=== PATIENT | male | born 1950 | race Caucasian/White ===

== ENCOUNTER → 2017-07-12 | Outpatient (CLI) | payer MEDICARE, BC, OTHER ==
[~2017-07-12] MED LIST: LIDOCAINE 1% MDV 20ML VIAL As Ordered ONE
--- NOTE | 2017-07-12 13:18 | REP ---
Clinical: Palpable mass. Adenopathy. Technique: Real time rodríguez scale and color evaluation using linear high frequency transducer. Findings: Directed ultrasound examination of the palpable mass along the right upper neck demonstrates a prominent but otherwise normal appearing lymph node measuring 20 x 18 x 8 mm demonstrating appropriate vascularity and central hilum. No fluid collection or further mass lesion identified. Impression: Palpable mass corresponds to normal appearing lymph node. Signed by Darnell Jackson MD 07/12/2017 01:10 P
--- NOTE | 2017-07-12 16:47 | REP ---
ULTRASOUND GUIDED RIGHT SUBMANDIBULAR LYMPH NODE BIOPSY: The procedure was performed under the direct supervision of Dr. Velasquez. The patient has a history of a 2 x 1.8 x 0.8 cm lymph node in the right submandibular region seen on a previous ultrasound performed earlier today. The risks and benefits of the procedure were explained to the patient and informed consent was obtained. The right submandibular lymph node was localized using ultrasound guidance. The skin was prepped and draped in a sterile fashion. 1% Lidocaine was used as a local anesthetic. Using ultrasound 6 fine-needle aspirations were obtained using 25 gauge needles. The patient tolerated the procedure well and there were no immediate complications. After the appropriate amount of monitored convalescence the patient was discharged from the department. Reviewed by BARBARA Navarrete 07/13/2017 03:02 PEdited and Signed by Cheo Velasquez MD 07/13/2017 04:09 P
== END | disposition home or self-care (01) ==
LOC: M RADPRO 10:15
PROVIDERS: ATTEND Surgery
DX: R89.6 Abnormal cytological findings in specimens from other organs, systems and tissues (principal); Z88.2 Allergy status to sulfonamides; Z79.899 Other long term (current) drug therapy; Z79.84 Long term (current) use of oral hypoglycemic drugs

== ENCOUNTER 2019-01-29 05:29 | Emergency (ER) | payer MEDICARE, BC, OTHER ==
[~2019-01-29] VITALS: Ht 188 cm; Wt 109.1 kg
[2019-01-29] MEDS ORDERED: KETOROLAC 30 MG/ML VIAL (J1885) IV ONE (06:00)
[2019-01-29] MEDS ORDERED: TAMSULOSIN 0.4 MG CAP PO ONE (06:30)
[2019-01-29 06:31] VITALS: BP 155/81
--- NOTE | 2019-01-29 07:20 | REPVR ---
EXAM: CT Abdomen and Pelvis Without Contrast EXAM DATE/TIME: 01/29/19 (6:09am) CLINICAL HISTORY: 68 year old male with left flank pain. Left renal colic. TECHNIQUE: Imaging protocol: Axial computed tomography images of the abdomen and pelvis without contrast. Coronal and sagittal reformatted images were created and reviewed. Radiation optimization: All CT scans at this facility use at least one of these dose optimization techniques: automated exposure control; mA and/or kV adjustment per patient size (includes targeted exams where dose is matched to clinical indication); or iterative reconstruction. COMPARISON: CT ABDOMEN PELVIS of 11/05/15 FINDINGS: Lower thorax: No acute findings. No pleural effusions. ABDOMEN: Liver: Normal. No solid mass. Gallbladder and bile ducts: Normal. No calcified stones. No ductal dilatation. Pancreas: Normal. No ductal dilatation. Spleen: Normal. No splenomegaly. Adrenals: Normal. No mass. Kidneys and ureters: Moderate left hydronephrosis. Irregular obstructing stone (5 mm size) in the proximal left ureter (located 4 cm below the left UP junction). No distal ureteral stones. Stomach and bowel: Normal. No bowel obstruction. No mucosal thickening. Appendix: A normal appendix is likely visualized. No evidence of appendicitis. PELVIS: Bladder: Unremarkable as visualized. Reproductive: Moderately enlarged prostate gland (5 - 5.5 cm diameter). ABDOMEN and PELVIS: Intraperitoneal space: Normal. No free air. No significant fluid collection. Bones/joints: No acute fracture nor dislocation. Soft tissues: Unremarkable. Vasculature: Normal. No abdominal aortic aneurysm. Lymph nodes: Normal. No enlarged lymph nodes. IMPRESSION: Moderate left hydronephrosis. Irregular obstructing stone (5 mm size) in the proximal left ureter (located 4 cm below the left UP junction). No distal ureteral stones. Moderately enlarged prostate gland. Electronically signed by: Marian Barrow On 01/29/2019 07:20:38 AM
[2019-01-29 07:24] LABS: BASO % 0.6 % (0.0-1.0); EOS # 0.2 10^3/uL (0.0-0.50); EOS % 3.5 % (0.0-3.0); HEMATOCRIT 40.4 % (42.0-52.0); LYMPH # 0.8 10^3/uL (1.5-4.5); MEAN CORPUSCULAR HGB CONC 34.7 g/dl (32.0-36.5); MEAN CORPUSCULAR VOLUME 89.6 fl (80.0-96.0); MONO # 0.7 10^3/uL (0.0-0.8); MONO % 14.5 % (0.0-5.0); NEUTROPHILS # 3.2 10^3/uL (1.8-7.7); PLATELET COUNT, AUTOMATED 222 10^3/uL (150-450); RED BLOOD COUNT 4.51 10^6/uL (4.30-6.10); WHITE BLOOD COUNT 4.9 10^3/uL (4.0-10.0)
[2019-01-29 07:33] LABS: BLOOD UREA NITROGEN 24 MG/DL (7-18); CALCIUM LEVEL 8.5 MG/DL (8.8-10.2); CARBON DIOXIDE LEVEL 26 MEQ/L (21-32); CHLORIDE LEVEL 106 MEQ/L (98-107); CREATININE FOR GFR 1.15 MG/DL (0.70-1.30); GLOMERULAR FILTRATION RATE > 60.0 (>49); GLUCOSE, FASTING 171 MG/DL (70-100); POTASSIUM SERUM 4.2 MEQ/L (3.5-5.1); SODIUM LEVEL 139 MEQ/L (136-145)
[2019-01-29] MEDS ORDERED: NS 500 ML IV ONE (07:45)
[2019-01-29] MEDS ORDERED: HYDR-3715 PO (08:32)
[2019-01-29] MEDS ORDERED: FLOM0.4C39 PO (08:32)
[2019-01-29] MEDS ORDERED: IBUP-1022 PO (08:34)
[2019-01-30] MEDS ORDERED: RAMI1CAP24 (23:05)
[2019-01-30] MEDS ORDERED: JANU100T (23:05)
[2019-01-30] MEDS ORDERED: ATOR40TA75 (23:05)
[2019-01-30] MEDS ORDERED: METF500T13 (23:05)
== END 2019-01-29 08:45 | disposition home or self-care (01) ==
LOC: M ED 05:29
DX: N23 Unspecified renal colic (principal); N13.30 Unspecified hydronephrosis; E11.9 Type 2 diabetes mellitus without complications; E78.00 Pure hypercholesterolemia, unspecified; Z87.442 Personal history of urinary calculi; Z88.1 Allergy status to other antibiotic agents; Z88.2 Allergy status to sulfonamides

== ENCOUNTER 2019-01-30 22:57 | Inpatient (IN) | payer MEDICARE, BC, OTHER ==
[~2019-01-30] VITALS: Ht 188 cm; Wt 109.9 kg
[~2019-01-30 22:57] MED LIST changes: +FLOM0.4C39 PO; +HYDR-3715 PO; +IBUP-1022 PO; -LIDOCAINE 1% MDV 20ML VIAL As Ordered ONE
[2019-01-30] MEDS ORDERED: METF500T13 (23:05)
[2019-01-30] MEDS ORDERED: JANU100T (23:05)
[2019-01-30] MEDS ORDERED: ATOR40TA75 (23:05)
[2019-01-30] MEDS ORDERED: RAMI1CAP24 (23:05)
[2019-01-30] MEDS ORDERED: KETOROLAC 30 MG/ML VIAL (J1885) IV ONE (23:30)
[2019-01-31 00:10] LABS: CALCIUM LEVEL 8.4 MG/DL (8.8-10.2); CREATININE FOR GFR 2.06 MG/DL (0.70-1.30); GLOMERULAR FILTRATION RATE 34.5 (>49); POTASSIUM SERUM 3.9 MEQ/L (3.5-5.1)
[2019-01-31 00:12] LABS: BASO % 0.2 % (0.0-1.0); EOS # 0.1 10^3/uL (0.0-0.50); EOS % 0.4 % (0.0-3.0); HEMATOCRIT 38.3 % (42.0-52.0); HEMOGLOBIN 13.3 g/dl (13.5-17.5); LYMPH # 0.6 10^3/uL (1.5-4.5); LYMPH % 4.8 % (24.0-44.0); MEAN CORPUSCULAR HGB CONC 34.7 g/dl (32.0-36.5); MEAN CORPUSCULAR VOLUME 89.3 fl (80.0-96.0); MONO # 1.6 10^3/uL (0.0-0.8); MONO % 14.2 % (0.0-5.0); NEUTROPHILS # 9.2 10^3/uL (1.8-7.7); NEUTROPHILS % 79.9 % (36.0-66.0); PLATELET COUNT, AUTOMATED 222 10^3/uL (150-450); RED BLOOD COUNT 4.29 10^6/uL (4.30-6.10); WHITE BLOOD COUNT 11.5 10^3/uL (4.0-10.0)
[2019-01-31] MEDS ORDERED: MORPHINE 4 MG/ML 1ML VIAL/SYRINGE (J2270) IV PRN (00:15)
[2019-01-31] MEDS ORDERED: ONDANSETRON 4MG/2ML VIAL (J2405) IV ONE (00:15)
--- NOTE | 2019-01-31 01:52 | REPVR ---
EXAM: CT Abdomen and Pelvis Without Contrast EXAM DATE/TIME: 01/31/2019 12:12 AM CLINICAL HISTORY: 68 years old, male; Abdominal pain; Flank; Left; Additional info: Left renal colic TECHNIQUE: Imaging protocol: Axial computed tomography images of the abdomen and pelvis without contrast. Coronal and sagittal reformatted images were created and reviewed. Radiation optimization: All CT scans at this facility use at least one of these dose optimization techniques: automated exposure control; mA and/or kV adjustment per patient size (includes targeted exams where dose is matched to clinical indication); or iterative reconstruction. COMPARISON: CT ABD PELVIS W/O CONTRAST 01/29/2019 6:07 AM FINDINGS: Lower thorax: Unremarkable. ABDOMEN: Liver: Unremarkable. No liver lesion is seen. The contour of the liver is smooth. No hepatomegaly is noted. Gallbladder and bile ducts: No calcified gallstones are seen. No gallbladder wall thickening, pericholecystic fluid, or pericholecystic inflammatory changes are identified. No dilation of the intrahepatic or extrahepatic bile ducts is noted. Pancreas: The pancreas is atrophic and otherwise unremarkable. No dilation of the main pancreatic duct is noted. Spleen: Unremarkable. No splenomegaly. Adrenals: Normal. No mass. Kidneys and ureters: There is a 5 mm calculus in the left distal ureter just proximal to the left ureterovesical junction and [id number] left hydroureteronephrosis with left perinephric and periureteral stranding. This 5 mm left ureteral calculus has migrated distally from the left proximal ureter since the prior CT scan on 01/29/2019. There is also a 4 mm calculus in the right distal ureter just proximal to the right ureterovesical junction and mild right hydroureteronephrosis with right perinephric and right periureteral stranding. The 4 mm right ureteral calculus that has migrated distally from the right distal ureter since the prior CT scan on 01/29/2019. No stones are noted in the renal collecting systems. No renal lesion is identified. Stomach and bowel: There is no evidence for a bowel obstruction, diverticulosis, diverticulitis, colitis, pneumatosis intestinalis, intussusception, volvulus, or perforated viscus. The descending colon and sigmoid colon are decompressed, limiting their optimal evaluation. Appendix: Normal. There is no evidence for appendicitis. PELVIS: Bladder: No stones are noted in the urinary bladder. There is no bladder wall thickening. There is a small fat containing direct right inguinal hernia that also contains a portion of the right anterior aspect of the urinary bladder, which is similar in appearance compared to the prior CT scan on 01/29/2019. Reproductive: The prostate gland is enlarged and measures 5.7 cm x 5.7 cm x 5.3 cm, and the volume of the prostate gland is increased and measures 90.2 mL. The seminal vesicles are unremarkable. ABDOMEN and PELVIS: Intraperitoneal space: Normal. No free air. No fluid collection. Bones/joints: The imaged bony structures are intact. There is no suspicious osteolytic or osteoblastic lesion. There are degenerative changes in the lumbar spine. Soft tissues: Unremarkable. Vasculature: The abdominal aorta is normal in caliber. There are mild atherosclerotic calcifications. Lymph nodes: Normal. No enlarged lymph nodes. IMPRESSION: 1. 5 mm calculus in the left distal ureter just proximal to the left uterovesical junction that has migrated distally from the left proximal ureter since the prior CT scan on 01/29/2019 and is mild to moderate left hydroureteronephrosis. 2. 4 mm calculus in the right distal ureter just proximal to the right ureterovesical junction that has migrated distally from the right distal ureter since the prior CT scan on 01/29/2019 and there is mild right hydroureteronephrosis. 3. Small fat containing direct right inguinal hernia that also contains a portion of the right anterior aspect of the urinary bladder, which is similar in appearance compared to the prior CT scan on 01/29/2019. 4. Enlarged prostate gland. Electronically signed by: Toni Blakely On 01/31/2019 01:52:23 AM
[2019-01-31] MEDS ORDERED: FLOM0.4C39 PO (03:15)
[2019-01-31] MEDS ORDERED: IBUP1TAB6 PO (03:15)
[2019-01-31] MEDS ORDERED: METF500T13 PO (03:15)
[2019-01-31] MEDS ORDERED: RAMI1CAP24 PO (03:15)
[2019-01-31] MEDS ORDERED: NORC1TAB7 PO (03:15)
[2019-01-31] MEDS ORDERED: ASPI81TAEC PO (03:15)
[2019-01-31] MEDS ORDERED: ATOR40TA75 PO (03:15)
[2019-01-31] MEDS ORDERED: VITMTA PO (03:15)
[2019-01-31] MEDS ORDERED: JANU100T PO (03:15)
[2019-01-31] MEDS ORDERED: GLUCAGON FOR INJ 1 MG VIAL (J1610) SC PRN (04:00)
[2019-01-31] MEDS ORDERED: DEXTROSE 50% 50 ML SYRINGE IV PRN (04:00)
[2019-01-31] MEDS ORDERED: GLUCOSE 4 GM CHEW TABLET PO PRN (04:00)
[2019-01-31] MEDS: NS 1,000 ML IV SCH ×3 (05:17→20:44)
[2019-01-31 05:45] VITALS: BP 140/81
[2019-01-31] MEDS: PHENAZOPYRIDINE 100 MG TAB PO SCH ×2 (06:00→14:00)
[2019-01-31] MEDS: HumaLOG INSULIN (NovoLOG) PER UNIT SC SCH ×3 (06:22→18:00)
--- NOTE | 2019-01-31 06:55 | HPE ---
DATE OF ADMISSION: 01/31/2019 HISTORY OF PRESENT ILLNESS: The patient is a 68-year-old male with past medical history of hypertension and prediabetes who presented first to the [facility] emergency room on January 28, 2019 with abdominal pain and back pain for two days, and that was similar to the pain he felt when he previously had a kidney stone. He states that the pain at its worst was a 9 out of 10. When he was in the ER last, he was given hydrocodone and told to follow-up with his primary care physician. He was also found to have a kidney stone that was 4 mm in the right ureteropelvic junction. This morning, he states that he feels worse than he did on Wednesday, his pain is 9 out of 10, he is unable to be comfortable and he has a constant pain in his back and bloating in his stomach. The hydrocodone did not help his pain nor did the ibuprofen that he was given by the emergency room so he came back. In the emergency room, he underwent a CT scan and was found to have a 5 mm calculus in the left distal ureter that had moved distally from the left proximal ureter and a 4 mm calculus on the right distal ureter, so the hospitalist service was called for admission. PAST MEDICAL HISTORY: The patient has: 1. Hypertension. 2. Prediabetes. 3. Hyperlipidemia. PAST SURGICAL HISTORY: 1. Tonsillectomy. 2. Discectomy. ALLERGIES: No known drug allergies. SOCIAL HISTORY: He is a nonsmoker. Does not drink alcohol. 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 PHYSICAL EXAMINATION: VITALS: Temperature 98, pulse is 85, respiratory rate 16, blood pressure 148/68, pulse oximetry is 95% on room air. GENERAL: He is awake, lying in bed, very pleasant, does not appear in any acute distress. HEENT EXAM: Mucous membranes are moist. Extraocular movements are intact. He has good dentition. Thyroid is not enlarged. LUNGS: Clear to auscultation bilaterally without any adventitious breath sounds appreciated. CARDIOVASCULAR: Regular rate and rhythm. No murmurs, rubs or gallops. Normal S1 and normal S2. ABDOMEN: Soft and nontender. Positive bowel sounds. No organomegaly and no masses. EXTREMITIES: No clubbing, cyanosis, or edema. MUSCULOSKELETAL: He has 5/5 strength in his upper and lower extremities. NEURO: Cranial nerves II through XII are intact without any focal deficit. He is awake, alert and oriented times three with a normal mood and a normal affect. LABS: His white blood cell count is 11.5, hemoglobin is 13.3, hematocrit is 38.3, and his platelet count is 222. His sodium is 136, potassium 3.9, chloride is 101, carbon dioxide is 27. His BUN is 23. His creatinine is 2.06. Fasting glucose is 275 and his calcium is 8.4. His urine was significant for 3+ glucose, 3+ blood, 7 white blood cells, and 82 red blood cells. IMAGING: He underwent an abdomen and pelvis CT with the findings of: 1. 5 mm calculus in the left distal ureter just proximal to the left ureterovesical junction that had migrated distally from the left proximal ureter since the prior CT scan on January 29, 2019 and there is mild to moderate left hydroureteronephrosis. 2. 4 mm calculus on the right distal ureter just proximal to the ureterovesical junction that has migrated distally from the right distal ureter since the prior CT scan on January 29, 2019 and there is mild right hydroureteronephrosis. 3. Small fat containing direct right inguinal hernia that also contains a portion of the right anterior aspect of the urinary bladder which is similar in appearance compared the prior CT scan on 01/29/2019. 4. Enlarged prostate gland. ASSESSMENT/PLAN: This is a 68-year-old male with bilateral ureteral stones and bilateral hydroureteronephrosis. PLAN: 1. Ureteral stones. The patient will be aggressively hydrated with IV fluids and admitted to the medical/surgical floor. Urology has been consulted and will see the patient in the morning, likely for surgery to remove the stones. The patient will remain nothing by mouth for now and pain will be managed with morphine 2 mg IV every 4 hours. We will hold the patient's home ramipril, metformin, simvastatin and aspirin at this time for pending surgery. 2. Prediabetes. The patient will be placed on sliding scale insulin at this time and the patient will remain nothing by mouth until further instruction from the urologist. 3. Hypertension. The patient is on ramipril at home. At this time, his blood pressure is 148/68. Holding the ramipril for possible surgery in the morning. Will continue to monitor. My faculty preceptor for this patient encounter was physically present during the encounter and was fully available. All aspects of the patient interview, examination, medical decision making process, and medical care plan development were reviewed and approved by the faculty preceptor. The faculty preceptor is aware and concurs with the plan as stated in the body of this note and will attest to such by his/her co-signature. THOR
--- NOTE | 2019-01-31 07:32 | IPNPDOC ---
Date Seen The patient was seen on 01/31/19. Progress Note SUBJECTIVE: Pt had some relief with toradol, but due to increased creatinine, changed to morphine. no c/o chills, dysuria. plans for stent and dc today or in am per urology. no c/o sob despite iv fluids. PHYSICAL EXAMINATION: VITALS: PLS SEE BELOW GENERAL: He is awake, lying in bed, very pleasant, does not appear in any acute distress. HEENT EXAM: Mucous membranes are moist. Extraocular movements are intact. He has good dentition. Thyroid is not enlarged. LUNGS: Clear to auscultation bilaterally without any adventitious breath sounds appreciated. CARDIOVASCULAR: Regular rate and rhythm. No murmurs, rubs or gallops. Normal S1 and normal S2. ABDOMEN: no cva tenderness Soft and nontender. Positive bowel sounds. No organomegaly and no masses. EXTREMITIES: No clubbing, cyanosis, or edema. MUSCULOSKELETAL: He has 5/5 strength in his upper and lower extremities. NEURO: Cranial nerves II through XII are intact without any focal deficit. He is awake, alert and oriented times three with a normal mood and a normal affect. LABS: reviewed. pls see below His urine was significant for 3+ glucose, 3+ blood, 7 white blood cells, and 82 red blood cells. IMAGING: He underwent an abdomen and pelvis CT with the findings of: 1. 5 mm calculus in the left distal ureter just proximal to the left ureterovesical junction that had migrated distally from the left proximal ureter since the prior CT scan on January 29, 2019 and there is mild to moderate left hydroureteronephrosis. 2. 4 mm calculus on the right distal ureter just proximal to the ureterovesical junction that has migrated distally from the right distal ureter since the prior CT scan on January 29, 2019 and there is mild right hydroureteronephrosis. 3. Small fat containing direct right inguinal hernia that also contains a portion of the right anterior aspect of the urinary bladder which is similar in appearance compared the prior CT scan on 01/29/2019. 4. Enlarged prostate gland. ASSESSMENT/PLAN: The patient is a 68-year-old male with past medical history of hypertension and prediabetes who presented first to the [facility] emergency room on January 28, 2019 with abdominal pain and back pain for two days, and that was similar to the pain he felt when he previously had a kidney stone. He states that the pain at its worst was a 9 out of 10. When he was in the ER last, he was given hydrocodone and told to follow-up with his primary care physician. He was also found to have a kidney stone that was 4 mm in the right ureteropelvic junction. This morning, he states that he feels worse than he did on Wednesday, his pain is 9 out of 10, he is unable to be comfortable and he has a constant pain in his back and bloating in his stomach. The hydrocodone did not help his pain nor did the ibuprofen that he was given by the emergency room so he came back. In the emergency room, he underwent a CT scan and was found to have a 5 mm calculus in the left distal ureter that had moved distally from the left proximal ureter and a 4 mm calculus on the right distal ureter, so the hospitalist service was called for admission. He is a nonsmoker. Does not drink alcohol. 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 PLAN: OBSTRUCTIVE UROPATHY. with bilateral Ureteral stones. The patient will be aggressively hydrated with IV fluids and admitted to the medical/surgical floor. Urology has been consulted for cystoscopy, stone extraction, and stent placement. hypoglycemic protocol while npo. The patient will remain nothing by mouth for now and pain will be managed with morphine 2 mg IV every 4 hours. We will hold the patient's home ramipril, metformin, simvastatin and aspirin at this time for pending surgery. Acute Kidney injury due to obstructive uropathy from bilateral ureteral stones. The patient will be aggressively hydrated with IV fluids and admitted to the medical/surgical floor. Urology has been consulted for cystoscopy, stone extraction, and stent placement. hypoglycemic protocol while npo. The patient will remain nothing by mouth for now and pain will be managed with morphine 2 mg IV every 4 hours. We will hold the patient's home ramipril, metformin, simvastatin and aspirin at this time for pending surgery. Prediabetes. The patient will be placed on sliding scale insulin at this time and the patient will remain nothing by mouth until further instruction from the urologist. hyoglycemic protocol. Hypertension. The patient is on ramipril at home. At this time, his blood pressure is 148/68. Holding the ramipril for possible surgery in the morning. Will continue to monitor. DVT prophylaxis: hold ASA due to pending procedure. compression stockings. dispo: later today or in am. VS, I&O, 24H, Fishbone Vital Signs/I&O Vital Signs Date Time Temp Pulse Resp B/P (MAP) Pulse Ox O2 Delivery O2 Flow Rate FiO2 01/31/19 05:45 96.5 65 20 140/81 (100) 96 01/31/19 04:44 Room Air I&O- Last 24 Hours up to 6 AM 01/31/19 06:00 Intake Total 0 ml Balance 0 ml Laboratory Data 24H LABS Laboratory Tests 2 01/30/19 23:41: Immature Granulocyte % (Auto) 0.5, White Blood Count 11.5H, Red Blood Count 4.29L, Hemoglobin 13.3L, Hematocrit 38.3L, Mean Corpuscular Volume 89.3, Mean Corpuscular Hemoglobin 31.0, Mean Corpuscular Hemoglobin Concent 34.7, Red Cell Distribution Width 12.0, Platelet Count 222, Neutrophils (%) (Auto) 79.9H, Lymphocytes (%) (Auto) 4.8L, Monocytes (%) (Auto) 14.2H, Eosinophils (%) (Auto) 0.4, Basophils (%) (Auto) 0.2, Neutrophils # (Auto) 9.2H, Lymphocytes # (Auto) 0.6L, Monocytes # (Auto) 1.6H, Eosinophils # (Auto) 0.1, Basophils # (Auto) 0.0, Nucleated Red Blood Cells % (auto) 0.0, Anion Gap 8, Glomerular Filtration Rate 34.5L, Blood Urea Nitrogen 23H, Creatinine 2.06#H, Sodium Level 136, Potassium Level 3.9, Chloride Level 101, Carbon Dioxide Level 27, Calcium Level 8.4L 01/31/19 00:33: Urine Color YELLOW, Urine Appearance CLEAR, Urine pH 5.0, Urine Specific Thornton 1.008, Urine Protein NEGATIVE, Urine Glucose (UA) 3+H, Urine Ketones NEGATIVE, Urine Blood 3+H, Urine Nitrite NEGATIVE, Urine Bilirubin NEGATIVE, Urine Urobilinogen 0.2, Urine Leukocyte Esterase NEGATIVE, Urine WBC (Auto) 7H, Urine RBC (Auto) 82H, Urine Hyaline Casts (Auto) 0, Urine Bacteria (Auto) 1+H, Urine Squamous Epithelial Cells 0, Urine Sperm (Auto) 01/31/19 06:14: Bedside Glucose (Misc Panel) 128H CBC/BMP Laboratory Tests 01/30/19 23:41 Red Blood Count 4.29 L, Mean Corpuscular Volume 89.3, Mean Corpuscular Hemoglobin 31.0, Mean Corpuscular Hemoglobin Concent 34.7, Red Cell Distribution Width 12.0, Neutrophils (%) (Auto) 79.9 H, Lymphocytes (%) (Auto) 4.8 L, Monocytes (%) (Auto) 14.2 H, Eosinophils (%) (Auto) 0.4, Basophils (%) (Auto) 0.2, Neutrophils # (Auto) 9.2 H, Lymphocytes # (Auto) 0.6 L, Monocytes # (Auto) 1.6 H, Eosinophils # (Auto) 0.1, Basophils # (Auto) 0.0, Calcium Level 8.4 L BHUPINDER SAUNDERS MD Jan 31, 2019 07:31
[2019-01-31 08:25] LABS: HEMATOCRIT 35.8 % (42.0-52.0); HEMOGLOBIN 12.3 g/dl (13.5-17.5); MEAN CORPUSCULAR HGB CONC 34.4 g/dl (32.0-36.5); MEAN CORPUSCULAR VOLUME 90.2 fl (80.0-96.0); PLATELET COUNT, AUTOMATED 203 10^3/uL (150-450); RED BLOOD COUNT 3.97 10^6/uL (4.30-6.10); WHITE BLOOD COUNT 8.3 10^3/uL (4.0-10.0)
[2019-01-31] MEDS: CIPROFLOXACIN 400 MG in APPROPRIATE DILUENT 1 EA IV SCH ×2 (08:27→20:59)
[2019-01-31] MEDS: ONDANSETRON 4MG/2ML VIAL (J2405) IV PRN (08:27)
[2019-01-31] MEDS: ATORVASTATIN 20 MG TAB PO SCH (08:27)
[2019-01-31] MEDS: MORPHINE 4 MG/ML 1ML VIAL/SYRINGE (J2270) IV PRN ×2 (08:27→13:11)
--- NOTE | 2019-01-31 08:39 | REP ---
KUB: Single view. History: Left renal colic. Comparison CT study January 29, 2019. This showed a obstructing 5 mm proximal ureteral calculus on the left. Findings: On today's radiograph there is a elliptical shaped calcific density in the left pelvis just above the level of the iliac spines consistent with a left distal ureteral stone. This calcific density measures 5 mm in diameter. No other urinary tract calculus is seen. Impression: Findings consistent with left distal ureteral calculus noted. 5 mm. Electronically Signed by Cheo Velasquez MD 01/31/2019 09:13 A
[2019-01-31 08:42] LABS: CALCIUM LEVEL 8.4 MG/DL (8.8-10.2); CREATININE FOR GFR 1.51 MG/DL (0.70-1.30); GLOMERULAR FILTRATION RATE 49.3 (>49); POTASSIUM SERUM 3.9 MEQ/L (3.5-5.1)
[2019-01-31 08:44] LABS: INR 1.01; PARTIAL THROMBOPLASTIN TIME 31.9 SECONDS (25.4-37.6); PROTHROMBIN TIME 13.4 SECONDS (12.1-14.4)
[2019-01-31] MEDS ORDERED: TAMSULOSIN 0.4 MG CAP PO SCH (09:00)
[2019-01-31] MEDS ORDERED: **UNRESOLVED NON-FORMULARY MED ORDER XX SCH (09:00)
[2019-01-31] MEDS ORDERED: PERCOCET 5MG/325MG TAB PO PRN ×3 (09:00→18:30)
--- NOTE | 2019-01-31 12:42 | CR ---
DATE OF CONSULTATION: 01/31/2019 REASON FOR CONSULTATION: Left flank pain with distal left ureteral calculus. Darnell Deshpande is a 68-year-old male with a history of hypertension and diabetes, who presented to the emergency room yesterday for the second time in 3 days for management of excruciating left flank and left lower quadrant pain. He was seen initially on January [address] scan as having a distal left ureteral calculus, measuring 5 mm. The pain was associated with some nausea and vomiting. He was discharged home with both narcotic and non-narcotic pain medicine and has struggled for the last 48 hours. He returned on January 30 with similar complaints, though his complaints were more in the groin. There was no associated fever. He did have some intermittent sense of urgency with small void. CT scan was repeated, documenting that the stone had moved more distally. Once again, he was afebrile at home. He denied any gross hematuria. Denied any dysuria. Of note, on CT scan the patient was also found to have a 4 mm stone in the distal right ureter, which has been completely asymptomatic. The patient does give a history of stone disease with spontaneous passage a number of years ago, and his symptoms were quite similar. He was also noted on his return to the emergency room to have a rise in his creatinine up to 2.06 last evening. PAST MEDICAL HISTORY: Previously mentioned and is significant for: 1. Hypertension. 2. Diabetes. PAST SURGICAL HISTORY: Significant for: 1. Tonsillectomy. 2. Discectomy. PHYSICAL EXAMINATION: He is a very comfortable-appearing male. His abdomen is soft and nontender. There are no palpale masses. There is no evidence of any rebound or guarding. He has some mild left costovertebral angle (CVA) tenderness. LABORATORY STUDIES: Reveal a hematocrit of 38.3 with a hemoglobin of 13.3 and a white blood cell count of 11.5 thousand on presentation last evening. BUN and creatinine 23/2.06. They have not been repeated this morning. CT scan, as previously mentioned, revealed bilateral stones in the distal ureter, the left measuring 5 mm, the right 4 mm. ASSESSMENT: Bilateral distal ureteral calculi with severe symptomatology on the left. PLAN: Take the patient to the operating room today for cystoscopy with bilateral ureteroscopy and laser lithotripsy. Please note I have discussed with the patient in the presence of his a number of options available, including continued conservative management with fluids, pain medicine, and antibiotics versus surgical intervention. I have discussed with them the risks of the procedure, including, but not limited to, bleeding, infection, pain, inability to get a wire up to the stone, inability to fragment the stone adequate, proximal migration of the stone. I have also discussed with them the need for stents postoperatively and the need for outpatient followup for stent removal. I have gone as far as to tell him that I will not be in town for his stent removal, and that it will be performed by another one of the urologists in the office. I have also offered him unilateral ureteroscopy versus bilateral, and he is extremely eager to not have a repeat of the discomfort that he had yesterday and has elected to have bilateral ureteroscopy with laser lithotripsy.
[2019-01-31 14:00] VITALS: BP 155/80
[2019-01-31] MEDS ORDERED: traMADol 50 MG TAB PO ONE (14:15)
[2019-01-31] MEDS ORDERED: MORPHINE 1MG/ML IN 0.9% NACL 100ML IV BAG IV PRN (15:00)
[2019-01-31] MEDS ORDERED: NALOXONE INJ 0.4 MG/1 ML VIAL (J2310) IV PRN (15:00)
[2019-01-31] MEDS ORDERED: NALBUPHINE HCL 10 MG/ML AMP (J2300) IV PRN (15:00)
[2019-01-31] MEDS ORDERED: diphenhydrAMINE INJ 50MG/ML VIAL (J1200) IV PRN (15:00)
[2019-01-31] MEDS ORDERED: EPIDURAL/PCA KEYS XX PRN (15:00)
[2019-01-31] MEDS ORDERED: fentaNYL 100 MCG/2 ML INJECTION (J3010) As Ordered ONE ×3 (16:10→17:45)
[2019-01-31] MEDS ORDERED: MIDAZOLAM INJ 2 MG/2 ML VIAL (J2250) As Ordered ONE ×2 (16:10→18:13)
[2019-01-31] MEDS ORDERED: LIDOCAINE 2% INJ 100 MG/5 ML SDV (FOR ANES.) As Ordered ONE (16:10)
[2019-01-31] MEDS ORDERED: PROPOFOL 200 MG/20 ML VIAL As Ordered ONE (16:10)
[2019-01-31] MEDS ORDERED: CONRAY-60 60% 50ML VIAL (Q9961) As Ordered ONE (16:11)
[2019-01-31] MEDS ORDERED: LIDOCAINE 2% 5ML JELLY UROJET As Ordered ONE (16:37)
[2019-01-31] MEDS ORDERED: ONDANSETRON 4MG/2ML VIAL (J2405) As Ordered ONE (17:01)
[2019-01-31] MEDS ORDERED: dexameTHASONE 4 MG/ML 1ML VIAL (J1100) As Ordered ONE (17:01)
[2019-01-31] MEDS ORDERED: ePHEDrine SULFATE 25 MG/5 ML(5MG/ML) SYRINGE As Ordered ONE (17:15)
[2019-01-31] MEDS ORDERED: CIPROFLOXACIN 250 MG TAB PO SCH (18:00)
[2019-01-31] MEDS ORDERED: ONDANSETRON 4MG/2ML VIAL (J2405) IV PRN (18:30)
[2019-01-31] MEDS ORDERED: fentaNYL 100 MCG/2 ML INJECTION (J3010) IV PRN (18:30)
[2019-01-31] MEDS ORDERED: MORPHINE 10 MG/ML 1ML VIAL (J2270) IV PRN (18:30)
[2019-01-31] MEDS ORDERED: LR 1,000 ML IV SCH (18:30)
[2019-01-31] MEDS ORDERED: BELLADONNA ALKALOIDS/OPIUM SUPP As Ordered ONE (18:58)
[2019-01-31] MEDS ORDERED: MORPHINE 1MG/ML IN 0.9% NACL 100ML IV BAG As Ordered ONE (19:14)
[2019-01-31] MEDS ORDERED: BELLADONNA ALKALOIDS/OPIUM SUPP PR ONE (19:15)
[2019-01-31] MEDS ORDERED: PHENAZOPYRIDINE 100 MG TAB PO ONE (19:30)
[2019-01-31 20:42] VITALS: BP 178/90
[2019-01-31 21:10] VITALS: BP 165/88
[2019-01-31 22:05] VITALS: BP 172/93
[2019-01-31 23:05] VITALS: BP 166/85
[2019-02-01 00:05] VITALS: BP 166/82
[2019-02-01] MEDS: HumaLOG INSULIN (NovoLOG) PER UNIT SC SCH ×5 (00:42→20:30)
[2019-02-01 01:05] VITALS: BP 148/76
[2019-02-01] MEDS: NS 1,000 ML IV SCH ×3 (05:48→22:45)
[2019-02-01] MEDS: PHENAZOPYRIDINE 100 MG TAB PO SCH ×3 (05:48→20:30)
[2019-02-01 06:00] VITALS: BP 158/81
[2019-02-01 07:11] LABS: HEMATOCRIT 32.8 % (42.0-52.0); MEAN CORPUSCULAR HEMOGLOBIN 30.3 pg (27.0-33.0); MEAN CORPUSCULAR HGB CONC 33.5 g/dl (32.0-36.5); MEAN CORPUSCULAR VOLUME 90.4 fl (80.0-96.0); PLATELET COUNT, AUTOMATED 200 10^3/uL (150-450); RED BLOOD COUNT 3.63 10^6/uL (4.30-6.10); WHITE BLOOD COUNT 10.5 10^3/uL (4.0-10.0)
[2019-02-01 07:31] LABS: CALCIUM LEVEL 7.7 MG/DL (8.8-10.2); CREATININE FOR GFR 1.9 MG/DL (0.70-1.30); GLOMERULAR FILTRATION RATE 37.8 (>49); POTASSIUM SERUM 4.4 MEQ/L (3.5-5.1)
[2019-02-01] MEDS ORDERED: CIPR500S PO (07:32)
[2019-02-01] MEDS ORDERED: AMLO10TA5 PO (07:44)
[2019-02-01] MEDS ORDERED: NS 1,000 ML IV SCH (07:45)
[2019-02-01] MEDS: CIPROFLOXACIN 400 MG in APPROPRIATE DILUENT 1 EA IV SCH (08:01)
[2019-02-01] MEDS: ATORVASTATIN 20 MG TAB PO SCH (08:01)
--- NOTE | 2019-02-01 08:09 | IPNPDOC ---
Date Seen The patient was seen on 02/01/19. Progress Note SUBJECTIVE:Per urology, ok to dc home, but creatinine increased from 1.5 to 1.9 s/p toradol two days ago and recent lithotripsy. pt has no pain. requesting bowel regimen, and not keen on taking norco as he has no pain. PHYSICAL EXAMINATION: VITALS: PLS SEE BELOW GENERAL: He is awake, lying in bed, very pleasant, does not appear in any acute distress. HEENT EXAM: Mucous membranes are moist. Extraocular movements are intact. He has good dentition. Thyroid is not enlarged. LUNGS: Clear to auscultation bilaterally without any adventitious breath sounds appreciated. CARDIOVASCULAR: Regular rate and rhythm. No murmurs, rubs or gallops. Normal S1 and normal S2. ABDOMEN: no cva tenderness Soft and nontender. Positive bowel sounds. No organomegaly and no masses. EXTREMITIES: No clubbing, cyanosis, or edema. MUSCULOSKELETAL: He has 5/5 strength in his upper and lower extremities. NEURO: Cranial nerves II through XII are intact without any focal deficit. He is awake, alert and oriented times three with a normal mood and a normal affect. LABS: reviewed. pls see below His urine was significant for 3+ glucose, 3+ blood, 7 white blood cells, and 82 red blood cells. IMAGING: He underwent an abdomen and pelvis CT with the findings of: 1. 5 mm calculus in the left distal ureter just proximal to the left ureterovesical junction that had migrated distally from the left proximal ureter since the prior CT scan on January 29, 2019 and there is mild to moderate left hydroureteronephrosis. 2. 4 mm calculus on the right distal ureter just proximal to the ureterovesical junction that has migrated distally from the right distal ureter since the prior CT scan on January 29, 2019 and there is mild right hydroureteronephrosis. 3. Small fat containing direct right inguinal hernia that also contains a portion of the right anterior aspect of the urinary bladder which is similar in appearance compared the prior CT scan on 01/29/2019. 4. Enlarged prostate gland. ASSESSMENT/PLAN: The patient is a 68-year-old male with past medical history of hypertension and prediabetes who presented first to the [facility] emergency room on January 28, 2019 with abdominal pain and back pain for two days, and that was similar to the pain he felt when he previously had a kidney stone. He states that the pain at its worst was a 9 out of 10. When he was in the ER last, he was given hydrocodone and told to follow-up with his primary care physician. He was also found to have a kidney stone that was 4 mm in the right ureteropelvic junction. This morning, he states that he feels worse than he did on Wednesday, his pain is 9 out of 10, he is unable to be comfortable and he has a constant pain in his back and bloating in his stomach. The hydrocodone did not help his pain nor did the ibuprofen that he was given by the emergency room so he came back. In the emergency room, he underwent a CT scan and was found to have a 5 mm calculus in the left distal ureter that had moved distally from the left proximal ureter and a 4 mm calculus on the right distal ureter, so the hospitalist service was called for admission. He is a nonsmoker. Does not drink alcohol. 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 PLAN: OBSTRUCTIVE UROPATHY. with bilateral Ureteral stones. The patient will be aggressively hydrated with IV fluids and admitted to the medical/surgical floor. Urology has been consulted for cystoscopy, stone extraction, and stent placement. hypoglycemic protocol while npo. The patient will remain nothing by mouth for now and pain will be managed with morphine 2 mg IV every 4 hours. We will hold the patient's home ramipril, metformin, simvastatin and aspirin at this time for pending surgery. Acute Kidney injury due to obstructive uropathy from bilateral ureteral stones. The patient will be aggressively hydrated with IV fluids and admitted to the medical/surgical floor. Urology : s/p ureteroscopy 01/31/19 and laser lithotripsy.s/p hypoglycemic protocol while npo. Held the patient's home ramipril, metformin,and aspirin due to renal failure and recent urologic procedure with ongoing hematuria respectively. repeat us kidney after 2 liters ivfluid hydration. Hematuria s/p ureteroscopy with laser lithotripsy on cipro renally dosed for total of 7 days per urology dc rodarte trial of void outpt fu w urology in 7-[address] angeles acute blood loss anemia due to gross hematuria H&H stable asx. no acute indication for rbc transfusion Prediabetes. The patient will be placed on sliding scale insulin at this time. off metformin due to renal failure due to risk of lactic acidosis. hyoglycemic protocol. Hypertension. The patient is on ramipril at home. At this time, his blood pressure is 148/68. held ramipril due to renal failure. on norvasc DVT prophylaxis: hold ASA due to pending procedure. compression stockings. dispo: later today or in am pending improvement in creatinine and repeat us. VS, I&O, 24H, Fishbone Vital Signs/I&O Vital Signs Date Time Temp Pulse Resp B/P (MAP) Pulse Ox O2 Delivery O2 Flow Rate FiO2 02/01/19 06:00 98.8 70 18 158/81 (106) 97 2.0 01/31/19 04:44 Room Air I&O- Last 24 Hours up to 6 AM 02/01/19 06:00 Intake Total 1400 ml Output Total 2300 ml Balance -900 ml Laboratory Data 24H LABS Laboratory Tests 2 01/31/19 08:02: Nucleated Red Blood Cells % (auto) 0.0, Prothrombin Time 13.4, Prothromb Time International Ratio 1.01, Activated Partial Thromboplast Time 31.9, Anion Gap 5L, Glomerular Filtration Rate 49.3, Blood Urea Nitrogen 22H, Creatinine 1.51H, Sodium Level 139, Potassium Level 3.9, Chloride Level 107, Carbon Dioxide Level 27, Calcium Level 8.4L 01/31/19 11:56: Bedside Glucose (Misc Panel) 153H 01/31/19 18:15: 02/01/19 00:20: Bedside Glucose (Misc Panel) 189H 02/01/19 05:43: Bedside Glucose (Misc Panel) 141H 02/01/19 06:45: Nucleated Red Blood Cells % (auto) 0.0 CBC/BMP Laboratory Tests 01/31/19 08:02 Red Blood Count 3.97 L, Mean Corpuscular Volume 90.2, Mean Corpuscular Hemoglobin 31.0, Mean Corpuscular Hemoglobin Concent 34.4, Red Cell Distribution Width 12.0, Calcium Level 8.4 L 02/01/19 06:45 Red Blood Count 3.63 L, Mean Corpuscular Volume 90.4, Mean Corpuscular Hemoglobin 30.3, Mean Corpuscular Hemoglobin Concent 33.5, Red Cell Distribution Width 12.0 BHUPINDER SAUNDERS MD Feb 01, 2019 07:27
[2019-02-01] MEDS ORDERED: PERCOCET 5MG/325MG TAB PO PRN ×2 (08:45)
--- NOTE | 2019-02-01 08:46 | IPN ---
DATE: 02/01/2019 Mr. Deshpande is postoperative day one status post bilateral ureteroscopy with stone removal and stent placement. He is feeling much better though he does have a sensation of some urinary urgency and pressure. He has an indwelling Pedraza catheter and his urine is somewhat bloody though it is dark consistent with some old blood. His abdominal examination is benign. LABORATORY STUDIES: This morning: Hematocrit 32.8 with a hemoglobin of 11 and a white blood cell count of 10.5 thousand. BUN and creatinine 19/1.9. ASSESSMENT: Doing well status post bilateral ureteroscopy with bilateral stone removal and bilateral stent placement. PLAN: Remove his Pedraza catheter this morning and discharge him home once he has urinated. I have spoken with his primary care physician who is in agreement. We will make arrangements for the patient to come to the office in 7-10 days for stent removal. I have also asked her to leave a prescription for some antibiotics and pain medicine for him as needed.
[2019-02-01] MEDS: amLODIPine 10 MG TAB PO SCH (09:00)
[2019-02-01] MEDS ORDERED: RAMIPRIL 5 MG CAP PO SCH (09:00)
--- NOTE | 2019-02-01 09:27 | RO ---
DATE OF PROCEDURE: 01/31/2019 PREPROCEDURE DIAGNOSIS: Bilateral ureteral calculi. POSTPROCEDURE DIAGNOSIS: Bilateral ureteral calculi. PROCEDURE: Cystoscopy, bilateral ureteroscopy, lithotripsy with basketing of left ureteral calculi with JJ stent placement, basketing of right ureteral calculi. SURGEON: Dr. Jason Valenzuela. 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 DESCRIPTION OF PROCEDURE: Patient was brought to the operating room and placed on the operating room table in the supine position. After induction of adequate anesthesia, the patient was placed in the dorsal lithotomy position. His lower abdomen and genitalia were prepped and draped in the usual sterile manner. All appropriate pressure points were padded. Cystopanendoscopy was performed using the rigid 21-Azeri cystoscope sheath with 30 and 70 degree lenses. The patient's prostate was noted to be roughly 4 cm in length and completely occlusive with trilobar hypertrophy. There was a moderate amount of median lobe tissue that was rather congested at the bladder neck. The bladder itself was 1-2+ trabeculated. There was no evidence of any cellular or diverticular formation. No stones, clots or tumors were noted within the bladder. The ureteral orifices were normal in location and configuration with clear efflux of urine from both. There did appear to be some ooze from the prostate during the course of the cystoscopy making visualization a little more difficult. A .038 wire was passed up the left orifice to the level of the renal pelvis without any difficulty. The ureteral orifice appeared somewhat snug and therefore a balloon was passed over the wire and the intrarenal ureter dilated. The rigid ureteroscope was then passed along side the wire where a smooth left ureteral calculus was identified. It did appear to be larger than originally described on a CT scan. Laser fiber was deployed and the stone adequately fragmented. For the number of shocks administered, please consult the laser log. Once the stone was fragmented into a number of pieces, a few of the larger fragments started to migrate proximally and decision was made to deploy the basket to remove the larger fragments. This was carried out with ease. Once there were no significant remaining fragments in the ureter, the ureteroscope was removed under direct vision and a 6-Azeri Adams stent passed over the wire into the renal pelvis without any difficulty. Attention was then directed to the right side where a wire was passed up the right orifice to the level of the renal pelvis. After balloon dilatation of the intrarenal ureter, the rigid ureteroscope was then again passed along side the wire where a few smaller stones were encountered, none of which was large enough to require laser lithotripsy. Therefore the basket was again deployed and both of the stones engaged in the basket. On removing the basket, the stones fell out and were left loose in the bladder clearly small enough to pass. A 6-Azeri Adams stent was then passed over the wire into the renal pelvis again. The bladder was decompressed with the cystoscope sheath and the procedure terminated. The patient tolerated the procedure well and was transported in stable condition to recovery.
[2019-02-01 10:00] VITALS: BP 139/71
--- NOTE | 2019-02-01 11:02 | REP ---
RENAL AND BLADDER ULTRASOUND: Real-time sonographic evaluation of the kidneys performed. The kidneys are normal in size and echotexture, right kidney measuring 14.1 x 6.3 x 5.1 cm and left kidneys 14.0 x 6.7 x 7.2 cm. There is mild bilateral hydronephrosis. Renal stent is seen in each renal pelvis. Urinary bladder measures 7.7 x 6.4 x 5.4 cm. Bilateral ureteral stents are seen in. There is ill-defined soft tissue in the bladder probably representing clot, measuring 4.2 x 3.4 x 2.7 cm. Prostate is enlarged measuring 5.2 x 4.7 x 5.4 cm for a total volume of 69 mL. IMPRESSION: Mild bilateral hydronephrosis. Bilateral renal stents noted. Soft tissue structure in the bladder probably represent clot 4.2 x 3.4 x 2.7 cm. Electronically Signed by Alton Nogueira MD 02/01/2019 04:33 P
[2019-02-01 11:20] LABS: CALCIUM LEVEL 7.8 MG/DL (8.8-10.2); CREATININE FOR GFR 2.07 MG/DL (0.70-1.30); GLOMERULAR FILTRATION RATE 34.3 (>49)
[2019-02-01] MEDS: MORPHINE 30 MG TAB **MSIR PO PRN ×2 (12:27→16:08)
[2019-02-01] MEDS ORDERED: DEXTROSE 50% 50 ML SYRINGE IV PRN (12:30)
[2019-02-01] MEDS ORDERED: GLUCOSE 4 GM CHEW TABLET PO PRN (12:30)
[2019-02-01] MEDS ORDERED: PILL CRUSHER/CUTTER 1 EACH XX PRN (12:30)
[2019-02-01] MEDS ORDERED: GLUCAGON FOR INJ 1 MG VIAL (J1610) SC PRN (12:30)
[2019-02-01] MEDS: DOCUSATE SODIUM 100 MG CAP PO SCH ×2 (12:54→20:30)
[2019-02-01] MEDS: ACETAMINOPHEN 500 MG TAB PO PRN ×2 (14:43→22:45)
--- NOTE | 2019-02-01 18:18 | IPN ---
DATE OF SERVICE: 02/01/2019 The patient had his Pedraza catheter removed earlier in the day. His medical attending chose not to discharge him because his creatinine had bumped a little bit and did not respond to fluids. He had a CT scan performed as well which revealed some clot in his bladder. He has been having some difficulty urinating today. Urinating in small amounts frequently which in all likelihood is due to his recent manipulation. However a Pedraza catheter was placed at my request with the patient having roughly 200 mL of dark urine which the color of some old blood as well as Pyridium. He received some relief of his discomfort but he is still having some suprapubic discomfort once again. Confirming the likelihood that it is from the previous manipulation. However we will go ahead and leave the catheter in overnight and remove it in the morning and if he is unable to urinate we will consider taking him to the operating room tomorrow for a evacuation of clot. I will start him on an alpha micheline again tonight to give him the best chance of urinating without the need for procedure.
[2019-02-01 18:30] LABS: CREATININE FOR GFR 2.38 MG/DL (0.70-1.30); GLOMERULAR FILTRATION RATE 29.2 (>49)
[2019-02-01] MEDS ORDERED: BELLADONNA ALKALOIDS/OPIUM SUPP PR ONE (20:00)
[2019-02-01 20:18] LABS: CALCIUM LEVEL 7.8 MG/DL (8.8-10.2); POTASSIUM SERUM 4.1 MEQ/L (3.5-5.1)
[2019-02-01] MEDS: TAMSULOSIN 0.4 MG CAP PO SCH (20:30)
[2019-02-01] MEDS: CIPROFLOXACIN 200 MG in APPROPRIATE DILUENT 1 EA IV SCH (20:34)
[2019-02-01 22:00] VITALS: BP 133/67
[2019-02-02] VITALS (8 sets, daily range): BP systolic 137–174; BP diastolic 65–88
[2019-02-02] MEDS ORDERED: traMADol 50 MG TAB PO ONE (03:30)
[2019-02-02] MEDS ORDERED: SENNA 8.6 MG TAB (SENOKOT) PO PRN (03:30)
[2019-02-02] MEDS: PHENAZOPYRIDINE 100 MG TAB PO SCH ×3 (06:16→22:16)
[2019-02-02 06:58] LABS: HEMATOCRIT 33.6 % (42.0-52.0); HEMOGLOBIN 11.4 g/dl (13.5-17.5); MEAN CORPUSCULAR HEMOGLOBIN 30.6 pg (27.0-33.0); MEAN CORPUSCULAR HGB CONC 33.9 g/dl (32.0-36.5); MEAN CORPUSCULAR VOLUME 90.3 fl (80.0-96.0); PLATELET COUNT, AUTOMATED 214 10^3/uL (150-450); RED BLOOD COUNT 3.72 10^6/uL (4.30-6.10); WHITE BLOOD COUNT 11.4 10^3/uL (4.0-10.0)
--- NOTE | 2019-02-02 07:14 | IPNPDOC ---
Date Seen The patient was seen on 02/02/19. Progress Note SUBJECTIVE: Discharge postponed due to worsening creatinine to 2.38 despite 2liters ivfluid hydration. repeat us: bladder clots. urine output overnight 1.1 liters. mp still pending this am. npo for possible cystoscopy and clot retrieval. on ivfluids. no c/o sob. c/o right flank pain and persistent hematuria with small clots after irrigation this morning. PHYSICAL EXAMINATION: VITALS: PLS SEE BELOW GENERAL: sitting in bed no pallor no respiratory distress HEENT EXAM: Mucous membranes are moist. Extraocular movements are intact. He has good dentition. Thyroid is not enlarged. LUNGS: Clear to auscultation bilaterally without any adventitious breath sounds appreciated. CARDIOVASCULAR: Regular rate and rhythm. No murmurs, rubs or gallops. Normal S1 and normal S2. ABDOMEN: right cva tenderness Soft and nontender. Positive bowel sounds. No organomegaly and no masses. EXTREMITIES: No clubbing, cyanosis, or edema. MUSCULOSKELETAL: He has 5/5 strength in his upper and lower extremities. NEURO: Cranial nerves II through XII are intact without any focal deficit. He is awake, alert and oriented times three with a normal mood and a normal affect. LABS: reviewed. pls see below His urine was significant for 3+ glucose, 3+ blood, 7 white blood cells, and 82 red blood cells. IMAGING: He underwent an abdomen and pelvis CT with the findings of: 1. 5 mm calculus in the left distal ureter just proximal to the left ureterovesical junction that had migrated distally from the left proximal ureter since the prior CT scan on January 29, 2019 and there is mild to moderate left hydroureteronephrosis. 2. 4 mm calculus on the right distal ureter just proximal to the ureterovesical junction that has migrated distally from the right distal ureter since the prior CT scan on January 29, 2019 and there is mild right hydroureteronephrosis. 3. Small fat containing direct right inguinal hernia that also contains a portion of the right anterior aspect of the urinary bladder which is similar in appearance compared the prior CT scan on 01/29/2019. 4. Enlarged prostate gland. ASSESSMENT/PLAN: The patient is a 68-year-old male with past medical history of hypertension and prediabetes who presented first to the [facility] emergency room on January 28, 2019 with abdominal pain and back pain for two days, and that was similar to the pain he felt when he previously had a kidney stone. He states that the pain at its worst was a 9 out of 10. When he was in the ER last, he was given hydrocodone and told to follow-up with his primary care physician. He was also found to [place] ve a kidney stone that was 4 mm in the right ureteropelvic junction. This morning, he states that he feels worse than he did on Wednesday, his pain is 9 out of 10, he is unable to be comfortable and he has a constant pain in his back and bloating in his stomach. The hydrocodone did not help his pain nor did the ibuprofen that he was given by the emergency room so he came back. In the emergency room, he underwent a CT scan and was found to have a 5 mm calculus in the left distal ureter that had moved distally from the left proximal ureter and a 4 mm calculus on the right distal ureter, so the hospitalist service was called for admission. He is a nonsmoker. Does not drink alcohol. 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 PLAN: OBSTRUCTIVE UROPATHY. with bilateral Ureteral stones. on IV fluids in medical/surgical floor. s/p laser lithotripsy and stents, but with clots in the bladder post procedure with worsening creatinine 2.38 . npo for possible cystoscopy and clot retrieval. s/p bladder irrigation . on iv cipro renally dosed. cxr to rule out fluid overload s/p 4liters ivfluids in the past 24 hrs. acute blood loss anemia due to gross hematuria H&H stable asx. no acute indication for rbc transfusion Prediabetes. The patient will be placed on sliding scale insulin at this time. off metformin due to renal failure due to risk of lactic acidosis. hyoglycemic protocol. Hypertension. The patient is on ramipril at home. At this time, his blood pressure is 148/68. held ramipril due to renal failure. on norvasc DVT prophylaxis: hold ASA due to persistent hematuria. ompression stockings. dispo: pending further urological procedure and creatinine improvement. VS, I&O, 24H, Fishbone Vital Signs/I&O Vital Signs Date Time Temp Pulse Resp B/P (MAP) Pulse Ox O2 Delivery O2 Flow Rate FiO2 02/02/19 06:00 100.3 89 18 174/79 (110) 93 2.0 01/31/19 04:44 Room Air I&O- Last 24 Hours up to 6 AM 02/02/19 06:00 Intake Total 2140 ml Output Total 2548 ml Balance -408 ml Laboratory Data 24H LABS Laboratory Tests 2 02/01/19 10:42: Anion Gap 4L, Glomerular Filtration Rate 34.3L, Blood Urea Nitrogen 20H, Crea tinine 2.07H, Sodium Level 138, Potassium Level 4.0, Chloride Level 107, Carbon Dioxide Level 27, Calcium Level 7.8L 02/01/19 12:09: Bedside Glucose (Misc Panel) 173H 02/01/19 16:56: Bedside Glucose (Misc Panel) 167H 02/01/19 17:57: Anion Gap 8, Glomerular Filtration Rate 29.2L, Blood Urea Nitrogen 23H, Creatinine 2.38H, Sodium Level 138, Potassium Level 4.1, Chloride Level 106, Carbon Dioxide Level 24, Calcium Level 7.8L 02/01/19 20:26: Bedside Glucose (Misc Panel) 196H 02/02/19 06:46: Nucleated Red Blood Cells % (auto) 0.0 CBC/BMP Laboratory Tests 02/01/19 10:42 Calcium Level 7.8 L 02/01/19 17:57 Calcium Level 7.8 L 02/02/19 06:46 Red Blood Count 3.72 L, Mean Corpuscular Volume 90.3, Mean Corpuscular Hemoglobin 30.6, Mean Corpuscular Hemoglobin Concent 33.9, Red Cell Distribution Width 12.1 BHUPINDER SAUNDERS MD Feb 02, 2019 07:14
[2019-02-02] MEDS ORDERED: MORPHINE 4 MG/ML 1ML VIAL/SYRINGE (J2270) IV ONE ×2 (07:15→15:15)
[2019-02-02] MEDS ORDERED: NS 1,000 ML IV ONE (07:15)
[2019-02-02 07:24] LABS: CALCIUM LEVEL 8.1 MG/DL (8.8-10.2); CREATININE FOR GFR 2.68 MG/DL (0.70-1.30); GLOMERULAR FILTRATION RATE 25.4 (>49); POTASSIUM SERUM 4.1 MEQ/L (3.5-5.1)
[2019-02-02] MEDS ORDERED: BISACODYL 10 MG SUPP PR ONE ×2 (08:00→15:30)
[2019-02-02] MEDS: CIPROFLOXACIN 200 MG in APPROPRIATE DILUENT 1 EA IV SCH ×2 (08:10→22:16)
[2019-02-02] MEDS: ATORVASTATIN 20 MG TAB PO SCH (08:10)
[2019-02-02] MEDS: DOCUSATE SODIUM 100 MG CAP PO SCH (08:10)
[2019-02-02] MEDS: amLODIPine 10 MG TAB PO SCH (08:11)
[2019-02-02] MEDS: HumaLOG INSULIN (NovoLOG) PER UNIT SC SCH ×4 (08:13→21:00)
--- NOTE | 2019-02-02 08:48 | REP ---
Portable chest x-ray: Single view. History: Status post IV fluids, rule out CHF. Shortness of breath. No comparison study. Findings: The lungs are symmetrically aerated and free of infiltrate. There is no evidence of pleural effusion. Heart is not felt to be enlarged. There are a few Magalie B lines in the bases bilaterally. Pulmonary vasculature is not felt to be increased. The aorta is slightly tortuous. No infiltrate is seen. Impression: Slightly prominent interstitial markings in the bases versus Magalie B lines. No evidence of pleural effusion or focal infiltrate. Electronically Signed by Ceho Velasquez MD 02/02/2019 08:39 A
[2019-02-02] MEDS ORDERED: NS 1,000 ML IV SCH (12:30)
[2019-02-02] MEDS: FLEET ENEMA PR PRN (12:52)
[2019-02-02] MEDS ORDERED: MOM 30ML SUSPENSION UDC PO PRN (13:45)
[2019-02-02] MEDS ORDERED: MOM 30ML SUSPENSION UDC PO ONE (13:45)
[2019-02-02] MEDS: SENOKOT S TAB PO SCH ×2 (14:09→20:35)
--- NOTE | 2019-02-02 14:24 | REP ---
Clinical: Abdominal distension. Technique: Two supine views of the abdomen and pelvis. Findings: Moderately dilated loops of small and large bowel are appreciated along with moderate fecal stasis through the cecum to the hepatic flexure. Findings are nonspecific and differential diagnosis may include enterocolitis as well as early partial obstruction. Bilateral ureteral stents are identified. The right ureteral stent appears to be in satisfactory position. The left ureteral stent terminates in the distal ureter and does not extend into the bladder. Impression: 1. Moderate distension of small large bowel is nonspecific. Mild/moderate fecal stasis of the ascending colon is suggested. 2. The left ureteral stent is retracted and its distal tip terminates in the distal ureter and not within the bladder. A right ureteral stent in satisfactory position. Electronically Signed by Darnell Jackson MD 02/02/2019 02:16 P
[2019-02-02 15:11] LABS: CALCIUM LEVEL 8.2 MG/DL (8.8-10.2); CREATININE FOR GFR 3.33 MG/DL (0.70-1.30); GLOMERULAR FILTRATION RATE 19.8 (>49)
[2019-02-02] MEDS: MORPHINE 30 MG TAB **MSIR PO PRN (15:11)
[2019-02-02] MEDS: ONDANSETRON 4MG/2ML VIAL (J2405) IV PRN (15:11)
[2019-02-02] MEDS: metroNIDAZOLE 500 MG in APPROPRIATE DILUENT 1 EA IV SCH ×2 (15:13→23:24)
[2019-02-02] MEDS ORDERED: MORPHINE 4 MG/ML 1ML VIAL/SYRINGE (J2270) IV PRN (15:15)
[2019-02-02] MEDS ORDERED: MIDAZOLAM INJ 2 MG/2 ML VIAL (J2250) As Ordered ONE (16:17)
[2019-02-02] MEDS ORDERED: LIDOCAINE 2% INJ 100 MG/5 ML SDV (FOR ANES.) As Ordered ONE (16:17)
[2019-02-02] MEDS ORDERED: ONDANSETRON 4MG/2ML VIAL (J2405) As Ordered ONE (16:17)
[2019-02-02] MEDS ORDERED: PROPOFOL 200 MG/20 ML VIAL As Ordered ONE (16:17)
[2019-02-02] MEDS ORDERED: fentaNYL 100 MCG/2 ML INJECTION (J3010) As Ordered ONE (16:17)
[2019-02-02] MEDS ORDERED: dexameTHASONE 4 MG/ML 1ML VIAL (J1100) As Ordered ONE (16:17)
[2019-02-02] MEDS ORDERED: NEOSTIGMINE 10 MG/10 ML VIAL (J2710) As Ordered ONE (16:48)
[2019-02-02] MEDS ORDERED: GLYCOPYRROLATE INJ 0.2 MG/ML 2 ML VIAL As Ordered ONE (16:48)
[2019-02-02] MEDS ORDERED: SUCCINYLCHOLINE 100 MG/5 ML SYRINGE (J0330) As Ordered ONE (16:48)
[2019-02-02] MEDS ORDERED: ROCURONIUM BROMIDE 50 MG/5 ML VIAL As Ordered ONE (16:48)
[2019-02-02] MEDS ORDERED: ePHEDrine SULFATE 25 MG/5 ML(5MG/ML) SYRINGE As Ordered ONE (17:31)
[2019-02-02] MEDS ORDERED: METOCLOPRAMIDE INJ 10MG/2ML VIAL (J2765) IV PRN (18:45)
[2019-02-02] MEDS ORDERED: ONDANSETRON 4MG/2ML VIAL (J2405) IV PRN (18:45)
[2019-02-02] MEDS ORDERED: fentaNYL 100 MCG/2 ML INJECTION (J3010) IV PRN (18:45)
[2019-02-02] MEDS ORDERED: PERCOCET 5MG/325MG TAB PO PRN (18:45)
[2019-02-02] MEDS ORDERED: LR 1,000 ML IV SCH (18:45)
[2019-02-02 20:21] LABS: CREATININE FOR GFR 3.24 MG/DL (0.70-1.30); GLOMERULAR FILTRATION RATE 20.4 (>49); POTASSIUM SERUM 4.3 MEQ/L (3.5-5.1)
[2019-02-02] MEDS: NS 1,000 ML IV SCH (20:35)
[2019-02-02] MEDS: TAMSULOSIN 0.4 MG CAP PO SCH (20:35)
[2019-02-02] MEDS: BISACODYL 10 MG SUPP PR SCH (20:35)
[2019-02-03 00:36] LABS: CALCIUM LEVEL 7.9 MG/DL (8.8-10.2); GLOMERULAR FILTRATION RATE 22.3 (>49); POTASSIUM SERUM 4.7 MEQ/L (3.5-5.1)
[2019-02-03 02:00] VITALS: BP 139/69
[2019-02-03] MEDS: NS 1,000 ML IV SCH ×2 (05:14→15:10)
[2019-02-03] MEDS: PHENAZOPYRIDINE 100 MG TAB PO SCH ×3 (05:19→20:59)
[2019-02-03] MEDS: metroNIDAZOLE 500 MG in APPROPRIATE DILUENT 1 EA IV SCH ×3 (06:36→22:13)
[2019-02-03 06:43] LABS: HEMOGLOBIN 10.4 g/dl (13.5-17.5); MEAN CORPUSCULAR HEMOGLOBIN 30.4 pg (27.0-33.0); MEAN CORPUSCULAR HGB CONC 33.5 g/dl (32.0-36.5); MEAN CORPUSCULAR VOLUME 90.6 fl (80.0-96.0); PLATELET COUNT, AUTOMATED 204 10^3/uL (150-450); RED BLOOD COUNT 3.42 10^6/uL (4.30-6.10); WHITE BLOOD COUNT 8.5 10^3/uL (4.0-10.0)
[2019-02-03 07:01] LABS: CALCIUM LEVEL 8.1 MG/DL (8.8-10.2); CREATININE FOR GFR 2.81 MG/DL (0.70-1.30); GLOMERULAR FILTRATION RATE 24.1 (>49); POTASSIUM SERUM 4.5 MEQ/L (3.5-5.1)
[2019-02-03] MEDS ORDERED: FLEET OIL RETENTION ENEMA PR ONE (07:30)
[2019-02-03] MEDS ORDERED: LACTULOSE 20 GM/30 ML SYRUP UD PO ONE (07:30)
--- NOTE | 2019-02-03 08:04 | CR ---
DATE OF CONSULTATION: 02/03/2019 Mr. Deshpande is postoperative from cystoscopy with evacuation of clot last night. He is doing quite well this morning. He is very comfortable. His abdomen is soft although somewhat protuberant as he still has not had a bowel movement. His Pedraza catheter is draining clear Pyridium stained urine and he is quite comfortable with it in. Most importantly his creatinine has finally started to come down. It was 3.0 at midnight and 2.8 this morning at 6:20 from a high of 3.3 yesterday. His hemoglobin and hematocrit have been stable and his white count has normalized to 8.5 thousand. ASSESSMENT: Renal function slowly improving in a 68-year-old man status post bilateral ureteroscopy with subsequent return to the operating room for stent manipulation and Pedraza catheter placement. PLAN: Continue to monitor his creatinine although I do not know if it necessarily needs to be done every 6 hours at this point. Will leave the catheter in one more day until we know that his renal function is continuing to head in the right direction.
[2019-02-03] MEDS: SENOKOT S TAB PO SCH ×2 (08:09→20:59)
[2019-02-03] MEDS: BISACODYL 10 MG SUPP PR SCH ×2 (08:09→22:02)
[2019-02-03] MEDS: ATORVASTATIN 20 MG TAB PO SCH (08:09)
[2019-02-03] MEDS: CIPROFLOXACIN 200 MG in APPROPRIATE DILUENT 1 EA IV SCH ×2 (08:10→20:59)
[2019-02-03] MEDS: HumaLOG INSULIN (NovoLOG) PER UNIT SC SCH ×4 (08:11→21:00)
--- NOTE | 2019-02-03 08:20 | RO ---
DATE OF PROCEDURE: 02/02/2019 PREOPERATIVE DIAGNOSES: 1. Persistent gross hematuria with reported clot in the bladder. 2. Worsening renal failure. POSTOPERATIVE DIAGNOSES: 1. Persistent gross hematuria with reported clot in the bladder. 2. Worsening renal failure. 3. No evidence of any bleeding. PROCEDURE PERFORMED: Cystoscopy, removal with replacement of right ureteral stent, and evacuation of clot. SURGEON: Jason Valenzuela MD DEPUTY REGISTER OF DEEDS: ANESTHESIA: General via laryngeal mask airway (LMA). PROCEDURE: The patient was brought to the operating room, placed on the operating room table in the supine position. After induction of adequate anesthesia, the patient was placed in the dorsal lithotomy position. His lower abdomen and genitalia were prepped and draped in the usual sterile manner. Cystopanendoscopy was performed using the rigid 21 Turkmen cystoscope sheath with 30-70 degree lenses. There was a small amount of clot on the floor of the bladder, which was of great concern to the patient's medical doctor as a possible source of his worsening renal function. Therefore, the [employer] evacuator was used to remove what clot did remain in the bladder. There was no evidence of any active bleeding. The left orifice appeared somewhat edematous and the previously placed left ureteral stent apparently had migrated proximally and could not be seen at the orifice. There did appear to be a tiny amount of string from the ureteral stent, but this could not be grasped successfully to pull the stent down into the bladder. The right ureteral stent seemed to be coming out of the orifice a little more than I was comfortable with, with the string that had been left on, actually having been reported to be almost at the urethral meatus. A decision was made therefore to remove the stent and replace it. The stent was removed, a 0.03 wire passed back up the right orifice and a 6 Turkmen universal stent placed without any difficulty. Attention was redirected to the left orifice where multiple attempts at passing a wire up the orifice to gain access to the left ureter were unsuccessful. An attempt at ureteroscoping the orifice directly without the safety wire was also unsuccessful due to the edema and little bit of ooze that had been generated. Given that this was clearly not the source of the patient's renal failure, a decision was made instead to simply abort the procedure. An [address] Turkmen [address] Pedraza catheter was passed into the bladder to facilitate irrigation should the need arise, though there was no active bleeding at the time. The catheter was hand irrigated without any difficulty with return of clear effluent. Continuous bladder irrigation was attached in the operating room and the catheter then attached to sterile drainage. The patient tolerated the procedure well and was transported in stable condition to recovery.
--- NOTE | 2019-02-03 08:43 | CR ---
DATE OF CONSULTATION: 02/02/2019 CONSULTATION FOR: Tanya Wu MD REASON FOR CONSULTATION: Acute renal failure and this gentleman with bilateral ureteral stones. HISTORY OF PRESENT ILLNESS: Mr. Deshpande is a 68-year-old gentleman with known history of prediabetes, hypertension and a prior history of kidney stones a couple of years ago. The patient presented to the emergency room at [facility] on January 28 with abdominal and flank pain. At that time he was found to have a 4 mm stone in his right ureter with mild hydronephrosis. He was sent to home with pain medication anticipating that he will pass the stone. He presented back on January 31 with worsening bilateral pain and now he was found to have a 5 mm stone in his left ureter which had moved further distal and right ureter stone was still in the distal ureter. The patient was admitted due to bilateral hydroureteronephrosis and acute renal failure. On February 01 he underwent ureteroscopy with stone removal and bilateral stent placement. The patient had acute renal failure with creatinine above 3.0. His kidney function did not improve despite IV fluid hydration and bilateral ureteral stents due to which a renal consult was requested. The patient did go back to operating room (OR) on the day of this consultation for evacuation of a bladder clot. I have seen him in the evening of February 02. He is feeling much better now and his pain has improved significantly. He still feels bloated but denies any nausea or vomiting. PAST MEDICAL AND SURGICAL HISTORY: Significant for: 1. History of hypertension. 2. History of kidney stones. 3. History of prediabetes. 4. Hyperlipidemia. PAST SURGICAL HISTORY: SIGNIFICANT FOR: Tonsillectomy, diskectomy. ALLERGIES: He has no known drug allergies. MEDICATIONS: His home medications included: [place] 5/325 mg every 6 hours as needed pain, amlodipine 10 mg daily, atorvastatin 40 mg daily, Januvia 100 mg daily and Flomax 0.4 mg daily. PERSONAL AND SOCIAL HISTORY: The patient does not smoke or drink. 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 FAMILY HISTORY: Is negative for kidney disease or stones. REVIEW OF SYSTEMS: The patient denies any fever or chills. He came back from the operating room this evening and his pain is much better now. Ears, nose and throat are unremarkable. Cardiovascular system is significant for hypertension. There is no history of coronary artery disease. There is no dyspnea or chest pain. Respiratory system negative for cough or hemoptysis. GI system is significant for abdominal bloating and poor appetite. He is also constipated. Denies any vomiting. REVIEW OF SYSTEMS: Is significant for bilateral kidney stones with bilateral ureterohydronephrosis. He underwent bilateral ureteroscopy with removal of stones and stent placement on the . Today he had repositioning of stent and removal of a blood clot from his bladder. Endocrine system is significant for type 2 diabetes. There is no history of thyroid problems. Hematological system is negative for anticoagulation. There is no history of easy bruising or excessive bleeding. Psychosocial system negative for depression or anxiety. Musculoskeletal system is negative for any arthritis or leg edema. Skin is negative for rash or ulcers. PHYSICAL EXAMINATION: Patient is lying in the bed without any acute distress. He is using oxygen via nasal cannula. Temperature is 97.8 degrees Fahrenheit, heart rate about 100 per minute and respiratory rate 20 per minute. Blood pressure 153/86 mmHg and oxygen saturation 94% on 2 liters oxygen. His head is atraumatic. Ears, nose and throat are unremarkable. Neck is supple and without jugular venous distention (JVD) or thyroid enlargement. Heart sounds are tachycardiac but regular. Lungs have no rales or wheezing. Abdomen is somewhat protuberant and nontender. Bowel sounds are present. Extremities have no cyanosis or clubbing. Skin has no rash or ulcers. Neurologically he is awake, alert and oriented times three. LABORATORY DATA: His admission labs showed a BUN of 23 and creatinine 2.06. On January 31 BUN was 22 and creatinine down to 1.5. In the afternoon of February 02, BUN 25 and creatinine 3.33. A repeat one is BUN 27 and creatinine 3.24. Sodium is 139 and potassium 4.3. CO2 is 18 and calcium 8.0. Lactic acid level 1.0. WBC count 11.4, hemoglobin 11.4 and hematocrit 33.6. He had a CAT scan of abdomen and pelvis done on day of admission January 31, 4 mm stone in distal right ureter and a 5 mm stone distal left ureter. There are bilateral ureterohydronephrosis and a small right inguinal hernia was also noted on CAT scan. PROBLEMS: 1. Acute renal failure related to bilateral ureteral obstruction caused by bilateral ureteral stones. The patient already had ureteral stents placed after removal of stones on February 01, however kidney function has not improved as yet. He is already receiving IV fluid. I would recommend to continue with the IV fluid. His stents have been replaced and repositioned today and hematoma was evacuated from his bladder. He is still getting bladder irrigation and we anticipate improvement in his kidney function. He probably had either partial or complete obstruction of one or both stents. Renal profile will be checked again tomorrow morning. His electrolytes are stable at this time and there is no evidence of metabolic acidosis. There is no emergent indication for dialysis. 2. Recurrent kidney stones. The patient has prior history of kidney stone about 2 years ago and now he has bilateral kidney stones. He should have metabolic workup done as an outpatient in a few weeks. 3. Hypertension. Blood pressure is reasonably well-controlled and his chronic antihypertensive meds are appropriate. 4. Diabetes. He was on Januvia at home and is currently getting insulin per sliding scale as he is not eating and many times he is nothing by mouth for procedures. He can resume his Januvia once he is ready for discharge. Thank you for involving me in the care of Mr. Deshpande. I will follow him along with you.
[2019-02-03] MEDS ORDERED: SENOKOT S TAB PO SCH (09:00)
[2019-02-03] MEDS: amLODIPine 10 MG TAB PO SCH (09:00)
[2019-02-03 10:00] VITALS: BP 175/83
[2019-02-03] MEDS ORDERED: CIPR-250 PO (11:37)
[2019-02-03] MEDS ORDERED: BACITAB PO (11:37)
[2019-02-03] MEDS ORDERED: SENO8.6T10 PO (11:38)
[2019-02-03] MEDS ORDERED: MIRA3350 PO (11:39)
[2019-02-03] MEDS ORDERED: amLODIPine 10 MG TAB PO ONE (11:45)
--- NOTE | 2019-02-03 13:05 | IPNPDOC ---
Date Seen The patient was seen on 02/03/19. Progress Note SUBJECTIVE: Creatinine improved after stent repositioned and bladder clot evacuation. still c/o abd distention with abd xray: early obstruction vs inflammatory. on cipro and flagyl no nausea or vomiting. right flank pain resolved no abd pain. tolerating his diet. adequate urine output. c/o constipation despite bowel regiemnt. PHYSICAL EXAMINATION: VITALS: PLS SEE BELOW GENERAL: sitting in bed no pallor no respiratory distress HEENT EXAM: Mucous membranes are moist. Extraocular movements are intact. He has good dentition. Thyroid is not enlarged. LUNGS: Clear to auscultation bilaterally without any adventitious breath sounds appreciated. CARDIOVASCULAR: Regular rate and rhythm. No murmurs, rubs or gallops. Normal S1 and normal S2. ABDOMEN: right cva tenderness Soft and nontender. Positive bowel sounds. No organomegaly and no masses. EXTREMITIES: No clubbing, cyanosis, or edema. MUSCULOSKELETAL: He has 5/5 strength in his upper and lower extremities. NEURO: Cranial nerves II through XII are intact without any focal deficit. He is awake, alert and oriented times three with a normal mood and a normal affect. LABS: reviewed. pls see below His urine was significant for 3+ glucose, 3+ blood, 7 white blood cells, and 82 red blood cells. IMAGING: He underwent an abdomen and pelvis CT with the findings of: 1. 5 mm calculus in the left distal ureter just proximal to the left ureterovesical junction that had migrated distally from the left proximal ureter since the prior CT scan on January 29, 2019 and there is mild to moderate left hydroureteronephrosis. 2. 4 mm calculus on the right distal ureter just proximal to the ureterovesical junction that has migrated distally from the right distal ureter since the prior CT scan on January 29, 2019 and there is mild right hydroureteronephrosis. 3. Small fat containing direct right inguinal hernia that also contains a portion of the right anterior aspect of the urinary bladder which is similar in appearance compared the prior CT scan on 01/29/2019. 4. Enlarged prostate gland. ASSESSMENT/PLAN: The patient is a 68-year-old male with past medical history of hypertension and prediabetes who presented first to the [facility] emergency room on January 28, 2019 with abdominal pain and back pain for two days, and that was similar to the pain he felt when he previously had a kidney stone. He states that the pain at its worst was a 9 out of 10. When he was in the ER last, he was given hydrocodone and told to follow-up with his primary care physician. He was also found to have a kidney stone that was 4 mm in the right ureteropelvic junction. This morning, he states that he feels worse than he did on Wednesday, his pain is 9 out of 10, he is unable to be comfortable and he has a constant pain in his back and bloating in his stomach. The hydrocodone did not help his pain nor did the ibuprofen that he was given by the emergency room so he came back. In the emergency room, he underwent a CT scan and was found to have a 5 mm calculus in the left distal ureter that had moved distally from the left proximal ureter and a 4 mm calculus on the right distal ureter, so the hospitalist service was called for admission. He is a nonsmoker. Does not drink alcohol. 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 PLAN: OBSTRUCTIVE UROPATHY. with bilateral Ureteral stones. on IV fluids in medical/surgical floor. s/p laser lithotripsy and stents, but with clots in the bladder post procedure with worsening creatinine which peaked to 3.3,improved today after stents were re-positioned 02/02/19. on iv cipro. urology and nephrology mgt appreciated. trial of void . dc rodarte. dc in am if stable creatinine. outpt fu w urology and nephrology Constipation opioid induced on bowel regimen acute blood loss anemia due to gross hematuria H&H stable asx. no acute indication for rbc transfusion Acute Kidney Injury due to OBSTRUCTIVE UROPATHY. with bilateral Ureteral stones. on IV fluids in medical/surgical floor. s/p laser lithotripsy and stents, but with clots in the bladder post procedure with worsening creatinine which peaked to 3.3,improved today after stents were re-positioned 02/02/19. on iv cipro. urology and nephrology mgt appreciated. trial of void . dc rodarte. dc in am if stable creatinine. outpt fu w urology and nephrology Prediabetes. The patient will be placed on sliding scale insulin at this time. off metformin due to renal failure due to risk of lactic acidosis. hyoglycemic protocol. Hypertension. The patient is on ramipril at home. At this time, his blood pressure is 148/68. held ramipril due to renal failure. on norvasc DVT prophylaxis: hold ASA due to persistent hematuria. compression stockings. disposition: sd home wednesday. VS, I&O, 24H, Fishbone Vital Signs/I&O Vital Signs Date Time Temp Pulse Resp B/P (MAP) Pulse Ox O2 Delivery O2 Flow Rate FiO2 02/03/19 11:45 90 175/83 02/03/19 10:00 98.1 16 92 02/02/19 19:50 2.0 93 01/31/19 04:44 Room Air I&O- Last 24 Hours up to 6 AM 02/03/19 06:00 Intake Total 4530 ml Output Total 300 ml Balance 4230 ml Laboratory Data 24H LABS Laboratory Tests 2 02/02/19 13:06: IA-Wlw-A-Type Natriuretic Peptide 832H 02/02/19 14:41: Anion Gap 7L, Glomerular Filtration Rate 19.8L, Blood Urea Nitrogen 25H, Creatinine 3.33H, Sodium Level 139, Potassium Level 4.0, Chloride Level 109H, Carbon Dioxide Level 23, Calcium Level 8.2L 02/02/19 14:44: Lactic Acid Level 1.0 02/02/19 19:55: Anion Gap 12, Glomerular Filtration Rate 20.4L, Blood Urea Nitrogen 27H, Creatinine 3.24H, Sodium Level 139, Potassium Level 4.3, Chloride Level 109H, Carbon Dioxide Level 18L, Calcium Level 8.0L 02/02/19 20:00: Bedside Glucose (Misc Panel) 175H 02/03/19 00:01: Anion Gap 7L, Glomerular Filtration Rate 22.3L, Blood Urea Nitrogen 28H, Creatinine 3.00H, Sodium Level 139, Potassium Level 4.7, Chloride Level 110H, Carbon Dioxide Level 22, Calcium Level 7.9L 02/03/19 06:19: Anion Gap 8, Glomerular Filtration Rate 24.1L, Blood Urea Nitrogen 28H, Crea tinine 2.81H, Sodium Level 140, Potassium Level 4.5, Chloride Level 109H, Carbon Dioxide Level 23, Calcium Level 8.1L, Nucleated Red Blood Cells % (auto) 0.0 02/03/19 11:16: Bedside Glucose (Misc Panel) 175H CBC/BMP Laboratory Tests 02/02/19 14:41 Calcium Level 8.2 L 02/02/19 19:55 Calcium Level 8.0 L 02/03/19 00:01 Calcium Level 7.9 L 02/03/19 06:19 Calcium Level 8.1 L, Red Blood Count 3.42 L, Mean Corpuscular Volume 90.6, Mean Corpuscular Hemoglobin 30.4, Mean Corpuscular Hemoglobin Concent 33.5, Red Cell Distribution Width 12.0 BHUPINDER SAUNDERS MD Feb 03, 2019 13:05
[2019-02-03 14:00] VITALS: BP 164/76
--- NOTE | 2019-02-03 17:14 | IPN ---
DATE: 02/03/2019 Mr. Deshpande is seen this morning on his bedside. He is feeling better and is sitting at the edge of the bed. He still has a Pedraza catheter which is draining dark yellow orange-colored urine. The patient denies any nausea or vomiting and reports that his abdominal bloating has improved. PHYSICAL EXAMINATION: Temperature 98.1 degrees Fahrenheit, heart rate 82 per minute and respiratory rate 16 per minute. Blood pressure 139/69 mmHg and oxygen saturation 92%. Head is atraumatic. Neck is supple and without jugular venous distention (JVD) or thyroid enlargement. Heart sounds regular. Lungs are clear to auscultation. Abdomen is soft and nontender and bowel sounds are normal. Extremities without any cyanosis or clubbing. Neurologically, he is awake, alert and oriented times three. LABORATORY DATA: Today's laboratories show WBC count 8.5, hemoglobin 10.4, hematocrit 31.0. Sodium 140, potassium 4.5, CO2 23, BUN 28 and creatinine 2.81. Glucose 201 and calcium 8.1. PROBLEMS: 1. Acute renal failure, most likely related to bilateral hydronephrosis caused by bilateral ureteral stones. The patient already had stones removed and has ureteral stents in place. Kidney function has started to improve and is likely to improve further in the next 24 hours. 2. Bilateral ureteral stones. The patient already had his stones removed and ureteral stents placed. He will be followed up as an outpatient for stone workup. 3. Anemia. His anemia is mild and stable and will not need any intervention at this point. DISPOSITION: From a renal standpoint, his Pedraza catheter can be removed today and monitor for 24 hours. He can be discharged to home tomorrow if his kidney function continues to improve. He will followup in my office in one month for metabolic workup for his recurrent kidney stones.
[2019-02-03] MEDS: MORPHINE 30 MG TAB **MSIR PO PRN (17:53)
[2019-02-03] MEDS ORDERED: MAGNESIUM CITRATE 300 ML BTL PO ONE (20:30)
[2019-02-03] MEDS: TAMSULOSIN 0.4 MG CAP PO SCH (20:59)
[2019-02-03 22:00] VITALS: BP 164/68
[2019-02-03] MEDS: ONDANSETRON 4MG/2ML VIAL (J2405) IV PRN (22:13)
[2019-02-04] MEDS ORDERED: oxyBUTYnin 5 MG TAB PO ONE (00:30)
[2019-02-04] MEDS ORDERED: hydrOXYzine 25 MG TAB PO ONE (01:45)
[2019-02-04] MEDS: FLEET ENEMA PR PRN (01:46)
[2019-02-04] MEDS: NS 1,000 ML IV SCH (01:48)
[2019-02-04] MEDS: PHENAZOPYRIDINE 100 MG TAB PO SCH ×3 (05:47→22:58)
[2019-02-04 06:52] LABS: HEMATOCRIT 30.6 % (42.0-52.0); HEMOGLOBIN 10.2 g/dl (13.5-17.5); MEAN CORPUSCULAR HEMOGLOBIN 30.3 pg (27.0-33.0); MEAN CORPUSCULAR HGB CONC 33.3 g/dl (32.0-36.5); MEAN CORPUSCULAR VOLUME 90.8 fl (80.0-96.0); PLATELET COUNT, AUTOMATED 255 10^3/uL (150-450); RED BLOOD COUNT 3.37 10^6/uL (4.30-6.10); WHITE BLOOD COUNT 9.7 10^3/uL (4.0-10.0)
[2019-02-04] MEDS: metroNIDAZOLE 500 MG in APPROPRIATE DILUENT 1 EA IV SCH ×3 (07:02→22:58)
[2019-02-04 07:15] LABS: CALCIUM LEVEL 8.6 MG/DL (8.8-10.2); CREATININE FOR GFR 3.11 MG/DL (0.70-1.30); GLOMERULAR FILTRATION RATE 21.4 (>49); POTASSIUM SERUM 4.2 MEQ/L (3.5-5.1)
[2019-02-04] MEDS ORDERED: FLEET OIL RETENTION ENEMA PR PRN (07:30)
[2019-02-04] MEDS ORDERED: NS 1,000 ML IV SCH (07:37)
[2019-02-04] MEDS ORDERED: diphenhydrAMINE INJ 50MG/ML VIAL (J1200) IV PRN (07:45)
[2019-02-04] MEDS ORDERED: NALBUPHINE HCL 10 MG/ML AMP (J2300) IV PRN (07:45)
[2019-02-04] MEDS ORDERED: NALOXONE INJ 0.4 MG/1 ML VIAL (J2310) IV PRN (07:45)
[2019-02-04] MEDS ORDERED: MORPHINE 1MG/ML IN 0.9% NACL 100ML IV BAG IV PRN (07:45)
[2019-02-04] MEDS ORDERED: ONDANSETRON 4MG/2ML VIAL (J2405) IV PRN (07:45)
[2019-02-04] MEDS ORDERED: EPIDURAL/PCA KEYS XX PRN (07:45)
[2019-02-04] MEDS ORDERED: FLEET OIL RETENTION ENEMA PR ONE (08:00)
[2019-02-04] MEDS ORDERED: GOLYTELY SOLN 4000 ML BTL PO ONE (08:00)
[2019-02-04 08:25] VITALS: BP 160/80
--- NOTE | 2019-02-04 08:51 | REP ---
Clinical: Abdominal pain and distension. Technique: Axial noncontrast images from the lung bases to the pubic symphysis with coronal and sagittal re-formations. Comparison: 01/31/2019. Findings: Mild bibasilar atelectasis (right greater than left). Liver, spleen, pancreas, distended gallbladder, and bilateral adrenal glands are relatively normal for noncontrast evaluation. The evaluation of the urinary tract system demonstrates a right ureteral stent in satisfactory position with mild perinephric stranding and improving hydronephrosis with the previously noted distal right ureteral calculus removed. The left kidney demonstrates a ureteral stent extending from the left renal pelvis with the distal coil terminating in the distal ureter approximately 5.5 cm above the ureterovesicle junction. Residual moderate left hydroureteronephrosis is appreciated but the previously noted left ureteral calculus has been removed. The enteric system demonstrates a nonspecific pattern without obstruction which may reflect an early ileus. Normal terminal ileum and appendix are identified in the right lower quadrant. Scattered colonic diverticula noted without acute diverticulitis. Pelvis demonstrates Pedraza catheter and right ureteral stent in satisfactory position along with small amount of gas. Fat containing right inguinal hernia noted. The prostate gland is enlarged and measures approximately 5.3 cm diameter. No ascites. No free air. No obvious adenopathy. Abdominal aorta without aneurysm. Musculoskeletal structures demonstrate degenerative changes. Impression: 1. Mild bibasilar atelectasis. 2. Urinary tract system and specifically the left kidney/ureter as described above with the left ureteral stent terminating in the distal ureter above the level of the bladder and continued but improved left hydroureteronephrosis. 3. The bowel gas pattern is relatively nonspecific although a mild early ileus cannot be excluded. 4. Further chronic changes as described above. Electronically Signed by Darnell Jackson MD 02/04/2019 08:42 A
[2019-02-04] MEDS: SENOKOT S TAB PO SCH ×2 (09:01→20:35)
[2019-02-04] MEDS: amLODIPine 10 MG TAB PO SCH (09:01)
[2019-02-04] MEDS: ATORVASTATIN 20 MG TAB PO SCH (09:02)
[2019-02-04] MEDS: BISACODYL 10 MG SUPP PR SCH ×2 (09:02→20:35)
[2019-02-04 09:17] VITALS: BP 162/84
[2019-02-04] MEDS: CIPROFLOXACIN 200 MG in APPROPRIATE DILUENT 1 EA IV SCH ×2 (09:28→20:35)
[2019-02-04] MEDS: HumaLOG INSULIN (NovoLOG) PER UNIT SC SCH ×4 (09:28→20:49)
[2019-02-04 09:30] VITALS: BP 162/84
[2019-02-04 10:55] LABS: CALCIUM LEVEL 7.9 MG/DL (8.8-10.2); CREATININE FOR GFR 2.86 MG/DL (0.70-1.30); GLOMERULAR FILTRATION RATE 23.6 (>49); MAGNESIUM LEVEL 2.3 MG/DL (1.8-2.4); PHOSPHORUS LEVEL 3.1 MG/DL (2.5-4.9); POTASSIUM SERUM 4.4 MEQ/L (3.5-5.1)
[2019-02-04] MEDS ORDERED: NS 0.45% 1,000 ML IV SCH (12:30)
--- NOTE | 2019-02-04 12:58 | IPNPDOC ---
Date Seen The patient was seen on 02/04/19. Progress Note SUBJECTIVE: Pt c/o b/l flank pain and abdominal distension. pvr after rodarte discontinued were 800 ml, 700 ml, requiring rodarte catheter placement at 6:30am. Pt has had no bowel movement and c/o increasing pain. previous abd xray: fecal stasis. Review of CT abd pelvis this am with surgeon oncall: Ileus with recommendation of liquid diet and increased ambulation. despite ivfluids, pt denies sob. 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 PHYSICAL EXAMINATION: VITALS: PLS SEE BELOW GENERAL: sitting in bed no pallor no respiratory distress HEENT EXAM: Mucous membranes are moist. Extraocular movements are intact. He has good dentition. Thyroid is not enlarged. LUNGS: diminished at bases with fine crackles. CARDIOVASCULAR: Regular rate and rhythm. No murmurs, rubs or gallops. Normal S1 and normal S2. ABDOMEN: right cva tenderness, distended. rodarte with gross hematuria Soft and nontender. Positive bowel sounds. No organomegaly and no masses. EXTREMITIES: No clubbing, cyanosis, or edema. MUSCULOSKELETAL: He has 5/5 strength in his upper and lower extremities. NEURO: Cranial nerves II through XII are intact without any focal deficit. He is awake, alert and oriented times three with a normal mood and a normal affect. LABS: reviewed. pls see below His urine was significant for 3+ glucose, 3+ blood, 7 white blood cells, and 82 red blood cells. IMAGING: He underwent an abdomen and pelvis CT with the findings of: 1. 5 mm calculus in the left distal ureter just proximal to the left ureterovesical junction that had migrated distally from the left proximal ureter since the prior CT scan on January 29, 2019 and there is mild to moderate left hydroureteronephrosis. 2. 4 mm calculus on the right distal ureter just proximal to the ureterovesical junction that has migrated distally from the right distal ureter since the prior CT scan on January 29, 2019 and there is mild right hydroureteronephrosis. 3. Small fat containing direct right inguinal hernia that also contains a portion of the right anterior aspect of the urinary bladder which is similar in appearance compared the prior CT scan on 01/29/2019. 4. Enlarged prostate gland. ASSESSMENT/PLAN: The patient is a 68-year-old male with past medical history of hypertension and prediabetes who presented first to the [facility] emergency room on January 28 with abdominal pain and back pain for two days, and that was similar to the pain he felt when he previously had a kidney stone. He states that the pain at its worst was a 9 out of 10. When he was in the ER last, he was given hydrocodone and told to follow-up with his primary care physician. He was also found to have a kidney stone that was 4 mm in the right ureteropelvic junction. This morning, he states that he feels worse than he did on Wednesday, his pain is 9 out of 10, he is unable to be comfortable and he has a constant pain in his back and bloating in his stomach. The hydrocodone did not help his pain nor did the ibuprofen that he was given by the emergency room so he came back. In the emergency room, he underwent a CT scan and was found to have a 5 mm calculus in the left distal ureter that had moved distally from the left proximal ureter and a 4 mm calculus on the right distal ureter, so the hospitalist service was called for admission. He is a nonsmoker. Does not drink alcohol. 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 ILEUS Per Surgeon operator specialist communications, Dr. Lay,after reviewing CT abd/pelvis 02/04/19, recommends liquid diet and increase ambulation. On iv cipro and flagyl. OBSTRUCTIVE UROPATHY. with bilateral Ureteral stones. on IV fluids in medical/surgical floor. s/p laser lithotripsy and stents, but with clots in the bladder post procedure with worsening creatinine which peaked to 3.3,improved today after stents were re-positioned 02/02/19. on iv cipro. urology and nephrology mgt appreciated. after trial of void and rodarte discontinuation on 02/03/19, pt developed pvr 700-800ml, with worsening bladder discomfort, flank pain bilaterally, and increasing abdominal distension, necessitating rodarte. per urology, Dr. Valenzuela, pt will need to go home with rodarte. CT abd pelvis 02/04/19: enlarged prostate, stents in place , and improved hydronephrosis. Ileus. Constipation with Ileus opioid induced on bowel regimen acute blood loss anemia due to gross hematuria H&H stable asx. no acute indication for rbc transfusion Acute Kidney Injury due to OBSTRUCTIVE UROPATHY, improving. with bilateral Ureteral stones. on IV fluids in medical/surgical floor. s/p laser lithotripsy and stents, but with clots in the bladder post procedure with worsening creatinine which peaked to 3.3,improved today after stents were re-positioned 02/02/19. on iv cipro. urology and nephrology mgt appreciated.after trial of void and rodarte discontinuation on 02/03/19, pt developed pvr 700-800ml, with worsening bladder discomfort, flank pain bilaterally, and increasing abdominal distension, necessitating rodarte. per urology, Dr. Valenzuela, pt will need to go home with rodarte. CT abd pelvis 02/04/19: enlarged prostate, stents in place , and improved hydronephrosis. Ileus. s/p ivfluids. now with mild fluid overload. Prediabetes. The patient will be placed on sliding scale insulin at this time. off metformin due to renal failure due to risk of lactic acidosis. hyoglycemic protocol. Hypertension, due to pain The patient is on ramipril at home. At this time, his blood pressure is 148/68. held ramipril due to renal failure. on norvasc DVT prophylaxis: hold ASA due to persistent hematuria. compression stockings. disposition: discharge postponed due to abd pain from Ileus. VS[facility]I&O Vital Signs Date Time Temp Pulse Resp B/P (MAP) Pulse Ox O2 Delivery O2 Flow Rate FiO2 02/04/19 09:30 98.9 82 16 162/84 (110) 93 02/02/19 19:50 2.0 93 01/31/19 04:44 Room Air I&O- Last 24 Hours up to 6 AM 02/04/19 06:00 Intake Total 4860 ml Output Total 3430 ml Balance 1430 ml Laboratory Data 24H LABS Laboratory Tests 2 02/03/19 16:31: Bedside Glucose (Misc Panel) 176H 02/03/19 20:08: Bedside Glucose (Misc Panel) 146H 02/04/19 06:36: Nucleated Red Blood Cells % (auto) 0.0, Anion Gap 8, Glomerular Filtration Rate 21.4L, Blood Urea Nitrogen 35H, Creatinine 3.11H, Sodium Level 139, Potassium Level 4.2, Chloride Level 108H, Carbon Dioxide Level 23, Calcium Level 8.6L 02/04/19 10:13: Anion Gap 8, Glomerular Filtration Rate 23.6L, Blood Urea Nitrogen 34H, Creatinine 2.86H, Sodium Level 140, Potassium Level 4.4, Chloride Level 108H, Carbon Dioxide Level 24, Calcium Level 7.9L, Phosphorus Level 3.1, Magnesium Level 2.3 02/04/19 11:21: Bedside Glucose (Misc Panel) 163H CBC/BMP Laboratory Tests 02/04/19 06:36 Red Blood Count 3.37 L, Mean Corpuscular Volume 90.8, Mean Corpuscular Hem oglobin 30.3, Mean Corpuscular Hemoglobin Concent 33.3, Red Cell Distribution Width 12.1, Calcium Level 8.6 L 02/04/19 10:13 Calcium Level 7.9 L BHUPINDER SAUNDERS MD Feb 04, 2019 12:58
[2019-02-04 14:00] VITALS: BP 158/81
[2019-02-04] MEDS: TAMSULOSIN 0.4 MG CAP PO SCH (20:35)
[2019-02-04 22:00] VITALS: BP 138/71
[2019-02-05 06:00] VITALS: BP 155/93
[2019-02-05 06:01] LABS: HEMATOCRIT 29.6 % (42.0-52.0); HEMOGLOBIN 9.9 g/dl (13.5-17.5); MEAN CORPUSCULAR HEMOGLOBIN 30.9 pg (27.0-33.0); MEAN CORPUSCULAR HGB CONC 33.4 g/dl (32.0-36.5); MEAN CORPUSCULAR VOLUME 92.5 fl (80.0-96.0); PLATELET COUNT, AUTOMATED 234 10^3/uL (150-450); WHITE BLOOD COUNT 7.5 10^3/uL (4.0-10.0)
[2019-02-05 06:22] LABS: CALCIUM LEVEL 7.9 MG/DL (8.8-10.2); CREATININE FOR GFR 1.85 MG/DL (0.70-1.30); POTASSIUM SERUM 4.2 MEQ/L (3.5-5.1)
[2019-02-05] MEDS: PHENAZOPYRIDINE 100 MG TAB PO SCH ×3 (06:39→21:51)
[2019-02-05] MEDS: metroNIDAZOLE 500 MG in APPROPRIATE DILUENT 1 EA IV SCH ×3 (06:39→23:01)
[2019-02-05] MEDS ORDERED: NALOXONE INJ 0.4 MG/1 ML VIAL (J2310) IV PRN (07:15)
--- NOTE | 2019-02-05 07:22 | IPNPDOC ---
Date Seen The patient was seen on 02/05/19. Progress Note SUBJECTIVE: creatinine 1.8 today. urinating well. pt worried about discontinuing morphine dean of instruction pump c/o left flank pain again this am, but better with morphine. liquids for diet due to ileus. liquid stools due to golytely yesterday. repeat ct abd: no fecal impaction. ileus, improved hydronephrosis. stents in good position. pt ambulated well yesterday around the nurses station and passed HSE, but does not want to go home today due to left flank pain. morphine dean of instruction pump discontinued. prn iv morphine. PHYSICAL EXAMINATION: VITALS: PLS SEE BELOW GENERAL: sitting in bed no pallor no respiratory distress HEENT EXAM: Mucous membranes are moist. Extraocular movements are intact. He has good dentition. Thyroid is not enlarged. LUNGS: diminished at bases with fine crackles. CARDIOVASCULAR: Regular rate and rhythm. No murmurs, rubs or gallops. Normal S1 and normal S2. ABDOMEN: right cva tenderness, distended. rodarte with gross hematuria Soft and nontender. Positive bowel sounds. No organomegaly and no masses. EXTREMITIES: No clubbing, cyanosis, or edema. MUSCULOSKELETAL: He has 5/5 strength in his upper and lower extremities. NEURO: Cranial nerves II through XII are intact without any focal deficit. He is awake, alert and oriented times three with a normal mood and a normal affect. LABS: reviewed. pls see below His urine was significant for 3+ glucose, 3+ blood, 7 white blood cells, and 82 red blood cells. IMAGING: He underwent an abdomen and pelvis CT with the findings of: 1. 5 mm calculus in the left distal ureter just proximal to the left ureterovesical junction that had migrated distally from the left proximal ureter since the prior CT scan on January 29, 2019 and there is mild to moderate left hydroureteronephrosis. 2. 4 mm calculus on the right distal ureter just proximal to the ureterovesical junction that has migrated distally from the right distal ureter since the prior CT scan on January 29, 2019 and there is mild right hydroureteronephrosis. 3. Small fat containing direct right inguinal hernia that also contains a portion of the right anterior aspect of the urinary bladder which is similar in appearance compared the prior CT scan on 01/29/2019. 4. Enlarged prostate gland. ASSESSMENT/PLAN: The patient is a 68-year-old male with past medical history of hypertension and prediabetes who presented first to the [facility] emergency room on January 28, 2019 with abdominal pain and back pain for two days, and that was similar to the pain he felt when he previously had a kidney stone. He states that the pain at its worst was a 9 out of 10. When he was in the ER last, he was given hydrocodone and told to follow-up with his primary care physician. He was also found to have a kidney stone that was 4 mm in the right ureteropelvic junction. This morning, he states that he feels worse than he did on Wednesday, his pain is 9 out of 10, he is unable to be comfortable and he has a constant pain in his back and bloating in his stomach. The hydrocodone did not help his pain nor did the ibuprofen that he was given by the emergency room so he came back. In the emergency room, he underwent a CT scan and was found to have a 5 mm calculus in the left distal ureter that had moved distally from the left proximal ureter and a 4 mm calculus on the right distal ureter, so the hospitalist service was called for admission. He is a nonsmoker. Does not drink alcohol. 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 Lay,after reviewing CT abd/pelvis 02/04/19, recommends liquid diet and increase ambulation. On iv cipro and flagyl. OBSTRUCTIVE UROPATHY. with bilateral Ureteral stones. on IV fluids in medical/surgical floor. s/p laser lithotripsy and stents, but with clots in the bladder post procedure with worsening creatinine which peaked to 3.3,improved today after stents were re-positioned 02/02/19. on iv cipro. urology and nephrology mgt appreciated. after trial of void and rodarte discontinuation on 02/03/19, pt developed pvr 700-800ml, with worsening bladder discomfort, flank pain bilaterally, and increasing abdominal distension, necessitating rodarte. per urology, Dr. Valenzuela, pt will need to go home with rodarte. CT abd pelvis 02/04/19: enlarged prostate, stents in place , and improved hydronephrosis. Ileus. s/p morphine dean of instruction pump 02/04-02/05 on prn iv morphine Constipation with Ileus opioid induced on bowel regimen on full liquid diet encouraged ambulation. acute blood loss anemia due to gross hematuria H&H stable asx. no acute indication for rbc transfusion Acute Kidney Injury due to OBSTRUCTIVE UROPATHY, improving. with bilateral Ureteral stones. on IV fluids in medical/surgical floor. s/p laser lithotripsy and stents, but with clots in the bladder post procedure with worsening creatinine which peaked to 3.3,improved today after stents were re-positioned 02/02/19. on iv cipro. urology and nephrology mgt appreciated.after trial of void and rodarte discontinuation on 02/03/19, pt developed pvr 700-800ml, with worsening bladder discomfort, flank pain bilaterally, and increasing abdominal distension, necessitating rodarte. per urology, Dr. Valenzuela, pt will need to go home with rodarte. CT abd pelvis 02/04/19: enlarged prostate, stents in place , and improved hydronephrosis. Ileus. s/p ivfluids. now with mild fluid overload. Prediabetes. The patient will be placed on sliding scale insulin at this time. off metformin due to renal failure due to risk of lactic acidosis. hyogly [facility] protocol. Hypertension, due to pain The patient is on ramipril at home. At this time, his blood pressure is 148/68. held ramipril due to renal failure. on norvasc DVT prophylaxis: hold ASA due to persistent hematuria. compression stockings. disposition: discharge postponed due to abd pain from Ileus. VS, I&O, 24H, [facility] Vital Signs/I&O Vital Signs Date Time Temp Pulse Resp B/P (MAP) Pulse Ox O2 Delivery O2 Flow Rate FiO2 02/04/19 22:00 99.4 85 18 138/71 (93) 93 02/02/19 19:50 2.0 93 01/31/19 04:44 Room Air I&O- Last 24 Hours up to 6 AM 02/05/19 06:00 Intake Total 2120 ml Output Total 3600 ml Balance -1480 ml Laboratory Data 24H LABS Laboratory Tests 2 02/04/19 06:36: Nucleated Red Blood Cells % (auto) 0.0, Anion Gap 8, Glomerular Filtration Rate 21.4L, Blood Urea Nitrogen 35H, Creatinine 3.11H, Sodium Level 139, Potassium Level 4.2, Chloride Level 108H, Carbon Dioxide Level 23, Calcium Level 8.6L 02/04/19 10:13: Anion Gap 8, Glomerular Filtration Rate 23.6L, Blood Urea Nitrogen 34H, Creatinine 2.86H, Sodium Level 140, Potassium Level 4.4, Chloride Level 108H, Carbon Dioxide Level 24, Calcium Level 7.9L, Phosphorus Level 3.1, Magnesium Level 2.3 02/04/19 11:21: Bedside Glucose (Misc Panel) 163H 02/04/19 16:38: Bedside Glucose (Misc Panel) 185H 02/04/19 20:01: Bedside Glucose (Misc Panel) 136H CBC/BMP Laboratory Tests 02/04/19 06:36 Red Blood Count 3.37 L, Mean Corpuscular Volume 90.8, Mean Corpuscular Hemoglobin 30.3, Mean Corpuscular Hemoglobin Concent 33.3, Red Cell Distribution Width 12.1, Calcium Level 8.6 L 02/04/19 10:13 Calcium Level 7.9 L BHUPINDER SAUNDERS MD Feb 05, 2019 05:50
[2019-02-05] MEDS ORDERED: MORPHINE 4 MG/ML 1ML VIAL/SYRINGE (J2270) IV ONE (07:30)
[2019-02-05] MEDS: MORPHINE 15 MG SA TAB PO SCH ×2 (07:51→21:52)
--- NOTE | 2019-02-05 08:03 | IPN ---
DATE: 02/04/2019 SUBJECTIVE: Patient was seen and examined at the bedside today morning. His was also present at the bedside. The last 24 hours events were noted. Patient was in urinary retention. He needed Pedraza catheter placement. His urine output is improving. However, his creatinine levels are still high. He continues to be on IV fluid hydration. He is also getting the bowel regimen for opioid induced constipation. He reports decreased appetite and abdominal pain, more on the left side. OBJECTIVE: VITAL SIGNS: Temperature is 98.9 degrees Fahrenheit, blood pressure 162/84, pulse is 82, respiratory rate of 16, saturating 93% on room air. Intake and output: Urine output recorded as 2.5 liters yesterday and 1.5 liters so far today since overnight. Weight on the bed scale is not available. PHYSICAL EXAMINATION: GENERAL: The patient is awake, alert and oriented times three. Laying in bed. In mild painful distress. HEAD/NECK: Extraocular muscles intact. Pupils equally round and reactive to light. Neck is supple. There is mildly elevated jugular venous distention (JVD). CARDIOVASCULAR: S1, S2, irregular rate. No edema of the bilateral lower extremities. RESPIRATORY: Mildly decreased breath sounds at the bases with mild amount of crepitations at the bases on deep inspiration. ABDOMEN: Soft. Hyperactive bowel sounds in the right lower quadrant. Very mild amount of tenderness to deep palpation. GENITOURINARY: He has an indwelling Pedraza catheter. Urine in the bag is orange colored. MUSCULOSKELETAL: No clubbing or cyanosis. Pulses are 2+. CENTRAL NERVOUS SYSTEM: No focal deficit. Power is 5/5 in all extremities. LAB REVIEW: CBC showed a WBC of 9.7, hemoglobin 10.2, platelets are 255. BMP done at 10:00 today morning shows sodium 140, potassium 4.4, chloride 108, bicarbonate 24, BUN 34, creatinine is 2.8. Calcium 7.9, phosphorous is 3.1, magnesium is 2.3. IMAGING: CT scan of the abdomen and pelvis was done today morning which showed mild bibasilar atelectasis. Left kidney and ureter with improving left hydroureter nephrosis. Nonspecific bowel gas pattern. Mild early ileus cannot be excluded. CURRENT INPATIENT MEDICATIONS: Patient's medications are all reviewed by me. He continues to be on IV ciprofloxacin and IV Flagyl. I have decreased his IV fluid rate to half normal saline at 50 mL an hour. He is on morphine PC analgesia. I have stopped his Fleet enema. No other change in the medications today as compared with yesterday. ASSESSMENT AND PLAN: 1. Acute renal failure. Patient had bilateral hydroureteronephrosis, renal failure secondary to obstructive uropathy. He is status post bilateral ureteral stone removal and stent placement. Left-sided stent was repositioned. Patient is nonoliguric at this point. Continue to follow for improvement of renal function. 2. Urinary retention. Patient got the Pedraza catheter placed. Continue current dose of Flomax 0.4 mg by mouth daily. 3. Hypertension. Patient was getting continuous IV fluid hydration. I have decreased the IV fluid rehydration rate and I would finish it after one liter. Continue current dose of amlodipine 10 mg by mouth daily. Avoid use of angiotensin-converting enzyme (CHRIS) inhibitors or angiotensin receptor micheline. 4. Constipation. It is secondary to use of opioid pain medications. Avoid use of Fleet enema in acute renal failure. Okay to use Golytely as per primary team. 5. DISPOSITION: Patient could not void overnight and needed replacement of Pedraza catheter. He is unstable to be discharged today. MTDD
[2019-02-05] MEDS ORDERED: MORPHINE 4 MG/ML 1ML VIAL/SYRINGE (J2270) IV PRN (09:00)
[2019-02-05] MEDS: SENOKOT S TAB PO SCH ×2 (09:05→21:51)
[2019-02-05] MEDS: ATORVASTATIN 20 MG TAB PO SCH (09:05)
[2019-02-05] MEDS: amLODIPine 10 MG TAB PO SCH (09:06)
[2019-02-05] MEDS: CIPROFLOXACIN 200 MG in APPROPRIATE DILUENT 1 EA IV SCH ×2 (09:06→21:51)
[2019-02-05] MEDS: BISACODYL 10 MG SUPP PR SCH ×2 (09:06→21:52)
[2019-02-05] MEDS: HumaLOG INSULIN (NovoLOG) PER UNIT SC SCH ×4 (09:08→21:00)
[2019-02-05] MEDS: MORPHINE 30 MG TAB **MSIR PO PRN ×2 (11:46→17:37)
[2019-02-05 14:00] VITALS: BP_SYST 153; BP_DIAS 88; BP_DIAS 92
--- NOTE | 2019-02-05 19:00 | IPN ---
DATE: 02/05/2019 SUBJECTIVE: Patient was seen and examined at the bedside today morning. His renal function is significantly better today as compared with yesterday. Creatinine has come down to 1.8. He continues to have Pedraza catheter. He is making a good amount of urine. He continues to be on gentle IV fluid hydration. He is able to tolerate liquids orally. He is still complaining of pain in the left side. His patient controlled analgesia (EXCHANGE ENGINEER) was stopped, but he is still getting morphine as needed. Electrolytes are within the acceptable range. OBJECTIVE: VITAL SIGNS: Temperature is 99 degrees Fahrenheit, blood pressure 155/93, pulse 76, respiratory rate of 18, saturating 94% on room air. Intake and output: Urine output recorded is 4.4 liters yesterday, 1.7 liters so far today since overnight. Weight in the bed scale is not available. PHYSICAL EXAMINATION: GENERAL: Patient is awake, alert, oriented times three, laying in bed, no apparent distress. HEAD and NECK EXAM: Extraocular muscles intact. Pupils equally round and reactive to light. Mucous membranes are moist. Neck is supple. There is mild elevation of jugular venous distention (JVD). CARDIOVASCULAR: S1, S2, regular rate. Trace edema of the bilateral lower extremities. RESPIRATORY: Mildly decreased breath sounds at the bases. Mild amount of crepitations at the bases on deep inspiration. ABDOMEN: Soft, diminished tinkling bowel sounds bilaterally, nontender. GENITOURINARY: He has an indwelling Pedraza catheter. Urine in the bag is colored because of Pyridium that he is receiving. MUSCULOSKELETAL: No clubbing or cyanosis, pulses are 2+. CENTRAL NERVOUS SYSTEM (LIFE INSURANCE AGENT): No focal deficit. Power is 5/5 in all extremities. LABORATORY REVIEW: CBC showed WBC 7.5, hemoglobin 9.9, platelets are 234. BMP showed sodium 139, potassium 4.2, chloride 107, bicarbonate 26, BUN 23, creatinine 1.8, calcium is 7.9. IMAGING: An abdominal x-ray was done which was read by myself, official report is pending. He has a distended small bowel but no air fluid levels. CURRENT INPATIENT MEDICATIONS: Patient's medications were all reviewed by me. His IV fluid is going to finish today after he gets 1 liter. He continues to be on IV antibiotics. EXCHANGE ENGINEER has been stopped. No other change in medications today as compared with yesterday. ASSESSMENT AND PLAN: 1. Acute renal failure. It was secondary to bilateral obstructive uropathy. Renal function is improving after bilateral ureteral stent placement. Continue to encourage oral hydration. IV fluids are being stopped today. 2. Urinary retention. He continues to have Pedraza catheter. He will probably have to go home with the Pedraza catheter and get the voiding trial as outpatient. Continue the Flomax. 3. Hypertension. Blood pressure is improving. Continue current dose of amlodipine 10 mg by mouth daily.
[2019-02-05] MEDS: TAMSULOSIN 0.4 MG CAP PO SCH (21:52)
[2019-02-05 22:00] VITALS: BP 150/90
[2019-02-06 00:30] LABS: CALCIUM LEVEL 7.8 MG/DL (8.8-10.2); CREATININE FOR GFR 1.47 MG/DL (0.70-1.30); GLOMERULAR FILTRATION RATE 50.9 (>49); POTASSIUM SERUM 3.8 MEQ/L (3.5-5.1)
[2019-02-06 06:00] VITALS: BP 157/80
[2019-02-06 06:18] LABS: HEMATOCRIT 30.3 % (42.0-52.0); HEMOGLOBIN 10.1 g/dl (13.5-17.5); MEAN CORPUSCULAR HEMOGLOBIN 29.9 pg (27.0-33.0); MEAN CORPUSCULAR HGB CONC 33.3 g/dl (32.0-36.5); MEAN CORPUSCULAR VOLUME 89.6 fl (80.0-96.0); PLATELET COUNT, AUTOMATED 245 10^3/uL (150-450); RED BLOOD COUNT 3.38 10^6/uL (4.30-6.10); WHITE BLOOD COUNT 6.2 10^3/uL (4.0-10.0)
[2019-02-06] MEDS: PHENAZOPYRIDINE 100 MG TAB PO SCH (06:37)
[2019-02-06] MEDS: metroNIDAZOLE 500 MG in APPROPRIATE DILUENT 1 EA IV SCH (06:37)
[2019-02-06] MEDS: MORPHINE 30 MG TAB **MSIR PO PRN (06:38)
[2019-02-06 06:42] LABS: CALCIUM LEVEL 8.1 MG/DL (8.8-10.2); CREATININE FOR GFR 1.36 MG/DL (0.70-1.30); GLOMERULAR FILTRATION RATE 55.6 (>49); POTASSIUM SERUM 4.2 MEQ/L (3.5-5.1)
[2019-02-06] MEDS: HumaLOG INSULIN (NovoLOG) PER UNIT SC SCH (07:30)
--- NOTE | 2019-02-06 07:58 | DS.PDOC ---
Discharge Summary General Date of Admission Jan 31, 2019 at 03:50 Date of Discharge February 06, 2019 Discharge Summary PRIMARY CARE PHYSICIAN: DR. ARIADNE ELENA INPATIENT CONSULTANTS: UROLOGIST, SECOND BALLER, DR.KHALID ISBELL, DR. KEBEDE DISCHARGE DIAGNOSES: OBSTRUCTIVE UROPATHY KIDNEY STONES S/P LASER LITHOTRIPSY AND STENT PLACEMENT ACUTE KIDNEY INJURY OPIOID-INDUCED ILEUS BLADDER CLOTS GROSS HEMATURIA ACUTE BLOOD LOSS ANEMIA ANXIETY HYPERTENSION PRE-DIABETIC DISCHARGE MEDS:PLS SEE BELOW DISCHARGE INSTRUCTIONS: GALILEA Chaparro PCP DR. ELIZALDE, NEPHROLOGY, UROLOGY WITHIN 5-7DAYS. MATIAS CARE AVOID NSAIDS, IBUPROFEN, ASA, ALEVE, NAPROXEN HISTORY OF PRESENTING ILLNESS: The patient is a 68-year-old male with past medical history of hypertension and prediabetes who presented first to the [facility] emergency room on January 28, 2019 with abdominal pain and back pain for two days, and that was similar to the pain he felt when he previously had a kidney stone. He states that the pain at its worst was a 9 out of 10. When he was in the ER last, he was given hydrocodone and told to follow-up with his primary care physician. He was also found to have a kidney stone that was 4 mm in the right ureteropelvic junction. This morning, he states that he feels worse than he did on Wednesday, his pain is 9 out of 10, he is unable to be comfortable and he has a constant pain in his back and bloating in his stomach. The hydrocodone did not help his pain nor did the ibuprofen that he was given by the emergency room so he came back. In the emergency room, he underwent a CT scan and was found to have a 5 mm calculus in the left distal ureter that had moved distally from the left proximal ureter and a 4 mm calculus on the right distal ureter, so the hospitalist service was called for admission. He is a nonsmoker. Does not drink alcohol. 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 HOSPITAL COURSE. ILEUS Per Surgeon microphone boom operator, Dr. Lay,after reviewing CT abd/pelvis 02/04/19, recommends liquid diet and increase ambulation. Avoid excessive opioid use. OBSTRUCTIVE UROPATHY. with bilateral Ureteral stones. s/p IV fluids in medical/surgical floor. s/p laser lithotripsy and stents, but with clots in the bladder post procedure with worsening creatinine which peaked to 3.3,improved after stents were re-positioned 02/02/19. on iv cipro. urology and nephrology mgt appreciated. after trial of void and matias discontinuation on 02/03/19, pt developed pvr 700-800ml, with worsening bladder discomfort, flank pain bilaterally, and increasing abdominal distension, necessitating matias to be placed again. per urology, Dr. Valenzuela, pt will need to go home with matias. CT abd pelvis 02/04/19: enlarged prostate, stents in place , and improved hydronephrosis. Ileus. s/p morphine anesthesiology medical doctor pump 02/04-02/05 s/p prn iv morphine which caused ileus. now on prn po morphine Constipation with Ileus opioid induced-ielus on bowel regimen on full liquid diet to be advanced as tolerated. encouraged ambulation. passing flatus Bloating prn simethicone Anxiety pt requesting prn meds. xanax q8hrs prn . acute blood loss anemia due to gross hematuria H&H stable asx. no acute indication for rbc transfusion Acute Kidney Injury due to OBSTRUCTIVE UROPATHY, improving. with bilateral Ureteral stones. on IV fluids in medical/surgical floor. s/p laser lithotripsy and stents, but with clots in the bladder post procedure with worsening creatinine which peaked to 3.3,improved today after stents were re-positioned 02/02/19. on iv cipro. urology and nephrology mgt appreciated.after trial of void and matias discontinuation on 02/03/19, pt developed pvr 700-800ml, with worsening bladder discomfort, flank pain cata aterally, and increasing abdominal distension, necessitating matias. per urology, Dr. Valenzuela, pt will need to go home with matias. CT abd pelvis 02/04/19: enlarged prostate, stents in place , and improved hydronephrosis. Ileus. s/p ivfluids. now with mild fluid overload. Prediabetes. The patient will be placed on sliding scale insulin at this time. off metformin due to renal failure due to risk of lactic acidosis. hyoglycemic protocol. Hypertension, due to pain The patient is on ramipril at home. At this time, his blood pressure is 148/68. held ramipril due to renal failure. on norvasc DVT prophylaxis: hold ASA due to persistent hematuria. compression stockings. DISCHARGE PHYSICAL EXAMINATION: VITALS: PLS SEE BELOW GENERAL: sitting in bed no pallor no respiratory distress HEENT EXAM: Mucous membranes are moist. Extraocular movements are intact. He has good dentition. Thyroid is not enlarged. LUNGS: diminished at bases with fine crackles. CARDIOVASCULAR: Regular rate and rhythm. No murmurs, rubs or gallops. Normal S1 and normal S2. ABDOMEN: right cva tenderness, decreased distension. matias with gross hematuria Soft and nontender. Positive hypoactive bowel sounds. No organomegaly and no masses. EXTREMITIES: No clubbing, cyanosis, or edema. MUSCULOSKELETAL: He has 5/5 strength in his upper and lower extremities. NEURO: Cranial nerves II through XII are intact without any focal deficit. He is awake, alert and oriented times three with a normal mood and a normal affect. DISCHARGE LABS, MICROBIOLOGY, IMAGING STUDIES: PLS SEE BELOW IMAGING: He underwent an abdomen and pelvis CT with the findings of: 1. 5 mm calculus in the left distal ureter just proximal to the left ureterovesical junction that had migrated distally from the left proximal ureter since the prior CT scan on January 29, 2019 and there is mild to moderate left hydroureteronephrosis. 2. 4 mm calculus on the right distal ureter just proximal to the ureterovesical junction that has migrated distally from the right distal ureter since the prior CT scan on January 29, 2019 and there is mild right hydroureteronephrosis. 3. Small fat containing direct right inguinal hernia that also contains a portion of the right anterior aspect of the urinary bladder which is similar in appearance compared the prior CT scan on 01/29/2019. 4. Enlarged prostate gland. TIME SPENT ON DISCHARGE: 30 MIN Vital Signs/I&Os Vital Signs Date Time Temp Pulse Resp B/P (MAP) Pulse Ox O2 Delivery O2 Flow Rate FiO2 02/06/19 07:08 16 02/06/19 06:00 97.2 87 157/80 (105) 90 02/02/19 19:50 2.0 93 01/31/19 04:44 Room Air I&O- Last 24 Hours up to 6 AM 02/06/19 06:00 Intake Total 2680 ml Output Total 5550 ml Balance -2870 ml Laboratory Data Labs 24H Laboratory Tests 2 02/05/19 11:56: Bedside Glucose (Misc Panel) 134H 02/05/19 17:04: Bedside Glucose (Misc Panel) 130H 02/05/19 20:33: Bedside Glucose (Misc Panel) 174H 02/05/19 23:57: Anion Gap 7L, Glomerular Filtration Rate 50.9, Blood Urea Nitrogen 18, Creatinine 1.47H, Sodium Level 138, Potassium Level 3.8, Chloride Level 104, Carbon Dioxide Level 27, Calcium Level 7.8L 02/06/19 05:47: Nucleated Red Blood Cells % (auto) 0.0, Anion Gap 5L, Glomerular Filtration Rate 55.6, Blood Urea Nitrogen 16, Creatinine 1.36H, Sodium Level 140, Potassium Level 4.2, Chloride Level 106, Carbon Dioxide Level 29, Calcium Level 8.1L CBC/BMP Laboratory Tests 02/05/19 23:57 Calcium Level 7.8 L 02/06/19 05:47 Calcium Level 8.1 L, Red Blood Count 3.38 L, Mean Corpuscular Volume 89.6, Mean Corpuscular Hemoglobin 29.9, Mean Corpuscular Hemoglobin Concent 33.3, Red Cell Distribution Width 11.9 FSBS Laboratory Tests Test 02/05/19 11:56 02/05/19 17:04 02/05/19 20:33 Range/Units Bedside Glucose (Misc Panel) 134 130 174 80-115 MG/DL Discharge Medications Scheduled Amlodipine Besylate (Amlodipine Besylate) 10 Mg Tab, 10 MG PO DAILY Atorvastatin Calcium (Atorvastatin Calcium) 40 Mg Tab, 40 MG PO DAILY, (Reported) Ciprofloxacin HCl (Cipro) 250 Mg Tab, 250 MG PO BID Docusate Sod/Senna (Senokot S 8.6-50 mg) 1 Tab Tab, 2 TAB PO BID Lactobacillus Acidophilus (Bacid) 1 Tab Tab, 1 TAB PO AC Polyethylene Glycol (Miralax) 1 Pow Pow, 17 GRAM PO BID for constipation dissolve in water Sitagliptin Phosphate (Januvia) 100 Mg Tab, 100 MG PO DAILY, (Reported) Tamsulosin Hydrochloride (Flomax) 0.4 Mg Cap, 0.4 MG PO DAILY, (Reported) Scheduled PRN Acetaminophen/Hydrocodone ([place] 5-325 mg) 1 Tab Tab, 1 TAB PO Q6H PRN for PAIN, (Reported) Allergies Coded Allergies: Sulfa (Sulfonamide Antibiotics) (Unverified Allergy, Unknown, FAMILY HISTORY, WOULD LIKE TO AVOID, 01/31/19) BHUPINDER SAUNDERS MD Feb 06, 2019 07:57
[2019-02-06] MEDS ORDERED: MORPHINE 30 MG TAB **MSIR PO ONE (08:00)
[2019-02-06] MEDS ORDERED: SIMETHICONE 80 MG CHEW TAB PO ONE (08:00)
[2019-02-06] MEDS ORDERED: ALPRAZolam 0.25 MG TAB PO PRN ×2 (08:00)
[2019-02-06] MEDS ORDERED: SIMETHICONE 80 MG CHEW TAB PO PRN (08:00)
[2019-02-06] MEDS ORDERED: ALPRAZolam 0.25 MG TAB PO ONE (08:00)
[2019-02-06] MEDS ORDERED: MSIR30TA PO (08:01)
[2019-02-06] MEDS ORDERED: ALPR0.25 PO (08:01)
[2019-02-06] MEDS ORDERED: DULC10SU2 PR (08:04)
[2019-02-06] MEDS ORDERED: MILK120011 PO (08:04)
[2019-02-06] MEDS ORDERED: SIME80TA PO (08:06)
[2019-02-06] MEDS: CIPROFLOXACIN 200 MG in APPROPRIATE DILUENT 1 EA IV SCH (09:00)
[2019-02-06] MEDS: BISACODYL 10 MG SUPP PR SCH (09:00)
[2019-02-06 09:13] VITALS: BP 157/80
[2019-02-06] MEDS: SENOKOT S TAB PO SCH (09:13)
[2019-02-06] MEDS: ATORVASTATIN 20 MG TAB PO SCH (09:13)
[2019-02-06] MEDS: amLODIPine 10 MG TAB PO SCH (09:13)
--- NOTE | 2019-02-06 12:13 | IPN ---
DATE OF SERVICE: 02/06/2019 SUBJECTIVE: Patient was seen and examined at the bedside today morning. He is afebrile and hemodynamically stable. He reports that he is feeling much better today as compared with yesterday. Abdominal pain is improving. Renal function is also improving. Creatinine is down to 1.3 today. He continues to have Pedraza catheter. OBJECTIVE: VITAL SIGNS: Temperature is 97.2 degrees Fahrenheit, blood pressure 157/80, pulse 87, respiratory rate of 60, saturating 90% on room air. Intake and output: Urine output recorded is 4.8 liters yesterday, 2.4 liters so far today since overnight. Weight in the bed scale is not available. PHYSICAL EXAMINATION: GENERAL: Patient is awake, alert, oriented times three, sitting up on the sofa today. HEAD and NECK EXAM: Extraocular muscles intact. Pupils equally round and reactive to light. Mucous membranes are moist. Neck is supple. There is no jugular venous distention (JVD). CARDIOVASCULAR: S1, S2, regular rate. Trace edema of the bilateral lower extremities. RESPIRATORY: Chest is clear to auscultation bilaterally. Bilateral equal air entry. No rales or rhonchi. ABDOMEN: Soft, obese, positive bowel sounds, nontender. GENITOURINARY: He has an indwelling Pedraza catheter. Urine in the bag is orange colored because of Pyridium. MUSCULOSKELETAL: No clubbing or cyanosis, pulses are 2+. CENTRAL NERVOUS SYSTEM (DAMPENER OPERATOR): No focal deficit. Power is 5/5 in all extremities. LABORATORY REVIEW: CBC showed a WBC 6.2, hemoglobin 10.1, platelets are 245. BMP showed sodium 140, potassium 4.2, chloride 106, bicarbonate 29, BUN 16, creatinine 1.3. CURRENT INPATIENT MEDICATIONS: Patient's medications were all reviewed by me. There is no change in the medications today as compared with yesterday. ASSESSMENT AND PLAN: 1. Acute renal failure. It was secondary to bilateral obstructive uropathy. Patient is postobstructive diuresis phase. He is making a lot of urine. He is able to hydrate himself. Renal function continues to improve. Electrolytes are within the accetable range. 2. Urinary retention. Patient continues to have Pedraza catheter. He will be discharged with the Pedraza catheter and followup with urology as outpatient. 3. Hypertension. Blood pressure is controlled. Continue current dose of amlodipine 10 mg daily. Further adjustment of antihypertensive medications will be done as outpatient. DISPOSITION: Patient is okay to be discharged from nephrology standpoint.
[2019-02-06] MEDS ORDERED: MORP15TA2 PO (12:56)
[2019-02-07 00:06] LABS: Ca Ox Monohydrate 90 % (.)
--- NOTE | 2019-02-07 07:55 | REP ---
Clinical: Abdominal distension. Technique: Two supine views of the abdomen and pelvis. Findings: Right ureteral stent appears to be in satisfactory position. The left ureteral stent is again noted to be terminating in the distal ureter and not within the bladder. The bowel gas pattern demonstrates distended air-filled colon as well as moderately distended small bowel suggesting ileus without evidence for small bowel obstruction pattern. Skeletal structures are intact. Impression: 1. Left ureteral stent terminates in the distal ureter. 2. Bowel gas pattern suggests ileus. Electronically Signed by Darnell Jackson MD 02/05/2019 08:04 A
== END 2019-02-06 11:20 | disposition home or self-care (01) | DRG 660 ==
LOC: M ED 22:57 → M ED INP 01-31 03:50 → M MS5PR 01-31 05:48
PROVIDERS: ADMIT Internal Medicine; ATTEND General Practice
PROC: 0TC78ZZ Extirpation of Matter from Left Ureter, Via Natural or Artificial Opening Endoscopic (ICD-10-PCS; 2019-01-31)
PROC: 0TC68ZZ Extirpation of Matter from Right Ureter, Via Natural or Artificial Opening Endoscopic (ICD-10-PCS; 2019-01-31)
PROC: 0T788DZ Dilation of Bilateral Ureters with Intraluminal Device, Via Natural or Artificial Opening Endoscopic (ICD-10-PCS; principal; 2019-01-31 07:30)
PROC: 0T778DZ Dilation of Left Ureter with Intraluminal Device, Via Natural or Artificial Opening Endoscopic (ICD-10-PCS; 2019-02-02)
PROC: 0TP98DZ Removal of Intraluminal Device from Ureter, Via Natural or Artificial Opening Endoscopic (ICD-10-PCS; 2019-02-02)
DX: N13.2 Hydronephrosis with renal and ureteral calculous obstruction (principal); D62 Acute posthemorrhagic anemia; K56.7 Ileus, unspecified; I10 Essential (primary) hypertension; N17.9 Acute kidney failure, unspecified; T40.2X5A Adverse effect of other opioids, initial encounter; K59.03 Drug induced constipation; R73.03 Prediabetes; F41.9 Anxiety disorder, unspecified; R33.9 Retention of urine, unspecified; E78.5 Hyperlipidemia, unspecified; N40.1 Benign prostatic hyperplasia with lower urinary tract symptoms; Z79.899 Other long term (current) drug therapy; Z79.84 Long term (current) use of oral hypoglycemic drugs

== ENCOUNTER 2019-02-19 11:51 | Inpatient (IN) | payer MEDICARE, BC, OTHER ==
[~2019-02-19] VITALS: Ht 188 cm; Wt 110.2 kg
[~2019-02-19 11:51] MED LIST changes: +ALPR0.25 PO; +AMLO10TA5 PO; +ASPI81TAEC PO; +ATOR40TA75; +ATOR40TA75 PO; +BACITAB PO; +CIPR-250 PO; +CIPR500S PO; +DULC10SU2 PR; +IBUP1TAB6 PO; +JANU100T; +JANU100T PO; +METF500T13; +METF500T13 PO; +MILK120011 PO; +MIRA3350 PO; +MORP15TA2 PO; +MSIR30TA PO; +NORC1TAB7 PO; +RAMI1CAP24; +RAMI1CAP24 PO; +SENO8.6T10 PO; +SIME80TA PO; +VITMTA PO
[2019-02-19] MEDS ORDERED: FINA5TAB2 PO (12:19)
[2019-02-19] MEDS ORDERED: METF500T13 PO (12:19)
[2019-02-19] MEDS ORDERED: ACETAMINOPHEN 325 MG TAB PO ONE (13:00)
[2019-02-19] MEDS ORDERED: NS 1,000 ML IV ONE (13:00)
[2019-02-19 13:36] LABS: APPEARANCE, URINE CLOUDY (CLEAR); BACTERIA, URINE AUTO 1+ (NEGATIVE); BILIRUBIN, URINE AUTO NEGATIVE (NEGATIVE); BLOOD, URINE BLOOD 3+ (NEGATIVE); COLOR, URINE YELLOW (YELLOW); GLUCOSE, URINE (UA) AUTO 3+ mg/dL (NEGATIVE); KETONE, URINE AUTO NEGATIVE (NEGATIVE); LEUKOCYTE ESTERASE, URINE AUTO 1+ (NEGATIVE); MUCUS, URINE SMALL (NEGATIVE); NITRITE, URINE AUTO NEGATIVE (NEGATIVE); PROTEIN, URINE AUTO 2+ mg/dL (NEGATIVE); RBC, URINE AUTO TNTC /HPF (0-3); SPECIFIC GRAVITY URINE AUTO 1.009 (1.002-1.035); SQUAMOUS EPITHELIAL CELL UR AU 0 /HPF (0-6); UROBILINOGEN, URINE AUTO 0.2 mg/dL (0.0-2.0); WBC, URINE AUTO 29 /HPF (0-3)
[2019-02-19 13:39] LABS: BASO % 0.2 % (0.0-1.0); HEMATOCRIT 30.9 % (42.0-52.0); HEMOGLOBIN 10.6 g/dl (13.5-17.5); LYMPH # 0.4 10^3/uL (1.5-4.5); LYMPH % 2.1 % (24.0-44.0); MEAN CORPUSCULAR HEMOGLOBIN 30.4 pg (27.0-33.0); MEAN CORPUSCULAR HGB CONC 34.3 g/dl (32.0-36.5); MEAN CORPUSCULAR VOLUME 88.5 fl (80.0-96.0); NEUTROPHILS # 15.6 10^3/uL (1.8-7.7); NEUTROPHILS % 85.3 % (36.0-66.0); PLATELET COUNT, AUTOMATED 289 10^3/uL (150-450); RED BLOOD COUNT 3.49 10^6/uL (4.30-6.10); WHITE BLOOD COUNT 18.3 10^3/uL (4.0-10.0)
[2019-02-19 13:51] LABS: INR 1.19; PROTHROMBIN TIME 15.3 SECONDS (12.1-14.4)
[2019-02-19 13:52] LABS: PARTIAL THROMBOPLASTIN TIME 34.5 SECONDS (25.4-37.6)
[2019-02-19 13:57] LABS: INFLUENZA A AMPLIFICATION NEGATIVE (NEGATIVE); INFLUENZA B AMPLIFICATION NEGATIVE (NEGATIVE)
[2019-02-19 13:58] LABS: ALBUMIN 3.1 GM/DL (3.2-5.2); ALT/SGPT 27 U/L (12-78); AMYLASE 16 U/L (25-115); BILIRUBIN,DIRECT 0.3 MG/DL (0.0-0.2); BILIRUBIN,TOTAL 0.9 MG/DL (0.2-1.0); BLOOD UREA NITROGEN 12 MG/DL (7-18); CALCIUM LEVEL 7.9 MG/DL (8.8-10.2); CARBON DIOXIDE LEVEL 26 MEQ/L (21-32); CHLORIDE LEVEL 95 MEQ/L (98-107); CK-MB VALUE MASS < 1.0 NG/ML (<3.6); CPK CREATINE PHOSPHOKINASE 48 U/L (39-308); CREATININE FOR GFR 1.35 MG/DL (0.70-1.30); GLOMERULAR FILTRATION RATE 56.1 (>49); GLUCOSE, FASTING 253 MG/DL (70-100); MB/CK RELATIVE INDEX 2.08 (< OR =4); POTASSIUM SERUM 3.7 MEQ/L (3.5-5.1); SODIUM LEVEL 129 MEQ/L (136-145); TOTAL PROTEIN 6.4 GM/DL (6.4-8.2); TROPONIN I < 0.02 NG/ML (< 0.10)
[2019-02-19] MEDS ORDERED: CIPROFLOXACIN 400 MG in APPROPRIATE DILUENT 1 EA IV ONE (14:00)
[2019-02-19] MEDS ORDERED: DILUENT IV ONE (14:00)
[2019-02-19] MEDS ORDERED: NS IV ONE (14:00)
[2019-02-19] MEDS ORDERED: OXYB5TAB10 PO (15:14)
--- NOTE | 2019-02-19 15:58 | HPEPDOC ---
[facility] Medical History & Physical Date of Admission Feb 19, 2019 Attending Physician: MEREDITH MCGARRY MD History and Physical CHIEF COMPLAINT: Fevers HISTORY OF PRESENT ILLNESS: Patient is a 23-year-old male with past medical history of nephrolithiasis with recent lithotripsy and stent placement this month and discharged on February 06, hypertension, hyperlipidemia, diabetes mellitus presented to ER with complaints of several days of feeling ill with fevers and chills. Patient reported he has been wrapped up in blanket due to chills and found to have a fever of over 104 Fahrenheit home. Since discharge from the hospital recently he also has had some looser stool but not diarrhea as well as urinary frequency, urgency, and mild back pain on the right side. Denies any dysuria or any other complaints. In ER, patient was found to be febrile up to 102 with leukocytosis and tachycardia. Of note, he was recently admitted and discharged for cystoscopy/lithotripsy/placement and replacement of R. ureteral stent and evacuation of clot by urology. PAST MEDICAL HISTORY: Refer to [facility] PAST SURGICAL HISTORY: 01/31: Cystoscopy, bilateral ureteroscopy, lithotripsy with basketing of left ureteral calculi with JJ stent placement, basketing of right ureteral calculi. 02/02: Cystoscopy, removal with replacement of right ureteral stent, and evacuation of clot. Tonsillectomy Vasectomy SOCIAL HISTORY: Denies tobacco, alcohol or illicit drug use. FAMILY HISTORY: No known family medical problems ALLERGIES: Please see below. REVIEW OF SYSTEMS: 10 point review of system negative except as stated in [facility] HOME MEDICATIONS: Please see below. PHYSICAL EXAMINATION: General: Alert, mild weakness, no significant distress. Eyes: Normal sclera, EOMI, KATE HENT: Atraumatic, neck supple, moist mucous membranes Cardiovascular: Normal rate, normal rhythm. No murmurs appreciated. Pulmonary: Clear to auscultation b/l, no wheezing GI: Soft, nontender, nondistended. Mild R. sided CVA tenderness. Skin: Warm and dry Neuro: CN grossly intact. No focal deficits. Strengths equal b/l. Psych: oriented x 3 LABORATORY DATA: See below. IMAGING: Pending CXR and Abdominal CT. MICROBIOLOGY: Please see below. ASSESSMENT AND PLAN: 1. Sepsis - Likely 2/2 UTI in setting of recent urologic procedures and stent placements. - Lactic acid WNL. - s/p 30cc/kg IVF and cipro in ER with some improvement in symptoms. - UA suspicious for UTI, f/u urine and blood cultures. - Will start on broad spectrum Abx until source can be narrowed and blood culture negative. - CXR ordered. Obtain CT abdomen and pelvis. - Consult Urology. Discussed with urology, recommended placed rodarte. 2. DM - Hold oral meds. - Accuchecks and start on ISS ACHS. 3. HTN - Resume home meds. 4. HLD - Resume home meds. DVT ppx: HSQ and HEATHER Full code Patient is high risk due to Sepsis and might require urological intervention. Estimated length of stay 3-4 days with expected disposition to home. Vital Signs Vital Signs Date Time Temp Pulse Resp B/P (MAP) Pulse Ox O2 Delivery O2 Flow Rate FiO2 02/19/19 14:55 101.2 87 20 127/64 (85) 94 Room Air Laboratory Data Labs 24H Laboratory Tests 2 02/19/19 13:05: Immature Granulocyte % (Auto) 1.4, White Blood Count 18.3H, Red Blood Count 3.49L, Hemoglobin 10.6L, Hematocrit 30.9L, Mean Corpuscular Volume 88.5, Mean Corpuscular Hemoglobin 30.4, Mean Corpuscular Hemoglobin Concent 34.3, Red Cell Distribution Width 11.9, Platelet Count 289, Neutrophils (%) (Auto) 85.3H, Lymphocytes (%) (Auto) 2.1L, Monocytes (%) (Auto) 11.0H, Eosinophils (%) (Auto) 0.0, Basophils (%) (Auto) 0.2, Neutrophils # (Auto) 15.6H, Lymphocytes # (Auto) 0.4L, Monocytes # (Auto) 2.0H, Eosinophils # (Auto) 0.0, Basophils # (Auto) 0.0, Nucleated Red Blood Cells % (auto) 0.0, Prothrombin Time 15.3H, Prothromb Time International Ratio 1.19, Activated Partial Thromboplast Time 34.5, Urine Appearance CLOUDYH, Urine Color YELLOW, Urine pH 5.0, Urine Specific [place] 1.009, Urine Protein 2+H, Urine Glucose (UA) 3+H, Urine Ketones NEGATIVE, Urine Urobilinogen 0.2, Urine Bilirubin NEGATIVE, Urine Leukocyte Esterase 1+H, Urine Blood 3+H, Urine Nitrite NEGATIVE, Urine WBC (Auto) 29H, Urine RBC (Auto) TNTCH, Urine Hyaline Casts (Auto) 0, Urine Bacteria (Auto) 1+H, Urine Squamous Epithelial Cells 0, Urine Mucus (Auto) SMALL, Urine Sperm (Auto) , Anion Gap 8, Glomerular Filtration Rate 56.1, Lactic Acid Level 1.3, Calcium Level 7.9L, Aspartate Amino Transf (AST/SGOT) 18, Alanine Aminotransferase (ALT/SGPT) 27, Alkaline Phosphatase 51, Total Bilirubin 0.9, Direct Bilirubin 0.3H, Total Creatine Kinase 48, Creatine Kinase MB < 1.0, Creatine Kinase MB Relative Index 2.08, Troponin I < 0.02, C-Reactive Protein, Quantitative 12.10H, Total Protein 6.4, Albumin 3.1L, Albumin/Globulin Ratio 0.94L, Amylase Level 16L, Influenza Type A (RT-PCR) NEGATIVE, Influenza Type B (RT-PCR) NEGATIVE CBC/BMP Laboratory Tests 02/19/19 13:05 Red Blood Count 3.49 L, Mean Corpuscular Volume 88.5, Mean Corpuscular Hemoglobin 30.4, Mean Corpuscular Hemoglobin Concent 34.3, Red Cell Distribution Width 11.9, Neutrophils (%) (Auto) 85.3 H, Lymphocytes (%) (Auto) 2.1 L, Monocytes (%) (Auto) 11.0 H, Eosinophils (%) (Auto) 0.0, Basophils (%) (Auto) 0.2, Neutrophils # (Auto) 15.6 H, Lymphocytes # (Auto) 0.4 L, Monocytes # (Auto) 2.0 H, Eosinophils # (Auto) 0.0, Basophils # (Auto) 0.0 Microbiology Microbiology 02/19/19 Blood Culture, Received Pending 02/19/19 Blood Culture, Received Pending 02/19/19 Gastrointestinal Tract Panel (PCR) - Final, Complete 02/19/19 Urine Culture, Received Pending Home Medications Scheduled Amlodipine Besylate (Amlodipine Besylate) 10 Mg Tab, 10 MG PO DAILY Atorvastatin Calcium (Atorvastatin Calcium) 40 Mg Tab, 40 MG PO DAILY Finasteride (Finasteride) 5 Mg Tablet, 5 MG PO DAILY Metformin HCl (Metformin HCl) 500 Mg Tablet, 500 MG PO BID Sitagliptin Phosphate (Januvia) 100 Mg Tab, 100 MG PO DAILY Tamsulosin HCl (Flomax) 0.4 Mg Cap, 0.4 MG PO DAILY Scheduled PRN Oxybutynin Chloride (Oxybutynin Chloride) 5 Mg Tablet, 5 MG PO Q8H PRN for BLADDER SPASM Allergies Coded Allergies: Sulfa (Sulfonamide Antibiotics) (Unverified Allergy, Unknown, FAMILY HISTORY, WOULD LIKE TO AVOID, 01/31/19) MEREDITH MCGARRY MD Feb 19, 2019 15:58
[2019-02-19] MEDS ORDERED: GLUCOSE 4 GM CHEW TABLET PO PRN (16:00)
[2019-02-19] MEDS ORDERED: DEXTROSE 50% 50 ML SYRINGE IV PRN (16:00)
[2019-02-19] MEDS ORDERED: GLUCAGON FOR INJ 1 MG VIAL (J1610) SC PRN (16:00)
[2019-02-19] MEDS ORDERED: PIPERACILLIN/TAZOBACTAM SOD 3.375 GM in D5W MINI-BAG PLUS 50 ML IV SCH (16:00)
[2019-02-19] MEDS ORDERED: PIPERACILLIN/TAZOBACTAM SOD 4.5 GM in D5W MINI-BAG PLUS 50 ML IV SCH (17:00)
[2019-02-19] MEDS ORDERED: VANCOMYCIN HCL 1,000 MG, VIAL MATE ADAPTER 1 EACH in D5W 250 ML IV ONE (18:00)
[2019-02-19] MEDS ORDERED: PIPERACILLIN/TAZOBACTAM SOD 4.5 GM in D5W MINI-BAG PLUS 50 ML IV ONE (18:00)
[2019-02-19] MEDS ORDERED: ACETAMINOPHEN TAB 650MG DOSE (2X325MG) As Ordered ONE (19:23)
[2019-02-19] MEDS: HumaLOG INSULIN (NovoLOG) PER UNIT SC SCH ×2 (19:25→21:00)
[2019-02-19] MEDS: ACETAMINOPHEN TAB 650MG DOSE (2X325MG) PO PRN (19:27)
[2019-02-19] MEDS ORDERED: IBUPROFEN 400 MG TAB PO ONE (20:00)
[2019-02-19] MEDS: ONDANSETRON 4MG/2ML VIAL (J2405) IV SCH ×2 (20:11→23:35)
--- NOTE | 2019-02-19 21:02 | ECGEPIP ---
Stationary ECG Study [facility] - ED Test Date: 2019-02-19 Pat Name: OLIVER CLARK Department: Room: - Gender: M School Resource Officer: : 1950 Requested By: Mallorie Ramirez PA-C Order Number: [id number] Reading MD: Davina Vieira Measurements Intervals [place] Rate: 86 P: 47 IN: 180 QRS: -6 QRSD: 83 T: 31 QT: 329 QTc: 394 Interpretive Statements SINUS RHYTHM NO PRIOR FOR COMPARISON Electronically Signed On 02-19-2019 21:02:34 EDT by Davina Vieira
[2019-02-19 21:10] VITALS: BP 136/65
--- NOTE | 2019-02-19 22:02 | PHACANCOPD ---
PHARMACY VANCOMYCIN DOSING Pt Demographics Demographics Patient Age:68 , Weight:109.090 , Gender: male Adjusted Body Weight Date: 02/19/19, Adjusted Body Weight: [93] Kg Vancomycin Vancomycin indication: SEPSIS Vancomycin Target Ranges: 15-20 mcg/ml Vancomycin Load Y/N: Yes Load Dose Date Time Vancomycin Load Dose: 2GM Date: 02/19 Time: 2200 Vancomycin Dose Date: 02/19/19. Current Vancomycin Dose: [1 GM Q12H] Intermittent Dosing?: No Labs Labs Laboratory Tests 02/19/19 13:05 Red Blood Count 3.49 L, Mean Corpuscular Volume 88.5, Mean Corpuscular Hemoglobin 30.4, Mean Corpuscular Hemoglobin Concent 34.3, Red Cell Distribution Width 11.9, Neutrophils (%) (Auto) 85.3 H, Lymphocytes (%) (Auto) 2.1 L, Monocytes (%) (Auto) 11.0 H, Eosinophils (%) (Auto) 0.0, Basophils (%) (Auto) 0.2, Neutrophils # (Auto) 15.6 H, Lymphocytes # (Auto) 0.4 L, Monocytes # (Auto) 2.0 H, Eosinophils # (Auto) 0.0, Basophils # (Auto) 0.0 Micro Microbiology 02/19/19 Blood Culture, Received Pending 02/19/19 Blood Culture, Received Pending 02/19/19 Gastrointestinal Tract Panel (PCR) - Final, Complete 02/19/19 Urine Culture, Received Pending Creatinine Clearance Date:02/19/19. Creatinine Clearance: [69.8].CALCULATED USING ABW OF 92.95 KG Assessment and Plan Maintaining Current Dose?: Yes Reason for dose change: No Dose Change Pharmacist Note Pharmacist Note Date: 02/19/19. Pharmacist note:[id number] W/sepsis ;Receiving Pip/Tazo 4.5gm q6h and Vancomycin per pharmacy dosing(trough goal 15-20).Vancomycin 1 gram administered in ED@1900.Will order another 1 gram dose for 2200(total of 2 gram load, then will begin regimen of 1 gram IV [id number]. Trough is scheduled for 02/20@2100- prior to the 4th dose-will continue to follow [facility] Feb 19, 2019 22:02
[2019-02-19] MEDS: HEPARIN SOD (PORCINE) 5000 UNITS/ML VIAL SC SCH (23:35)
[2019-02-19] MEDS: VANCOMYCIN HCL 1,000 MG, VIAL MATE ADAPTER 1 EACH in D5W 250 ML IV SCH (23:36)
[2019-02-20] VITALS (9 sets, daily range): BP systolic 117–154; BP diastolic 62–82
[2019-02-20] MEDS ORDERED: PIPERACILLIN/TAZOBACTAM SOD 4.5 GM in D5W MINI-BAG PLUS 50 ML IV SCH ×2
[2019-02-20] MEDS: PIPERACILLIN/TAZOBACTAM SOD 4.5 GM in D5W MINI-BAG PLUS 50 ML IV SCH ×4 (01:41→18:00)
[2019-02-20] MEDS: ONDANSETRON 4MG/2ML VIAL (J2405) IV SCH ×7 (05:22→23:52)
[2019-02-20] MEDS: ACETAMINOPHEN TAB 650MG DOSE (2X325MG) PO PRN ×2 (05:22→23:40)
[2019-02-20 07:09] LABS: HEMATOCRIT 29.2 % (42.0-52.0); HEMOGLOBIN 9.9 g/dl (13.5-17.5); MEAN CORPUSCULAR HEMOGLOBIN 29.8 pg (27.0-33.0); MEAN CORPUSCULAR HGB CONC 33.9 g/dl (32.0-36.5); PLATELET COUNT, AUTOMATED 247 10^3/uL (150-450); RED BLOOD COUNT 3.32 10^6/uL (4.30-6.10); WHITE BLOOD COUNT 14.8 10^3/uL (4.0-10.0)
[2019-02-20 07:23] LABS: BLOOD UREA NITROGEN 12 MG/DL (7-18); CALCIUM LEVEL 7.7 MG/DL (8.8-10.2); CARBON DIOXIDE LEVEL 25 MEQ/L (21-32); CHLORIDE LEVEL 101 MEQ/L (98-107); CREATININE FOR GFR 1.25 MG/DL (0.70-1.30); GLOMERULAR FILTRATION RATE > 60.0 (>49); GLUCOSE, FASTING 181 MG/DL (70-100); POTASSIUM SERUM 3.5 MEQ/L (3.5-5.1); SODIUM LEVEL 133 MEQ/L (136-145)
--- NOTE | 2019-02-20 08:37 | REP ---
REASON FOR EXAM: Leukocytosis. COMPARISON: 02/02/2019 FINDINGS: The technique utilized in obtaining the radiograph has magnified the cardiac silhouette and accentuated the interstitial markings. The superior mediastinal structures are midline. The cardiac silhouette is unremarkable in size, shape, and position. The diaphragmatic surfaces of the lungs are regular, and the costophrenic angles are clear. The pulmonary butler are clear. The imaged osseous structures are intact. IMPRESSION: There is no acute cardiopulmonary disease. No change from the prior exam. Electronically Signed by Hugh Vides DO 02/20/2019 02:03 P
[2019-02-20] MEDS: HumaLOG INSULIN (NovoLOG) PER UNIT SC SCH ×4 (08:53→21:00)
[2019-02-20] MEDS: amLODIPine 10 MG TAB PO SCH (08:54)
[2019-02-20] MEDS: HEPARIN SOD (PORCINE) 5000 UNITS/ML VIAL SC SCH ×2 (08:54→23:50)
[2019-02-20] MEDS: FINASTERIDE 5 MG TAB PO SCH (08:54)
[2019-02-20] MEDS: TAMSULOSIN 0.4 MG CAP PO SCH (08:54)
[2019-02-20] MEDS: ATORVASTATIN 20 MG TAB PO SCH (08:54)
--- NOTE | 2019-02-20 09:12 | REP ---
REASON: Attention renal calculi, flank pain. COMPARISON: 02/04/2019 which showed bilateral renal stents. There is no change in the lung bases. Once again, the left-sided stent terminates proximal to the left ureterovesical junction, status quo. The right-sided stent is seen from renal pelvis to urinary bladder unchanged. Once again there is evidence of mild bilateral hydronephrosis. There is no evidence of a new intrarenal or intrarenal or intraureteral calculus. There are no urinary bladder calcifications. There are pelvic phleboliths unchanged. There is prostatomegaly unchanged. There is bilateral perinephric stranding unchanged. There is no change in the appearance of the solid intra-abdominal organs of the gallbladder. There is no change in the appearance of the pancreas or adrenal glands. No free fluid or free air within the abdomen or pelvis. There is no change in the appearance of the bowel loops or their mesenteries. There is no change in the appearance of the abdominal aorta or para-aortic regions. Chronic osseous changes are again noted status quo. IMPRESSION: There are no acute changes from 02/04/2019 with findings as described above. Electronically Signed by Hugh Vides DO 02/20/2019 02:05 P
[2019-02-20] MEDS: VANCOMYCIN HCL 1,000 MG, VIAL MATE ADAPTER 1 EACH in D5W 250 ML IV SCH ×2 (10:20→23:18)
--- NOTE | 2019-02-20 12:29 | IPNPDOC ---
Date Seen The patient was seen on 02/20/19. Progress Note SUBJECTIVE: Patient was seen and examined at the bedside this morning. npo for or this afternoon due to left stent which migrated superiorly. pt denies any pain. urine cx : pending sensitiivities. still on broad spectrum abx. s/p 4lites ivfluids with 2liters urine output and normal creatinine today. no c/o sob. OBJECTIVE: PHYSICAL EXAMINATION: VITALS PLS SEE BELOW GENERAL: Patient is awake, alert, oriented times three, laying in bed, no apparent distress. HEAD and NECK EXAM: Extraocular muscles intact. Pupils equally round and reactive to light. Mucous membranes are moist. Neck is supple. There is mild elevation of jugular venous distention (JVD). CARDIOVASCULAR: S1, S2, regular rate. Trace edema of the bilateral lower extremities. RESPIRATORY: Mildly decreased breath sounds at the bases. Mild amount of crepitations at the bases on deep inspiration. ABDOMEN: Soft, diminished tinkling bowel sounds bilaterally, nontender. GENITOURINARY: He has an indwelling Pedraza catheter. Urine in the bag is colored because of Pyridium that he is receiving. MUSCULOSKELETAL: No clubbing or cyanosis, pulses are 2+. CENTRAL NERVOUS SYSTEM (HEAD CONTROL CLERK): No focal deficit. Power is 5/5 in all extremities. LABORATORY REVIEW, IMAGING STUDIES, MICROBIOLOGY: PLS SEE BELOW 02/19/19 CT abd/pelvis:no change from previous. stent and mild b/l hydronephrosis. ASSESSMENT AND PLAN: Patient is a 68-year-old male with past medical history of nephrolithiasis with recent lithotripsy and stent placement this month and discharged on February 06, hypertension, hyperlipidemia, diabetes mellitus presented to ER with complaints of several days of feeling ill with fevers and chills. Patient reported he has been wrapped up in blanket due to chills and found to have a fever of over 104 Fahrenheit home. Since discharge from the hospital recently he also has had some looser stool but not diarrhea as well as urinary frequency, urgency, and mild back pain on the right side. Denies any dysuria or any other complaints. In ER, patient was found to be febrile up to 102 with leukocytosis and tachycardia. Of note, he was recently admitted and discharged for cystoscopy/lithotripsy/placement and replacement of R. ureteral stent and evacuation of clot by urology. Sepsis due to UTI on broad spectrum abx until urine cx returns ivfluids. UTI on broad spectrum abx until urine cx finalized on ivfluids with normal creatinine today Acute renal failure, resolved due to sepsis and bilateral obstructive uropathy. Renal function is improving s/p bilateral ureteral stent placement. Continue to encourage oral hydration. on broad spectrum abx until urine cx finalized. Obstructive uropathy with minimal b/l hydronephrosis/LEFT STENT MIGRATION FOR OR today. kept npo. urology consulted. 01/31: Cystoscopy, bilateral ureteroscopy, lithotripsy with basketing of left ureteral calculi with JJ stent placement, basketing of right ureteral calculi. 02/02: Cystoscopy, removal with replacement of right ureteral stent, and evacuation of clot. Urinary retention. Due to enlarge prostate He continues to have Pedraza catheter. Continue the Flomax and proscar. 01/31: Cystoscopy, bilateral ureteroscopy, lithotripsy with basketing of left ureteral calculi with JJ stent placement, basketing of right ureteral calculi. 02/02: Cystoscopy, removal with replacement of right ureteral stent, and evacuation of clot. Hypertension. Continue current dose of amlodipine 10 mg by mouth daily. DM2 consistent carbs diet hypoglycemic protocol SSI with coverage qac hs fingersticks Hyperlipidemia chronic resumed home meds. Enlarged prostate: on proscar and flomax. urologist consulted. Antibiotic-induced diarrhea GI panel negative bacid w meals while on abx. diet: consistent carbs dvt prophylaxis: compression stockings. disposition: pending clinical improvement 1-2 days. VS, I&O, 24H, [facility] Vital Signs/I&O Vital Signs Date Time Temp Pulse Resp B/P (MAP) Pulse Ox O2 Delivery O2 Flow Rate FiO2 02/20/19 10:00 97.5 99 20 120/62 (81) 95 02/19/19 20:59 Room Air I&O- Last 24 Hours up to 6 AM 02/20/19 06:00 Intake Total 4970 ml Output Total 2400 ml Balance 2570 ml Laboratory Data 24H LABS Laboratory Tests 2 02/19/19 13:05: Immature Granulocyte % (Auto) 1.4, White Blood Count 18.3H, Red Blood Count 3.49L, Hemoglobin 10.6L, Hematocrit 30.9L, Mean Corpuscular Volume 88.5, Mean Corpuscular Hemoglobin 30.4, Mean Corpuscular Hemoglobin Concent 34.3, Red Cell Distribution Width 11.9, Platelet Count 289, Neutrophils (%) (Auto) 85.3H, Lymphocytes (%) (Auto) 2.1L, Monocytes (%) (Auto) 11.0H, Eosinophils (%) (Auto) 0.0, Basophils (%) (Auto) 0.2, Neutrophils # (Auto) 15.6H, Lymphocytes # (Auto) 0.4L, Monocytes # (Auto) 2.0H, Eosinophils # (Auto) 0.0, Basophils # (Auto) 0.0, Nucleated Red Blood Cells % (auto) 0.0, Prothrombin Time 15.3H, Prothromb Time International Ratio 1.19, Activated Partial Thromboplast Time 34.5, Urine Appearance CLOUDYH, Urine Color YELLOW, Urine pH 5.0, Urine Specific [place] 1.009, Urine Protein 2+H, Urine Glucose (UA) 3+H, Urine Ketones NEGATIVE, Urine Urobilinogen 0.2, Urine Bilirubin NEGATIVE, Urine Leukocyte Esterase 1+H, Urine Blood 3+H, Urine Nitrite NEGATIVE, Urine WBC (Auto) 29H, Urine RBC (Auto) TNTCH, Urine Hyaline Casts (Auto) 0, Urine Bacteria (Auto) 1+H, Urine Squamous Epithelial Cells 0, Urine Mucus (Auto) SMALL, Urine Sperm (Auto) , Anion Gap 8, Glomerular Filtration Rate 56.1, Lactic Acid Level 1.3, Calcium Level 7.9L, Aspartate Amino Transf (AST/SGOT) 18, Alanine Aminotransferase (ALT/SGPT) 27, Alkaline Phosphatase 51, Total Bilirubin 0.9, Direct Bilirubin 0.3H, Total Creatine Kinase 48, Creatine Kinase MB < 1.0, Creatine Kinase MB Relative Index 2.08, Troponin I < 0.02, C-Reactive Protein, Quantitative 12.10H, Total Protein 6.4, Albumin 3.1L, Albumin/Globulin Ratio 0.94L, Amylase Level 16L, Influenza Type A (RT-PCR) NEGATIVE, Influenza Type B (RT-PCR) NEGATIVE 02/19/19 18:41: Bedside Glucose (Misc Panel) 159H 02/19/19 23:37: Bedside Glucose (Misc Panel) 219H 02/20/19 06:34: Nucleated Red Blood Cells % (auto) 0.0, Anion Gap 7L, Glomerular Filtration Rate > 60.0, Calcium Level 7.7L, Blood Urea Nitrogen 12, Creatinine 1.25, Sodium Level 133L, Potassium Level 3.5, Chloride Level 101, Carbon Dioxide Level 25 CBC/BMP Laboratory Tests 02/19/19 13:05 Red Blood Count 3.49 L, Mean Corpuscular Volume 88.5, Mean Corpuscular Hemoglobin 30.4, Mean Corpuscular Hemoglobin Concent 34.3, Red Cell Distribution Width 11.9, Neutrophils (%) (Auto) 85.3 H, Lymphocytes (%) (Auto) 2.1 L, Monocytes (%) (Auto) 11.0 H, Eosinophils (%) (Auto) 0.0, Basophils (%) (Auto) 0.2, Neutrophils # (Auto) 15.6 H, Lymphocytes # (Auto) 0.4 L, Monocytes # (Auto) 2.0 H, Eosinophils # (Auto) 0.0, Basophils # (Auto) 0.0 02/20/19 06:34 Red Blood Count 3.32 L, Mean Corpuscular Volume 88.0, Mean Corpuscular Hemoglobin 29.8, Mean Corpuscular Hemoglobin Concent 33.9, Red Cell Distribution Width 12.0, Calcium Level 7.7 L Microbiology Microbiology 02/19/19 Blood Culture, Received Pending 02/19/19 Blood Culture, Received Pending 02/19/19 Gastrointestinal Tract Panel (PCR) - Final, Complete 02/19/19 Urine Culture, Received Pending BHUPINDER SAUNDERS MD Feb 20, 2019 10:55
[2019-02-20] MEDS: LACTOBACILLUS ACIDOPHILUS CAP (BACID) PO SCH ×2 (12:30→18:00)
[2019-02-20] MEDS ORDERED: CONRAY-60 60% 50ML VIAL (Q9961) As Ordered ONE ×2 (14:22→17:55)
--- NOTE | 2019-02-20 15:03 | CR ---
DATE OF CONSULTATION: 02/20/2019 CHIEF COMPLAINT OF THE PATIENT: Was fever and chills. HISTORY OF PRESENT ILLNESS: Mr. Deshpande is a 68-year-old gentleman who was admitted to the hospital with the history of high-grade fever and chills for the last few days. His maximum temperature (Tmax) was 104. The apparent reason for fever and chills was that he has had a history of bilateral stones, and he underwent ureteroscopic manipulation and lithotripsy done for these stones, and stone basketing was also performed from the left ureter, as well as from the right ureter with double-J stent placement. The patient did well after the procedure, but then he started to have fever and chills for the last several days, and yesterday his fever was very high with chills. So, he was admitted to the hospital , so apparently, this patient is developing urosepsis His past medical history is significant for diabetes mellitus and hypertension The medication he takes include amlodipine, atorvastatin, finasteride, metformin, sitagliptin, and tamsulosin. He is allergic to SULFA. On physical examination, he is alert, awake, oriented times three. His maximum temperature (Tmax) was 101 today with a pulse of 127 and a blood pressure of 127/64. Neck is soft, supple, nontender. Chest is normal. Lungs are clear. Abdomen is soft, nondistended, nontender. There was mild tenderness in the left flank. Suprapubic region had mild tenderness. There was a Pedraza in place draining cloudy urine. He moves all four extremities. There is no focal neurological deficit. His white cell count was 18.3, hemoglobin of 10, and hematocrit of 30.9, with a platelet of 289. His sodium was 129, potassium of 3.7, bicarbonate of 26, and creatinine of 1.35. His CT scan was done, which was reviewed, and it shows that he has bilateral double-J stents in place, but the left double-J stent has migrated upwards and was curled in the lower ureter. IMPRESSION: 1. Urosepsis. 2. Diabetes. PLAN: It seems that the underlying cause of his urosepsis was the migrated stent, which does not allow the left kidney to drain well, and for which reason there is some perinephric stranding in the left kidney, and he has been having fever of 104. After the drainage of the bladder to decompress the urinary system, his fever has settled down, but until the time the stent is positioned in the right place, along with antibiotics, his sepsis will not resolve. I discussed at length with the patient, and we will plan to do a cystoscopy, ureteroscopy today to pull his stent back and reposition it into the bladder so that his sepsis will resolve. After that, will continue with the broad-spectrum antibiotics and Pedraza catheter drainage for the next couple of days until the time the sepsis resolves, and then we will probably keep him on some prophylactic antibiotics until the time his time for stent removal is there and sepsis is completely resolved. THOR
[2019-02-20] MEDS ORDERED: dexameTHASONE 4 MG/ML 1ML VIAL (J1100) As Ordered ONE (18:33)
[2019-02-20] MEDS ORDERED: fentaNYL 100 MCG/2 ML INJECTION (J3010) As Ordered ONE (18:33)
[2019-02-20] MEDS ORDERED: PROPOFOL 200 MG/20 ML VIAL As Ordered ONE ×2 (18:33→19:21)
[2019-02-20] MEDS ORDERED: MIDAZOLAM INJ 2 MG/2 ML VIAL (J2250) As Ordered ONE (18:33)
[2019-02-20] MEDS ORDERED: ONDANSETRON 4MG/2ML VIAL (J2405) As Ordered ONE (18:33)
[2019-02-20] MEDS ORDERED: ZOSYN 2.25 GM VIAL (J2543) As Ordered ONE (18:35)
[2019-02-20] MEDS ORDERED: FUROSEMIDE 100 MG/10 ML VIAL (J1940) As Ordered ONE (19:29)
[2019-02-20] MEDS ORDERED: LIDOCAINE 2% INJ 100 MG/5 ML SDV (FOR ANES.) As Ordered ONE (19:37)
[2019-02-20] MEDS ORDERED: LR 1,000 ML IV SCH (20:15)
[2019-02-20] MEDS ORDERED: fentaNYL 100 MCG/2 ML INJECTION (J3010) IV PRN (20:15)
[2019-02-20] MEDS ORDERED: ONDANSETRON 4MG/2ML VIAL (J2405) IV PRN (20:15)
[2019-02-20] MEDS ORDERED: PERCOCET 5MG/325MG TAB PO PRN (20:15)
--- NOTE | 2019-02-20 21:39 | PHACANCOPD ---
PHARMACY VANCOMYCIN DOSING Pt Demographics Demographics Patient Age:68 , Weight:110.200 , Gender: male Adjusted Body Weight Date: 02/19/19, Adjusted Body Weight: [93] Kg Events Past 24 Hours Events Past 24 Hours: NO: Dialysis, Diuretic Therapy, Change in CrCl, Fever, Elevation in WBC, Pending Diagnostics, Pending Procedures, Other Vancomycin Vancomycin indication: SEPSIS Vancomycin Target Ranges: 15-20 mcg/ml Vancomycin Load Y/N: Yes Load Dose Date Time Vancomycin Load Dose: 2GM Date: 02/19 Time: 2200 Vancomycin Dose Date: 02/19/19. Current Vancomycin Dose: [1 GM Q12H] Intermittent Dosing?: No Labs Labs Item Value Date Time White Blood Count 14.8 10^3/uL H 02/20/1934 Creatinine 1.25 MG/DL 02/20/19633 Blood Urea Nitrogen 12 MG/DL 02/20/1934 Glomerular Filtration Rate > 60.0 02/20/1934 Vancomycin Level Trough 9.9 UG/ML L 02/20/192046 Vital Signs Label Value Date Time Patient Temperature 99.1 degrees F 02/20/192012 Temperature Source Skin 02/20/192012 Micro Microbiology 02/19/19 Blood Culture - Preliminary, Resulted No growth after 24 hours . All specim... 02/19/19 Blood Culture - Preliminary, Resulted No growth after 24 hours . All specim... 02/19/19 Gastrointestinal Tract Panel (PCR) - Final, Complete 02/19/19 Urine Culture, Received Pending Creatinine Clearance Date:02/20/19. Creatinine Clearance: [66]. Pending Labs Trough 04-23 @1300 Assessment and Plan Maintaining Current Dose?: No Reason for dose change: Trough too low Pharmacist Note Pharmacist Note Date: 02/20/19. Pharmacist note:Trough of 9.9 is below target range. Dose increased to 1000mg q8h. Will continue to monitor and make adjustments as needed. GARRETT RANDHAWA PHARMACY Feb 20, 2019 21:39
[2019-02-20] MEDS ORDERED: PENTOSAN POLYSULFATE SODIUM 100 MG CAP (ELMIRON) PO ONE (22:30)
[2019-02-20] MEDS: NS 0.45% 1,000 ML IV SCH (23:20)
[2019-02-21] VITALS (7 sets, daily range): BP systolic 107–130; BP diastolic 63–68
[2019-02-21] MEDS: PIPERACILLIN/TAZOBACTAM SOD 4.5 GM in D5W MINI-BAG PLUS 50 ML IV SCH ×4 (01:25→17:24)
[2019-02-21] MEDS: ONDANSETRON 4MG/2ML VIAL (J2405) IV SCH ×5 (06:05→20:00)
[2019-02-21] MEDS: VANCOMYCIN HCL 1,000 MG, VIAL MATE ADAPTER 1 EACH in D5W 250 ML IV SCH ×3 (06:05→21:47)
[2019-02-21] MEDS: ACETAMINOPHEN TAB 650MG DOSE (2X325MG) PO PRN (06:05)
[2019-02-21] MEDS: NS 0.45% 1,000 ML IV SCH ×2 (06:15→14:37)
[2019-02-21 06:35] LABS: HEMATOCRIT 29.4 % (42.0-52.0); HEMOGLOBIN 9.9 g/dl (13.5-17.5); MEAN CORPUSCULAR HEMOGLOBIN 30.1 pg (27.0-33.0); MEAN CORPUSCULAR HGB CONC 33.7 g/dl (32.0-36.5); MEAN CORPUSCULAR VOLUME 89.4 fl (80.0-96.0); PLATELET COUNT, AUTOMATED 240 10^3/uL (150-450); RED BLOOD COUNT 3.29 10^6/uL (4.30-6.10); WHITE BLOOD COUNT 10.4 10^3/uL (4.0-10.0)
[2019-02-21 07:02] LABS: BLOOD UREA NITROGEN 14 MG/DL (7-18); CALCIUM LEVEL 7.8 MG/DL (8.8-10.2); CARBON DIOXIDE LEVEL 27 MEQ/L (21-32); CHLORIDE LEVEL 99 MEQ/L (98-107); CREATININE FOR GFR 1.23 MG/DL (0.70-1.30); GLOMERULAR FILTRATION RATE > 60.0 (>49); GLUCOSE, FASTING 273 MG/DL (70-100); POTASSIUM SERUM 3.9 MEQ/L (3.5-5.1); SODIUM LEVEL 134 MEQ/L (136-145)
--- NOTE | 2019-02-21 07:06 | REP ---
C-ARM VIEWS DURING RETROGRADE PYELOGRAM: Two C-ARM views are performed. The first image shows a right ureteral stent as well as a left ureteral stent. There is contrast in the mildly dilated left pelvicaliceal system with extraluminal contrast adjacent to the lower pole of the left kidney and proximal left ureter. Second image shows similar findings. 45 seconds of fluoroscopic time was utilized. Electronically Signed by Alton Nogueira MD 02/22/2019 10:01 A
[2019-02-21] MEDS: LACTOBACILLUS ACIDOPHILUS CAP (BACID) PO SCH ×3 (08:16→17:24)
[2019-02-21] MEDS: HEPARIN SOD (PORCINE) 5000 UNITS/ML VIAL SC SCH ×2 (08:17→21:47)
[2019-02-21] MEDS: HumaLOG INSULIN (NovoLOG) PER UNIT SC SCH ×4 (08:17→21:46)
[2019-02-21] MEDS: amLODIPine 10 MG TAB PO SCH (08:17)
[2019-02-21] MEDS: TAMSULOSIN 0.4 MG CAP PO SCH (08:17)
[2019-02-21] MEDS: FINASTERIDE 5 MG TAB PO SCH (08:18)
[2019-02-21] MEDS: ATORVASTATIN 20 MG TAB PO SCH (08:18)
--- NOTE | 2019-02-21 09:46 | RO ---
DATE OF PROCEDURE: 02/20/2019 PREOPERATIVE DIAGNOSES: Urosepsis with left upward migrated JJ stent. FINAL DIAGNOSES: Urosepsis with left upward migrated JJ stent. OPERATION PERFORMED: Cystoscopy, left ureteroscopy, removal of the old JJ stent and insertion of a new JJ stent. SENIOR COMPUTER SPECIALIST: ANESTHESIA USED: General anesthesia. INDICATION FOR THE PROCEDURE: Mr. Deshpande is a 68-year-old diabetic male, who was admitted in the hospital with high-grade fever and chills. The fever had gone up to 104. He had a history of bilateral ureteroscopy, stone manipulation with bilateral JJ stent placement. He was admitted to the hospital. Intravenous (IV) antibiotics were given. A CT scan was done which showed a left JJ stent to be in left lower ureter instead of all the way to the bladder so, apparently, the stent had migrated upwards. The right JJ stent was in position. Because of this, the left kidney was not draining well, and that led to the urosepsis. Patient was treated with IV antibiotics, IV fluid, and a Pedraza catheter drainage. His fever had come from 104 to 101. He was brought to the operating room (OR) to reposition the JJ stent so the left kidney can drain and sepsis can resolve. DESCRIPTION OF PROCEDURE: After the informed consent, patient was prepped and draped in dorsal lithotomy position under general anesthesia. Using a 21-Czech rigid cystoscope, cystourethroscopy was performed. Right JJ stent was in the bladder with some minimal encrustation over the lower end of the JJ stent. The left JJ stent could not be visualized in the bladder as expected. Left ureteral orifice was intubated with 0.038 Glidewire, and the Glidewire was advanced all the way up into the kidney. Using a rigid ureteroscope, the ureteroscopy was performed. The lower edge of the stent was grabbed and was brought out; however, while this was being done, the stent came out totally, so retrograde ureteropyelogram was obtained using #6-Czech open-ended catheter to outline the system and a Czech 28-32 #6-Czech JJ stent was placed with good curl in the kidney and good curl in the bladder. A #16-Czech Pedraza catheter was placed. Patient tolerated the procedure very well and was transferred out of the operating room in satisfactory condition. [facility]
--- NOTE | 2019-02-21 14:13 | IPN ---
DATE: 02/21/2019 Patient has a history of urosepsis and underwent repositioning of left JJ stent yesterday in the operating room using urethroscopy. The patient this morning feels much better. He has been afebrile with stable vital signs. His fever that started at 104, down to 101 and has now become totally afebrile. He does not have any major complaints. Denies any nausea, vomiting, suprapubic or flank pain. The chest is normal. Lungs are clear. Abdomen is soft, nondistended, nontender. No suprapubic tenderness. No flank tenderness. Pedraza is in place, draining slightly blood tinged urine. He moves all four extremities and there is no focal neurological deficit. He has adequate urine output. His white cell count has come down from 14.8 to 10.4, and his hemoglobin is stable at 9.9, platelets of 240. His creatinine is 1.23 today. IMPRESSION: Urosepsis with migrated JJ stent with a Pedraza catheter in place. Discussed with the hospitalist. PLAN: Patient can be discharged today or tomorrow with oral levofloxacin 500 mg once a day and leave the Pedraza catheter which an be removed in the office, and at that time his stents can also be removed next week as the patient's stones have all been taken care of and his sepsis will be under control at that time.
--- NOTE | 2019-02-21 14:58 | PHACANCOPD ---
PHARMACY VANCOMYCIN DOSING Pt Demographics Demographics Patient Age:68 , Weight:110.200 , Gender: male Adjusted Body Weight Date: 02/19/19, Adjusted Body Weight: [93] Kg Vancomycin Vancomycin indication: SEPSIS Vancomycin Target Ranges: 15-20 mcg/ml Vancomycin Load Y/N: Yes Load Dose Date Time Vancomycin Load Dose: 2GM Date: 02/19 Time: 2200 Vancomycin Dose Date: 02/19/19. Current Vancomycin Dose: [1 GM Q12H] Intermittent Dosing?: No Labs Micro Microbiology 02/19/19 Blood Culture - Preliminary, Resulted No Growth after 48 hours. All Specime... 02/19/19 Blood Culture - Preliminary, Resulted No Growth after 48 hours. All Specime... 02/19/19 Gastrointestinal Tract Panel (PCR) - Final, Complete 02/19/19 Urine Culture - Final, Complete Staphylococcus Warneri Creatinine Clearance Date:02/20/19. Creatinine Clearance: [66]. Pending Labs Trough 04-23 @1300 Assessment and Plan Maintaining Current Dose?: Yes Reason for dose change: No Dose Change Pharmacist Note Pharmacist Note 02/21/19: Trough level today resulted at 15.5mcg/ml. Scr remains stable today at 1.23 from 1.25 yesterday, as does BUN. We will continue the patient on his current regimen of 1g IV Q8H, and schedule a follow-up trough as needed. Date: 02/20/19. Pharmacist note:Trough of 9.9 is below target range. Dose increased to 1000mg q8h. Will continue to monitor and make adjustments as needed. DWAYNE CORONADO PHARMACY Feb 21, 2019 14:58
--- NOTE | 2019-02-21 21:29 | IPNPDOC ---
Date Seen The patient was seen on 02/21/19. Progress Note SUBJECTIVE: Patient status post cystoscopy and ureteroscopy to pull back extent and currently on antibiotic. Status post evaluation by urology today for recommended follow-up as outpatient with Dr. Gonzalez next week. Urology recommended discharging patient on by mouth Levaquin and Pedraza (will not require 3-4 more days of Pedraza) until patient can be seen by Dr. Gonzalez next week. Urology okay with patient being discharged tomorrow if stable. Patient and family agreeable. OBJECTIVE: PHYSICAL EXAMINATION: VITALS PLS SEE BELOW GENERAL: Patient is awake, alert, oriented times three, no apparent distress. HEENT: PERRLA, mucous moist, trachea without deviation CARDIOVASCULAR: S1, S2, regular rate. RESPIRATORY: Equal air entry, decreased breath sounds ABDOMEN: Soft, nontender GENITOURINARY: He has an indwelling Pedraza catheter. MUSCULOSKELETAL: No clubbing or cyanosis, pulses are 2+. CENTRAL NERVOUS SYSTEM (CLIENT TECHNOLOGIES ANALYST): No focal deficit. Psychiatry: Normal mood and affect LABORATORY REVIEW, IMAGING STUDIES, MICROBIOLOGY: PLS SEE BELOW 02/19/19 CT abd/pelvis:no change from previous. stent and mild b/l hydronephrosis. ASSESSMENT AND PLAN: Patient is a 68-year-old male with past medical history of nephrolithiasis with recent lithotripsy and stent placement this month and discharged on February 06, hypertension, hyperlipidemia, diabetes mellitus presented to ER with complaints of several days of feeling ill with fevers and chills. Patient reported he has been wrapped up in blanket due to chills and found to have a fever of over 104 Fahrenheit home. Since discharge from the hospital recently he also has had some looser stool but not diarrhea as well as urinary frequency, urgency, and mild back pain on the right side. Denies any dysuria or any other complaints. In ER, patient was found to be febrile up to 102 with leukocytosis and tachycardia. Of note, he was recently admitted and discharged for cystoscopy/lithotripsy/placement and replacement of R. ureteral stent and evacuation of clot by urology. Sepsis due to UTI on broad spectrum abx until urine cx returns ivfluids. Status post Cystoscopy, left ureteroscopy, removal of the old JJ stent and insertion of a new JJ stent. 02/20/[address] Bhardwaj urologu rec:oral levofloxacin 500 mg day and leave the Pedraza catheter which an be removed in the office, and at that time his stents can also be removed next week with dr. Gonzalez. UTI on broad spectrum abx until urine cx finalized normal creatinine today Acute renal failure, resolved due to sepsis and bilateral obstructive uropathy. Renal function is improving s/p bilateral ureteral stent placement. on broad spectrum abx until urine cx finalized. Obstructive uropathy with minimal b/l hydronephrosis/LEFT STENT MIGRATION FOR OR today. kept npo. urology consulted. 01/31: Cystoscopy, bilateral ureteroscopy, lithotripsy with basketing of left ureteral calculi with JJ stent placement, basketing of right ureteral calculi. 02/02: Cystoscopy, removal with replacement of right ureteral stent, and evacuation of clot. Urinary retention. Due to enlarge prostate He continues to have Pedraza catheter. Continue the Flomax and proscar. 01/31: Cystoscopy, bilateral ureteroscopy, lithotripsy with basketing of left ureteral calculi with JJ stent placement, basketing of right ureteral calculi. 02/02: Cystoscopy, removal with replacement of right ureteral stent, and evacuation of clot. Hypertension. Continue current dose of amlodipine 10 mg by mouth daily. DM2 consistent carbs diet hypoglycemic protocol SSI with coverage qac hs fingersticks Hyperlipidemia chronic resumed home meds. Enlarged prostate: on proscar and flomax. urologist consulted. Antibiotic-induced diarrhea GI panel negative bacid w meals while on abx. diet: consistent carbs dvt prophylaxis: compression stockings. Anticipate discharge tomorrow if stable VS, I&O, 24H, Fishbone Vital Signs/I&O Vital Signs Date Time Temp Pulse Resp B/P (MAP) Pulse Ox O2 Delivery O2 Flow Rate FiO2 02/21/19 18:00 97.7 70 18 128/66 (86) 99 02/21/19 06:00 2.0 02/19/19 20:59 Room Air I&O- Last 24 Hours up to 6 AM 02/21/19 06:00 Intake Total 1170 ml Output Total 2675 ml Balance -1505 ml Laboratory Data 24H LABS Laboratory Tests 2 02/21/19 06:19: Nucleated Red Blood Cells % (auto) 0.0, Anion Gap 8, Glomerular Filtration Rate > 60.0, Blood Urea Nitrogen 14, Creatinine 1.23, Sodium Level 134L, Potassium Level 3.9, Chloride Level 99, Carbon Dioxide Level 27, Calcium Level 7.8L 02/21/19 11:15: Bedside Glucose (Misc Panel) 256H 02/21/19 12:57: Vancomycin Level Trough 15.5 02/21/19 16:27: Bedside Glucose (Misc Panel) 291H 02/21/19 20:37: Bedside Glucose (Misc Panel) 254H CBC/BMP Laboratory Tests 02/21/19 06:19 Red Blood Count 3.29 L, Mean Corpuscular Volume 89.4, Mean Corpuscular Hemoglobin 30.1, Mean Corpuscular Hemoglobin Concent 33.7, Red Cell Distribution Width 12.0, Calcium Level 7.8 L Microbiology Microbiology 02/19/19 Blood Culture - Preliminary, Resulted No Growth after 48 hours. All Specime... 02/19/19 Blood Culture - Preliminary, Resulted No Growth after 48 hours. All Specime... 02/19/19 Gastrointestinal Tract Panel (PCR) - Final, Complete 02/19/19 Urine Culture - Final, Complete Staphylococcus Warneri JACINTA URBANO MD Feb 21, 2019 21:29
[2019-02-22] MEDS: PIPERACILLIN/TAZOBACTAM SOD 4.5 GM in D5W MINI-BAG PLUS 50 ML IV SCH ×3 (00:04→12:00)
[2019-02-22 02:00] VITALS: BP 120/70
[2019-02-22] MEDS: ACETAMINOPHEN TAB 650MG DOSE (2X325MG) PO PRN (03:07)
[2019-02-22] MEDS: ONDANSETRON 4MG/2ML VIAL (J2405) IV SCH ×4 (04:00→12:00)
[2019-02-22 06:00] VITALS: BP 136/71
[2019-02-22 06:13] LABS: HEMOGLOBIN 9.1 g/dl (13.5-17.5); MEAN CORPUSCULAR HEMOGLOBIN 30.1 pg (27.0-33.0); MEAN CORPUSCULAR HGB CONC 33.7 g/dl (32.0-36.5); MEAN CORPUSCULAR VOLUME 89.4 fl (80.0-96.0); PLATELET COUNT, AUTOMATED 242 10^3/uL (150-450); RED BLOOD COUNT 3.02 10^6/uL (4.30-6.10); WHITE BLOOD COUNT 7.5 10^3/uL (4.0-10.0)
[2019-02-22 06:37] LABS: BLOOD UREA NITROGEN 15 MG/DL (7-18); CALCIUM LEVEL 7.8 MG/DL (8.8-10.2); CARBON DIOXIDE LEVEL 28 MEQ/L (21-32); CHLORIDE LEVEL 101 MEQ/L (98-107); CREATININE FOR GFR 1.19 MG/DL (0.70-1.30); GLOMERULAR FILTRATION RATE > 60.0 (>49); GLUCOSE, FASTING 232 MG/DL (70-100); POTASSIUM SERUM 3.4 MEQ/L (3.5-5.1); SODIUM LEVEL 136 MEQ/L (136-145)
[2019-02-22] MEDS: VANCOMYCIN HCL 1,000 MG, VIAL MATE ADAPTER 1 EACH in D5W 250 ML IV SCH (06:43)
[2019-02-22] MEDS: NS 0.45% 1,000 ML IV SCH (06:44)
[2019-02-22 08:12] VITALS: BP 136/71
[2019-02-22] MEDS: ATORVASTATIN 20 MG TAB PO SCH (08:12)
[2019-02-22] MEDS: amLODIPine 10 MG TAB PO SCH (08:12)
[2019-02-22] MEDS: LACTOBACILLUS ACIDOPHILUS CAP (BACID) PO SCH ×2 (08:12→12:52)
[2019-02-22] MEDS: FINASTERIDE 5 MG TAB PO SCH (08:12)
[2019-02-22] MEDS: TAMSULOSIN 0.4 MG CAP PO SCH (08:12)
[2019-02-22] MEDS: HEPARIN SOD (PORCINE) 5000 UNITS/ML VIAL SC SCH (08:12)
[2019-02-22] MEDS: HumaLOG INSULIN (NovoLOG) PER UNIT SC SCH ×2 (08:13→12:52)
[2019-02-22] MEDS ORDERED: POTASSIUM CHLORIDE 10 MEQ SR TABLET PO ONE (08:15)
[2019-02-22 10:00] VITALS: BP 120/67
[2019-02-22] MEDS ORDERED: CEFD300CAP PO (12:30)
--- NOTE | 2019-02-22 12:51 | DS.PDOC ---
Discharge Summary General Date of Admission Feb 19, 2019 at 15:39 Date of Discharge 02/22/19 Discharge Summary PROCEDURES PERFORMED DURING STAY: [None]. ADMITTING DIAGNOSES: Sepsis secondary due to Staphylococcus warneri UTI and acute renal failure, resolved Obstructive uropathy with stent migration left Urinary retention Hypertension diabetes Hyperlipidemia BPH Diarrhea DISCHARGE DIAGNOSES: Sepsis secondary due to Staphylococcus warneri UTI and acute renal failure, resolved Obstructive uropathy with stent migration left Urinary retention Hypertension diabetes Hyperlipidemia BPH Diarrhea COMPLICATIONS/CHIEF COMPLAINT: Diabetes Mellitus Hyperlipidemia Hypertension Uti. HISTORY OF PRESENT ILLNESS: [Patient is a 68-year-old male with past medical history of nephrolithiasis with recent lithotripsy and stent placement this month and discharged on February 06, hypertension, hyperlipidemia, diabetes mellitus presented to ER with complaints of several days of feeling ill with fevers and chills. Patient reported he has been wrapped up in blanket due to chills and found to have a fever of over 104 Fahrenheit home. Since discharge from the hospital recently he also has had some looser stool but not diarrhea as well as urinary frequency, urgency, and mild back pain on the right side. Denies any dysuria or any other complaints. In ER, patient was found to be febrile up to 102 with leukocytosis and tachycardia. Of note, he was recently admitted and discharged for cystoscopy/lithotripsy/placement and replacement of R. ureteral stent and evacuation of clot by urology. HOSPITAL COURSE: [68-year-old gentleman treated for sepsis due to UTI from Staphylococcus warneri resistance to quinolone but sensitive to penicillin and cephalosporin. Patient was started on broad-spectrum antibiotic and urology consulted. Status post surgical manipulation by urology and improvement of patient's clinical status. Patient culture return resistant to quinolone therefore patient will be discharged home with cephalosporin. As per urology recommends Pedraza to be continued and antibiotic to be given until patient seen by Dr. Gonzalez as outpatient next week. Advised following up with PCP as outpatient within 1 week and following up with Dr. Gonzalez as outpatient early next week to have Pedraza removal, cessation of antibiotic, and removal of stent possibly. Sepsis due to UTI on broad spectrum abx, urine cx Staphylococcus warneri resistance to quinolone but sensitive to penicillin and cephalosporin. Spoke to pharmacy for sensitivity confirmation ivfluids. Status post Cystoscopy, left ureteroscopy, removal of the old JJ stent and insertion of a new JJ stent. 02/20/[address] Bhardwaj urologu rec:oral levofloxacin 500 mg day and leave the Pedraza catheter which an be removed in the office, and at that time his stents can also be removed next week with dr. Gonzalez. But due to culture resistance to quinolone agent will be discharged home on cephalosporin according to sensitivity of the organism. Acute renal failure, resolved due to sepsis and bilateral obstructive uropathy. Renal function is improving s/p bilateral ureteral stent placement and adjustment. Obstructive uropathy with minimal b/l hydronephrosis/LEFT STENT MIGRATION Status post Cystoscopy, left ureteroscopy, removal of the old JJ stent and insertion of a new JJ stent. 02/20/[address] Bhardwaj 4/2: Cystoscopy, bilateral ureteroscopy, lithotripsy with basketing of left ureteral calculi with JJ stent placement, basketing of right ureteral calculi. 4/4: Cystoscopy, removal with replacement of right ureteral stent, and ev acuation of clot. Urinary retention. Due to enlarge prostate He continues to have Pedraza catheter. Continue the Flomax and proscar. 4/2: Cystoscopy, bilateral ureteroscopy, lithotripsy with basketing of left ureteral calculi with JJ stent placement, basketing of right ureteral calculi. 4/4: Cystoscopy, removal with replacement of right ureteral stent, and evacuation of clot. Hypertension. Continue current dose of amlodipine 10 mg by mouth daily. DM2 Renal function back to normal, resume home regimen Hyperlipidemia chronic resumed home meds. Enlarged prostate: on proscar and flomax. Please follow-up with urology as outpatient Antibiotic-induced diarrhea GI panel negative bacid w meals while on abx. Patient tolerated ambulation without weakness and will be discharged home today. Patient agrees with the plans mentioned above. ]. DISCHARGE MEDICATIONS: Please see below. ALLERGIES: Please see below. PHYSICAL EXAMINATION ON DISCHARGE: VITAL SIGNS: Please see below. GENERAL: HEENT: NECK: CARDIOVASCULAR EXAMINATION: RESPIRATORY EXAMINATION: ABDOMINAL EXAMINATION: EXTREMITIES: SKIN: NEUROLOGICAL EXAMINATION: PSYCHIATRIC EXAMINATION: LABORATORY DATA: Please see below. IMAGING: PROGNOSIS: ACTIVITY: [As tolerated]. DIET: DISCHARGE PLAN: DISPOSITION: . DISCHARGE INSTRUCTIONS: 1. . ITEMS TO FOLLOWUP ON ON OUTPATIENT: 1. . DISCHARGE CONDITION: [Stable]. TIME SPENT ON DISCHARGE: Greater than minutes. Vital Signs/I&Os Vital Signs Date Time Temp Pulse Resp B/P (MAP) Pulse Ox O2 Delivery O2 Flow Rate FiO2 02/22/19 10:00 97.1 65 18 120/67 (84) 96 02/21/19 06:00 2.0 02/19/19 20:59 Room Air I&O- Last 24 Hours up to 6 AM 02/22/19 06:00 Intake Total 5340 ml Output Total 1950 ml Balance 3390 ml Laboratory Data Labs 24H Laboratory Tests 2 02/21/19 12:57: Vancomycin Level Trough 15.5 02/21/19 16:27: Bedside Glucose (Misc Panel) 291H 02/21/19 20:37: Bedside Glucose (Misc Panel) 254H 02/22/19 05:36: Nucleated Red Blood Cells % (auto) 0.0, Anion Gap 7L, Glomerular Filtration Rate > 60.0, Blood Urea Nitrogen 15, Creatinine 1.19, Sodium Level 136, Potassium Level 3.4L, Chloride Level 101, Carbon Dioxide Level 28, Calcium Level 7.8L 02/22/19 05:56: Bedside Glucose (Misc Panel) 225H CBC/BMP Laboratory Tests 02/22/19 05:36 Red Blood Count 3.02 L, Mean Corpuscular Volume 89.4, Mean Corpuscular Hemoglobin 30.1, Mean Corpuscular Hemoglobin Concent 33.7, Red Cell Distribution Width 12.1, Calcium Level 7.8 L FSBS Laboratory Tests Test 02/21/19 16:27 02/21/19 20:37 02/22/19 05:56 Range/Units Bedside Glucose (Misc Panel) 291 254 225 80-115 MG/DL Microbiology Microbiology 02/19/19 Blood Culture - Preliminary, Resulted No Growth after 48 hours. All Specime... 02/19/19 Blood Culture - Preliminary, Resulted No Growth after 48 hours. All Specime... 02/19/19 Gastrointestinal Tract Panel (PCR) - Final, Complete 02/19/19 Urine Culture - Final, Complete Staphylococcus Warneri Discharge Medications Scheduled Amlodipine Besylate (Amlodipine Besylate) 10 Mg Tab, 10 MG PO DAILY Atorvastatin Calcium (Atorvastatin Calcium) 40 Mg Tab, 40 MG PO DAILY, (Reported) Cefdinir (Cefdinir) 300 Mg Capsule, 300 MG PO BID Finasteride (Finasteride) 5 Mg Tablet, 5 MG PO DAILY, (Reported) Metformin HCl (Metformin HCl) 500 Mg Tablet, 500 MG PO BID, (Reported) Sitagliptin Phosphate (Januvia) 100 Mg Tab, 100 MG PO DAILY, (Reported) Tamsulosin HCl (Flomax) 0.4 Mg Cap, 0.4 MG PO DAILY, (Reported) Scheduled PRN Oxybutynin Chloride (Oxybutynin Chloride) 5 Mg Tablet, 5 MG PO Q8H PRN for BLADDER SPASM, (Reported) Allergies Coded Allergies: Sulfa (Sulfonamide Antibiotics) (Unverified Allergy, Unknown, FAMILY HISTORY, WOULD LIKE TO AVOID, 01/31/19) JACINTA URBANO MD Feb 22, 2019 12:51
== END 2019-02-22 14:53 | disposition home or self-care (01) | DRG 659 ==
LOC: M ED 11:51 → M ED INP 15:39 → M MSPAV 21:28
PROVIDERS: ADMIT Student in an Organized Health Care Education/Training Program; ATTEND Internal Medicine
PROC: 0TP98DZ Removal of Intraluminal Device from Ureter, Via Natural or Artificial Opening Endoscopic (ICD-10-PCS; 2019-02-20)
PROC: 0T778DZ Dilation of Left Ureter with Intraluminal Device, Via Natural or Artificial Opening Endoscopic (ICD-10-PCS; principal; 2019-02-20 11:45)
DX: T83.122A Displacement of indwelling ureteral stent, initial encounter (principal); A41.1 Sepsis due to other specified staphylococcus; T81.40XA Infection following a procedure, unspecified, initial encounter; N17.9 Acute kidney failure, unspecified; N13.6 Pyonephrosis; N39.0 Urinary tract infection, site not specified; I10 Essential (primary) hypertension; E78.5 Hyperlipidemia, unspecified; E11.9 Type 2 diabetes mellitus without complications; N40.0 Benign prostatic hyperplasia without lower urinary tract symptoms; R19.7 Diarrhea, unspecified; Z79.899 Other long term (current) drug therapy; Z88.2 Allergy status to sulfonamides; Y83.1 Surgical operation with implant of artificial internal device as the cause of abnormal reaction of the patient, or of later complication, without mention of misadventure at the time of the procedure

== ENCOUNTER → 2019-03-14 | Outpatient (REF) | payer MEDICARE, OTHER ==
[~2019-03-14] MED LIST changes: +CEFD300CAP PO; +FINA5TAB2 PO; +OXYB5TAB10 PO
[2019-03-14 19:26] LABS: APPEARANCE, URINE HAZY (CLEAR); BACTERIA, URINE AUTO NEGATIVE (NEGATIVE); BILIRUBIN, URINE AUTO NEGATIVE (NEGATIVE); BLOOD, URINE BLOOD NEGATIVE (NEGATIVE); COLOR, URINE YELLOW (YELLOW); GLUCOSE, URINE (UA) AUTO 3+ mg/dL (NEGATIVE); KETONE, URINE AUTO NEGATIVE (NEGATIVE); LEUKOCYTE ESTERASE, URINE AUTO NEGATIVE (NEGATIVE); MUCUS, URINE SMALL (NEGATIVE); NITRITE, URINE AUTO NEGATIVE (NEGATIVE); PROTEIN, URINE AUTO NEGATIVE (NEGATIVE); RBC, URINE AUTO 0 /HPF (0-3); SPECIFIC GRAVITY URINE AUTO 1.011 (1.002-1.035); SQUAMOUS EPITHELIAL CELL UR AU 0 /HPF (0-6); UROBILINOGEN, URINE AUTO 0.2 mg/dL (0.0-2.0); WBC, URINE AUTO 1 /HPF (0-3)
== END ==
LOC: M SMT 17:30
PROVIDERS: ATTEND Nurse Practitioner Women's Health
DX: N39.0 Urinary tract infection, site not specified (principal)
CPT/HCPCS: 51798; 81001; 87086; G0463

== ENCOUNTER → 2019-10-01 | Outpatient (REF) | payer MEDICARE, OTHER | LOC: M LAB REF 15:25 | PROVIDERS: ATTEND Internal Medicine Nephrology | DX: N17.9 Acute kidney failure, unspecified (principal); N20.0 Calculus of kidney ==

== ENCOUNTER → 2023-03-09 | Outpatient (REF) | payer MEDICARE, OTHER ==
[~2023-03-09] MED LIST changes: -AMLO10TA5 PO; +AMLO1TAB25 PO; +ASPI-569 PO; -ASPI81TAEC PO; +SIME80CH5 PO; -SIME80TA PO
== END ==
LOC: M LAB REF 16:26
PROVIDERS: ATTEND Internal Medicine
DX: M31.6 Other giant cell arteritis (principal)

== ENCOUNTER 2024-08-07 09:53 | Day surgery (SDC) | payer MEDICARE, BC ==
[~2024-08-07] VITALS: Ht 188 cm; Wt 101.2 kg
[~2024-08-07 09:53] MED LIST changes: +NS 1,000 ML IV ONE; -OXYB5TAB10 PO; +OXYB5TAB14 PO; -RAMI1CAP24; -RAMI1CAP24 PO; +RAMI5CAP60; +RAMI5CAP60 PO
[2024-08-07] MEDS ORDERED: propofoL 200 MG/20 ML VIAL As Ordered ONE (11:47)
[2024-08-07] MEDS ORDERED: LIDOCAINE 2% 100MG/5ML SDV (FOR ANES.) As Ordered ONE (11:47)
[2024-08-07 12:00] VITALS: BP 115/59; O2SAT 96
== END 2024-08-07 12:13 | disposition home or self-care (01) ==
LOC: M OPP 09:53
PROVIDERS: ATTEND Internal Medicine Gastroenterology
DX: Z12.11 Encounter for screening for malignant neoplasm of colon (principal); Z12.12 Encounter for screening for malignant neoplasm of rectum; K64.0 First degree hemorrhoids; K57.30 Diverticulosis of large intestine without perforation or abscess without bleeding; I10 Essential (primary) hypertension; E11.9 Type 2 diabetes mellitus without complications; N40.0 Benign prostatic hyperplasia without lower urinary tract symptoms; Z79.899 Other long term (current) drug therapy; Z79.84 Long term (current) use of oral hypoglycemic drugs; Z88.2 Allergy status to sulfonamides; Z90.89 Acquired absence of other organs
CPT/HCPCS: 93005; G0121